=== PATIENT | female | born 1950 | race African-American/Black ===

== ENCOUNTER 2023-02-10 04:02 | Observation (INO) | payer MEDICARE, SELFPAY ==
[2023-02-10] VITALS (20 sets, daily range): BP systolic 146–204; BP diastolic 60–110; PULSE 74–107; RESP 16–24; TEMP 37.7–38.9; O2SAT 94–100; BMI 38.6; BMI 37.1
--- NOTE | 2023-02-10 04:17 | XR_ITS ---
The [address] [address] Patient Name: JELANI ACKERMAN MRN: [id number] date: 1950 Sex: F Assigned Patient Location: ER Current Patient Location: ED.MAIN Accession/Order Number: [id number] Exam Date: 02/10/2023 04:16 Report Date: 02/10/2023 05:15 At the request of: KAYLA HAWKINS Procedure: XR chest 1V EXAMINATION: XR chest 1V HISTORY: shortness of breath COMPARISON: 07/26/2018 TECHNIQUE: AP portable erect FINDINGS: LUNGS: Mild bibasilar infiltrates. The upper lung zones are clear VASCULATURE: No increased pulmonary vasculature. PLEURA: No pneumothorax, effusion, or pleural thickening. CARDIAC: No cardiomegaly or cardiac silhouette abnormality. MEDIASTINUM: No visible mass or adenopathy. Aortic atherosclerosis BONES: Mild degenerative disc disease and spondylosis without visible acute abnormalities. OTHER: Negative. XR/XR chest 1V IMPRESSION: Mild bibasilar infiltrates Electronically authenticated by: DONIS GAFFNEY Date: 02/10/2023 05:15
[2023-02-10 04:27] LABS: Adenovirus NOT DETECTED (NOT DETECTE); Bordetella parapertussis NOT DETECTED (NOT DETECTE); Coronavirus 229E NOT DETECTED (NOT DETECTE); Coronavirus HKU1 NOT DETECTED (NOT DETECTE); Coronavirus NL63 NOT DETECTED (NOT DETECTE); Coronavirus OC43 NOT DETECTED (NOT DETECTE); Human Metapneumovirus NOT DETECTED (NOT DETECTE); Human Rhinovirus/Enterovirus NOT DETECTED (NOT DETECTE); Influenza A NOT DETECTED (NOT DETECTE); Influenza B NOT DETECTED (NOT DETECTE); Mycoplasma pneumoniae NOT DETECTED (NOT DETECTE); Parainfluenza Virus 1 NOT DETECTED (NOT DETECTE); Parainfluenza Virus 2 NOT DETECTED (NOT DETECTE); Parainfluenza Virus 3 NOT DETECTED (NOT DETECTE); Parainfluenza Virus 4 NOT DETECTED (NOT DETECTE); Respiratory Syncytial Virus NOT DETECTED (NOT DETECTE)
--- NOTE | 2023-02-10 04:28 | ED_ITS ---
HPI - SOB/Dyspnea General Chief Complaint: Shortness of Breath/Dyspnea Stated Complaint: TROUBLE BREATHING COUGH Time Seen by Provider: 02/10/23 04:25 Mode of arrival: Wheelchair Limitations: no limitations History of Present Illness HPI Narrative: patient presents complaining of shortness of breath. Has not taken lasix for one week. Did not take lasix because she had to run several errands and she is not able to hold her urine once she takes Lasix. States she has hard time breathing when she lays down. No fever or cough. No nausea. Positive fever. Complains of a cold that started yesterday MD elicited complaint: shortness of breath Related Data Home Medications Medication Instructions Recorded Confirmed alendronate 70 mg tablet 70 mg PO .weekly 02/10/23 02/10/23 atorvastatin 40 mg tablet 40 mg PO DAILY 02/10/23 02/10/23 calcium carbonate 500 mg-vitamin 1 tab PO DAILY 02/10/23 02/10/23 D3 10 mcg (400 unit) tablet (Calcium 500 With D) carbamazepine 200 mg tablet 200 mg PO BID 02/10/23 02/10/23 carvedilol 25 mg tablet 25 mg PO Q12H 02/10/23 02/10/23 furosemide 40 mg tablet 40 mg PO DAILY 02/10/23 02/10/23 gabapentin 300 mg capsule 300 mg PO Q12H 02/10/23 02/10/23 glipizide 5 mg tablet 5 mg PO DAILY 02/10/23 02/10/23 losartan 50 mg tablet 50 mg PO BID 02/10/23 02/10/23 metformin 500 mg tablet 500 mg PO BID 02/10/23 02/10/23 timolol maleate 0.5 % eye drops 1 drp ophthalmic (eye) DAILY 02/10/23 02/10/23 tramadol 50 mg tablet 50 mg PO .dailly PRN pain 02/10/23 02/10/23 Allergies Allergy/AdvReac Type Severity Reaction Status Date / Time No Known Drug Allergies Allergy Verified 02/10/23 04:17 Review of Systems ROS Status of ROS 10 or more systems reviewed and unremarkable except as noted in history and below PFSH PFSH Social History Smoking status: Former smoker Exam Constitutional Vital Signs, click to edit/add: Last Vital Signs Temp 100 F 02/10/23 06:04 Pulse 104 H 02/10/23 06:04 Resp 20 02/10/23 06:04 BP 158/60 H 02/10/23 06:04 Pulse Ox 98 02/10/23 06:04 O2 Del Method Room Air 02/10/23 06:04 Common normals: no apparent distress, oriented x3, healthy appearing and alert Eye Common normals: PERRL, EOMs intact bilaterally and conjunctivae normal Respiratory Common normals: normal respiratory effort, no retractions, no use of accessory muscles and clear to auscultation bilaterally Cardio Common normals: regular rate, regular rhythm, S1 normal heart sound and S2 normal heart sound GI Common normals: Normal to inspection, nondistended, normoactive bowel sounds present, soft to palpation and non-tender Extremity Common normals: normal to inspection and full ROM Neuro Common normals: oriented x3, CN's II-XII intact bilaterally, moves all extremities, no focal motor deficits and no sensory deficits noted Psych Appearance: grossly normal Course Vital Signs Vital signs: Vital Signs Temperature 102 F H 02/10/23 04:08 Pulse Rate 102 H 02/10/23 04:08 Respiratory Rate 24 02/10/23 04:08 Blood Pressure 178/80 H 02/10/23 04:08 Pulse Oximetry 100 02/10/23 04:08 Oxygen Delivery Method Room Air 02/10/23 04:08 Temperature 100 F 02/10/23 06:04 Pulse Rate 104 H 02/10/23 06:04 Respiratory Rate 20 02/10/23 06:04 Blood Pressure 158/60 H 02/10/23 06:04 Pulse Oximetry 98 02/10/23 06:04 Oxygen Delivery Method Room Air 02/10/23 06:04 MDM - SOB/Dyspnea MDM Narrative Medical decision making narrative: patient presents with orthopnea, fever and hypertensive urgency. ADmits to non compliance with lasix for the past week. Workup demonstrated CHF, COVID19 and hypertensive urgency. Treated in the department with hydralazine and her BP improved from 204/110 to 158/60. Lasix 40IVP given and she has used bedside commode to urinate. Xray with bibasilar infiltrates. She is improved but remains tachycardic and orthopneic .Discussed with Hospitalist Dr Ba and patient accepted for Obs admission Lab Data Labs: Lab Results 08/26/23 08/26/23 Range/Units 04:13 04:16 WBC 8.3 (4.0-11.0) 10^3/uL RBC 3.92 L (4.20-5.40) 10^6/uL Hgb 10.8 L (12.0-16.0) g/dL Hct 32.2 L (36.0-48.0) % MCV 82.1 (81.0-99.0) fL MCH 27.6 (26.7-34.0) pg MCHC 33.5 (29.9-35.2) g/dL RDW 16.4 H (11.0-15.0) % Plt Count 223 (150-450) 10^3/uL MPV 9.3 L (9.5-13.5) fL Neut % (Auto) 75.2 H (43.0-75.0) % Lymph % (Auto) 10.4 L (20.5-60.0) % [place] % (Auto) 12.3 H (1.7-12.0) % Eos % (Auto) 1.0 (0.9-7.0) % Baso % (Auto) 0.7 (0.2-2.0) % Neut # (Auto) 6.2 (1.4-6.5) 10^3/uL Lymph # (Auto) 0.9 L (1.2-3.8) 10^3/uL [place] # (Auto) 1.0 H (0.3-0.8) 10^3/uL Eos # (Auto) 0.1 (0.0-0.7) 10^3/uL Baso # (Auto) 0.1 (0.0-0.1) 10^3/uL Abs Immat Gran (auto) 0.03 (0.00-0.03) 10^3/uL Imm/Tot Granulo (auto) 0.4 (0.0-0.5) % Sodium 135 L (136-145) mmol/L Potassium 3.8 (3.5-5.1) mmol/L Chloride 102 (98-107) mmol/L Carbon Dioxide 25.5 (21.0-32.0) mmol/L Anion Gap 11.3 BUN 15.0 (7.0-18.0) mg/dL Creatinine 0.96 (0.55-1.02) mg/dL Est GFR ( Amer) >60 (>=60) Est GFR (Non-Af Amer) 57 L (>=60) BUN/Creatinine Ratio 15.6 Glucose 145 H (74-106) mg/dL Calcium 9.2 (8.5-10.1) mg/dL Troponin I High Sens 7.6 (4.0-51.3) pg/mL NT-Pro-B Natriuret Pep 1033.0 H (<=900.0) pg/mL Adenovirus (PCR) Not detected (NOT DETECTE) C. pneumoniae DNA (PCR) Not detected (NOT DETECTE) Coronavirus Type OC43 Not detected (NOT DETECTE) Coronavirus Type HKU1 Not detected (NOT DETECTE) Coronavirus Type 229E Not detected (NOT DETECTE) Coronavirus Type NL63 Not detected (NOT DETECTE) Human Metapneumovir PCR Not detected (NOT DETECTE) M. pneumoniae (PCR) Not detected (NOT DETECTE) Parainfluenza PCR Not detected (NOT DETECTE) Parainfluenza 2 (PCR) Not detected (NOT DETECTE) Parainfluenza 3 (PCR) Not detected (NOT DETECTE) Parainfluenza 4 (PCR) Not detected (NOT DETECTE) RSV (RT-PCR) Not detected (NOT DETECTE) Entero/Rhino (PCR) Not detected (NOT DETECTE) SARS-CoV-2 (PCR) Detected A (NOT DETECTE) Bordetella pertussis (PCR) Not detected (NOT DETECTE) B parapertussis DNA PCR Not detected (NOT DETECTE) Influenza Type A (PCR) Not detected (NOT DETECTE) Influenza Type B (PCR) Not detected (NOT DETECTE) Discharge Plan Discharge Chief Complaint: Shortness of Breath/Dyspnea Clinical Impression: Hypertensive urgency, COVID-19, Congestive heart failure Patient Disposition: Admitted as Observation
--- NOTE | 2023-02-10 04:31 | ECG_ITS ---
The [facility] Test Date: 2023-02-10 Pat Name: JELANI ACKERMAN Department: Room: - Gender: Female Cook Box Filler: : 1950 Requested By: SHAIKH GUY Order Number: [id number] Reading MD: TAYE MORRIS Measurements Intervals [place] Rate: 104 P: 67 IL: 166 QRS: 36 QRSD: 76 T: 43 QT: 324 QTc: 384 Interpretive Statements 1120 Sinus tachycardia 9140 abnormal rhythm ECG No previous ECG available for comparison Electronically Signed On 02-11-2023 18:07:18 EDT by TAYE MORRIS
[2023-02-10 04:37] LABS: Basophils Absolute Auto 0.1 10^3/uL (0.0-0.1); Basophils Percent Auto 0.7 % (0.2-2.0); Eosinophils Absolute Auto 0.1 10^3/uL (0.0-0.7); Hematocrit 32.2 % (36.0-48.0); Hemoglobin 10.8 g/dL (12.0-16.0); Immature Granulocytes Abs Auto 0.03 10^3/uL (0.00-0.03); Immature Granulocytes Pct Auto 0.4 % (0.0-0.5); Lymphocytes Absolute Auto 0.9 10^3/uL (1.2-3.8); Lymphocytes Percent Auto 10.4 % (20.5-60.0); Mean Corpuscular HGB Conc 33.5 g/dL (29.9-35.2); Mean Corpuscular Hemoglobin 27.6 pg (26.7-34.0); Mean Corpuscular Volume 82.1 fL (81.0-99.0); Mean Platelet Volume 9.3 fL (9.5-13.5); Monocytes Percent Auto 12.3 % (1.7-12.0); Neutrophils Absolute Auto 6.2 10^3/uL (1.4-6.5); Neutrophils Percent Auto 75.2 % (43.0-75.0); Platelet Count 223 10^3/uL (150-450); Red Blood Count 3.92 10^6/uL (4.20-5.40); Red Cell Distribution Width 16.4 % (11.0-15.0); White Blood Count 8.3 10^3/uL (4.0-11.0)
[2023-02-10 04:56] LABS: Anion Gap 11.3; BUN Creatinine Ratio 15.6; Calcium 9.2 mg/dL (8.5-10.1); Carbon Dioxide 25.5 mmol/L (21.0-32.0); Chloride 102 mmol/L (98-107); Estimated GFR (African America >60 (>=60); Estimated GFR (Non-African Ame 57 (>=60); Glucose 145 mg/dL (74-106); Potassium 3.8 mmol/L (3.5-5.1); Sodium 135 mmol/L (136-145); Troponin I High Sensitivity 7.6 pg/mL (4.0-51.3)
[2023-02-10] MEDS: ACETAMINOPHEN 500 MG TABLET 1000 MG PO (05:11)
[2023-02-10] MEDS: FUROSEMIDE 40 MG/4 ML VIAL IVP (05:12)
[2023-02-10] MEDS: HYDRALAZINE HCL 20 MG/ML VIAL 5 MG IVP (05:12)
[2023-02-10 05:15] LABS: SARS-CoV-2 DETECTED (NOT DETECTE)
--- NOTE | 2023-02-10 07:48 | P.HP_ITS ---
H&P: HPI History of Present Illness Chief complaint: TROUBLE BREATHING/COUGH/CHF/HYPERTENSION/ + COVID Narrative: patient is a 73-year-old -Armenian female with past medical history of diastolic heart failure, hypertension, type 2 diabetes, chronic kidney disease. She presented to the Emergency Room this morning with shortness of breath at rest. She said yesterday she developed her symptoms and was extremely fatigued with a runny nose. She has Lasix 40 mg by mouth that she takes as needed with any acute symptoms of overload. She has not noticed any increased swelling except for some mild pain of her left lower extremity. She denies any cough but has also been experiencing some fevers and chills. Her daughter brought her to the Emergency Room when she was having issues breathing and was found to be COVID positive. Elevated proBNP, daughter and niece present at bedside during admission exam. Review of Systems ROS Narrative ROS: a complete review of systems were reviewed with patient and are positive as below or listed in History of Chief Complaint. General: fever and chills, no night sweats Head: no headache, trauma, visual changes, nausea or vomiting Skin: no reported rashes, itching or sores Eyes: no blurriness of vision Ears: no reported hearing loss, vertigo, earache, or tinnitus Throat: no sore throat, hoarseness, swelling of neck, or tongue pain Heart: no chest pain Lungs: shortness of breath and cough GI: no diarrhea or vomiting/nausea Urinary: no urinary urgency, frequency or pain Neuro: no numbness or tingling HEM: no bleeding issues or bruising ENDO: no thyroid problems Psych: no anxiety or depression PFSH [facility] Medical History (Updated 02/10/23 @ 10:43 by Kenya Ba DO) Social History Smoking status: Former smoker Meds Home Medications and Allergies Home Medications Medication Instructions Recorded Confirmed Type alendronate 70 mg tablet 70 mg PO .weekly 02/10/23 02/10/23 History atorvastatin 40 mg tablet 40 mg PO DAILY 02/10/23 02/10/23 History calcium carbonate 500 mg-vitamin 1 tab PO DAILY 02/10/23 02/10/23 History D3 10 mcg (400 unit) tablet (Calcium 500 With D) carbamazepine 200 mg tablet 200 mg PO BID 02/10/23 02/10/23 History carvedilol 25 mg tablet 25 mg PO Q12H 02/10/23 02/10/23 History furosemide 40 mg tablet 40 mg PO DAILY 02/10/23 02/10/23 History gabapentin 300 mg capsule 300 mg PO Q12H 02/10/23 02/10/23 History glipizide 5 mg tablet 5 mg PO DAILY 02/10/23 02/10/23 History losartan 50 mg tablet 50 mg PO BID 02/10/23 02/10/23 History metformin 500 mg tablet 500 mg PO BID 02/10/23 02/10/23 History timolol maleate 0.5 % eye drops 1 drp ophthalmic (eye) DAILY 02/10/23 02/10/23 History tramadol 50 mg tablet 50 mg PO .dailly PRN pain 02/10/23 02/10/23 History Allergies Allergy/AdvReac Type Severity Reaction Status Date / Time No Known Drug Allergies Allergy Verified 02/10/23 04:17 Exam Narrative Exam Narrative: General: Patient is alert, and oriented to person, place and time with normal affect, proper hygiene Skin: no visible rashes, or ulcers Head: atraumatic, acephalic Eyes: PERRLA, no nystagmus present, conjunctiva clear, no scleral icterus Ears: normal gross auditory acuity Mouth/Throat: patient wearing a mask Neck: no masses palpated, normal thyroid, no JVD or audible carotid bruits Heart: Normal rate and rhythm, no murmurs/rubs/gallops Lungs: no audible wheezes, crackles and normal breath sounds all lung mantilla Abdomen: Normal audible bowel sounds, no distension, No palpable masses, no organomegaly, no rebound/guarding/ or rigidity Musculoskeletal: muscle atrophy noted, ROM is limited due to being in hospital bed, mild swelling bilateral lower extremities Vascular: Normal carotid, radial, femoral, posterior tibial, and dorsalis pedis pulses Lymph: no supraclavicular, axillary, or anterior/posterior cervical adenopathy Neuro: CN II-X grossly intact, normal sensation upper and lower extremities Constitutional Vital Signs, click to edit/add: Last Vital Signs Temp 100 F 02/10/23 06:04 Pulse 102 H 02/10/23 06:35 Resp 20 02/10/23 06:35 BP 150/68 H 02/10/23 06:35 Pulse Ox 98 02/10/23 06:35 O2 Del Method Room Air 02/10/23 06:35 Results Labs Labs: Short CBC 02/10/23 Range/Units 04:13 WBC 8.3 (4.0-11.0) 10^3/uL Hgb 10.8 L (12.0-16.0) g/dL Hct 32.2 L (36.0-48.0) % Plt Count 223 (150-450) 10^3/uL BMP 02/10/23 04:13 Sodium 135 L Potassium 3.8 Chloride 102 Carbon Dioxide 25.5 BUN 15.0 Creatinine 0.96 Glucose 145 H Calcium 9.2 Assessment and Plan Assessment and Plan (1) Acute diastolic (congestive) heart failure: Assessment and Plan: elevated proBNP in the one thousands, given a dose of Lasix 40 mg IV will continue this tomorrow morning. Monitor daily weights and and strict I's and O's and fluid restriction. (2) Hypertensive urgency: Assessment and Plan: improved with hydralazine, will continue home dosage of Coreg, and losartan (3) COVID-19: Assessment and Plan: monitor for any worsening signs, bilateral infiltrates noted on chest x-ray. Patient was started on Paxlovid (4) Type 2 diabetes mellitus: Assessment and Plan: monitor fingersticks before every meal and daily at bedtime finding scale insulin if needed (5) Hypertension: Assessment and Plan: continue home medication (6) Diastolic heart failure: Plan patient is a full code Continue Lovenox for deep vein thrombosis prophylaxis Patient is observation status and is not expected to stay more than two midnights
[2023-02-10] MEDS: TIMOLOL MALEATE 0.5% OP SOL 100 DROPS/5 ML BOTTLE 1 DROP OP (09:05)
[2023-02-10] MEDS: CARVEDILOL 25 MG TABLET PO ×2 (09:06→20:32)
[2023-02-10] MEDS: CARBAMAZEPINE 200 MG TABLET PO ×2 (09:06→20:32)
[2023-02-10] MEDS: ACETAMINOPHEN 325 MG TABLET 650 MG PO ×2 (09:06→17:09)
[2023-02-10] MEDS: METFORMIN HCL 500 MG TABLET PO (09:06)
[2023-02-10] MEDS: ENOXAPARIN SODIUM 40 MG/0.4 ML SYRINGE SUBQ (09:06)
[2023-02-10] MEDS: LOSARTAN POTASSIUM 50 MG TABLET PO ×2 (09:07→20:32)
[2023-02-10] MEDS: GABAPENTIN 300 MG CAPSULE PO ×2 (09:07→20:32)
[2023-02-10 12:09] LABS: Glucometer 161 mg/dL (74-106)
[2023-02-10] MEDS: ALBUTEROL SULFATE 200 PUFF/6.7 GM INHALER IH ×2 (17:00→22:20)
[2023-02-10] MEDS: GLIPIZIDE 5 MG TABLET PO (17:14)
[2023-02-10 20:24] LABS: Glucometer 162 mg/dL (74-106)
[2023-02-10] MEDS: IBUPROFEN 600 MG TABLET PO (20:35)
[2023-02-10 20:46] LABS: Bilirubin Urine NEGATIVE (NEGATIVE); Blood Urine SMALL (NEGATIVE); Clarity Urine CLEAR (CLEAR); Color Urine YELLOW (YELLOW); Glucose Urine UA NEGATIVE (NEGATIVE); Ketones Urine TRACE mg/dL (NEGATIVE); Leukocyte Esterase Urine NEGATIVE (NEGATIVE); Nitrite Urine POSITIVE (NEGATIVE); Protein Urine 30 mg/dL (NEG/TRACE); pH Urine 5.5 (5.0-9.0)
[2023-02-10 20:47] LABS: Urine Microscopic Indicated YES
[2023-02-10 21:01] LABS: Bacteria Urine LARGE #/HPF (NONE SEEN); Cast Seen? NONE SEEN #/LPF (NONE SEEN); Crystals Seen? None Seen #/HPF (None Seen); Mucus Urine NONE SEEN (NONE SEEN); RBC Urine 0-2 #/HPF (0-2); Squamous Epithelial Cell Urine FEW #/LPF (NONE/RARE); Urine Culture Indicated YES
[2023-02-10] MEDS: ATORVASTATIN CALCIUM 40 MG TABLET PO (21:11)
[2023-02-10] MEDS: CEFTRIAXONE 1,000 MG in 0.9 % SODIUM CHLORIDE 50 ML 100 MG IV (21:42)
[2023-02-11] VITALS (19 sets, daily range): BP systolic 155–163; BP diastolic 86; PULSE 66–88; RESP 16–20; TEMP 36.1–37; O2SAT 96–100
[2023-02-11 05:09] LABS: Basophils Percent Auto 0.6 % (0.2-2.0); Eosinophils Percent Auto 0.2 % (0.9-7.0); Hematocrit 30.4 % (36.0-48.0); Immature Granulocytes Abs Auto 0.02 10^3/uL (0.00-0.03); Immature Granulocytes Pct Auto 0.4 % (0.0-0.5); Lymphocytes Absolute Auto 1.4 10^3/uL (1.2-3.8); Lymphocytes Percent Auto 26.6 % (20.5-60.0); Mean Corpuscular HGB Conc 32.9 g/dL (29.9-35.2); Mean Corpuscular Hemoglobin 27.1 pg (26.7-34.0); Mean Corpuscular Volume 82.4 fL (81.0-99.0); Mean Platelet Volume 9.4 fL (9.5-13.5); Monocytes Absolute Auto 1.1 10^3/uL (0.3-0.8); Monocytes Percent Auto 21.2 % (1.7-12.0); Neutrophils Absolute Auto 2.7 10^3/uL (1.4-6.5); Platelet Count 179 10^3/uL (150-450); Red Blood Count 3.69 10^6/uL (4.20-5.40); Red Cell Distribution Width 16.5 % (11.0-15.0); White Blood Count 5.2 10^3/uL (4.0-11.0)
[2023-02-11] MEDS: ALBUTEROL SULFATE 200 PUFF/6.7 GM INHALER IH ×4 (05:30→23:35)
[2023-02-11 05:34] LABS: Alanine Aminotransferase 24 U/L (14-59); Albumin Globulin Ratio 0.8; Albumin Level 3.1 g/dL (3.4-5.0); Alkaline Phosphatase 65 U/L (46-116); Anion Gap 9.2; Aspartate Amino Transferase 28 U/L (15-37); BUN Creatinine Ratio 17.6; Bilirubin Total 0.3 mg/dL (0.2-1.0); Calcium 8.3 mg/dL (8.5-10.1); Carbon Dioxide 26.7 mmol/L (21.0-32.0); Chloride 99 mmol/L (98-107); Estimated GFR (African America >60 (>=60); Estimated GFR (Non-African Ame >60 (>=60); Globulin 3.9 g/dL; Glucose 71 mg/dL (74-106); Sodium 132 mmol/L (136-145)
[2023-02-11 06:04] LABS: Potassium 2.9 mmol/L (3.5-5.1)
[2023-02-11] MEDS: GABAPENTIN 300 MG CAPSULE PO ×2 (08:30→21:43)
[2023-02-11] MEDS: ENOXAPARIN SODIUM 40 MG/0.4 ML SYRINGE SUBQ (08:30)
[2023-02-11] MEDS: LOSARTAN POTASSIUM 50 MG TABLET PO ×2 (08:30→21:43)
[2023-02-11] MEDS: METFORMIN HCL 500 MG TABLET PO ×2 (08:30→16:24)
[2023-02-11] MEDS: GLIPIZIDE 5 MG TABLET PO (08:30)
[2023-02-11] MEDS: POTASSIUM CHLORIDE 10 MEQ ER TABLET 20 MEQ PO ×2 (08:31→21:42)
[2023-02-11] MEDS: TIMOLOL MALEATE 0.5% OP SOL 100 DROPS/5 ML BOTTLE 1 DROP OP (08:31)
[2023-02-11] MEDS: CARBAMAZEPINE 200 MG TABLET PO ×2 (08:32→21:43)
[2023-02-11] MEDS: CARVEDILOL 25 MG TABLET PO ×2 (08:33→21:42)
--- NOTE | 2023-02-11 13:56 | P.PN_ITS ---
Progress Note: Subjective Subjective Interval history: patient is a 73-year-old -Japanese female with past medical history of diastolic heart failure, hypertension, type 2 diabetes, chronic kidney disease. She presented to the Emergency Room this morning with shortness of breath at rest. She said yesterday she developed her symptoms and was extremely fatigued with a runny nose. She has Lasix 40 mg by mouth that she takes as needed with any acute symptoms of overload. She has not noticed any increased swelling except for some mild pain of her left lower extremity. She denies any cough but has also been experiencing some fevers and chills. Her daughter brought her to the Emergency Room when she was having issues breathing and was found to be COVID positive. This morning patient is having some nausea and says she didn't sleep well last night. Normal vitals, and both legs hurt. Exam Narrative Exam Narrative: General: Patient is alert, and oriented to person, place and time with normal affect, proper hygiene Skin: no visible rashes, or ulcers Head: atraumatic, acephalic Eyes: PERRLA, no nystagmus present, conjunctiva clear, no scleral icterus Ears: normal gross auditory acuity Mouth/Throat: patient wearing a mask Neck: no masses palpated, normal thyroid, no JVD or audible carotid bruits Heart: Normal rate and rhythm, no murmurs/rubs/gallops Lungs: no audible wheezes, crackles and normal breath sounds all lung mantilla Abdomen: Normal audible bowel sounds, no distension, No palpable masses, no organomegaly, no rebound/guarding/ or rigidity Musculoskeletal: muscle atrophy noted, ROM is limited due to being in hospital bed, mild swelling bilateral lower extremities Vascular: Normal carotid, radial, femoral, posterior tibial, and dorsalis pedis pulses Lymph: no supraclavicular, axillary, or anterior/posterior cervical adenopathy Neuro: CN II-X grossly intact, normal sensation upper and lower extremities Constitutional Vital Signs, click to edit/add: Last Vital Signs Temp 98.4 F 02/11/23 04:10 Pulse 68 02/11/23 12:12 Resp 20 02/11/23 11:14 BP 160/86 H 02/11/23 04:10 Pulse Ox 96 02/11/23 11:20 O2 Del Method Room Air 02/11/23 11:20 Progress Note: Objective Labs Labs: Short CBC 02/11/23 Range/Units 04:26 WBC 5.2 (4.0-11.0) 10^3/uL Hgb 10.0 L (12.0-16.0) g/dL Hct 30.4 L (36.0-48.0) % Plt Count 179 (150-450) 10^3/uL BMP 02/11/23 04:26 Sodium 132 L Potassium 2.9 L* Chloride 99 Carbon Dioxide 26.7 BUN 16.0 Creatinine 0.91 Glucose 71 L Calcium 8.3 L Liver Function 02/11/23 Range/Units 04:26 Total Bilirubin 0.3 (0.2-1.0) mg/dL AST 28 (15-37) U/L ALT 24 (14-59) U/L Alkaline Phosphatase 65 (46-116) U/L Albumin 3.1 L (3.4-5.0) g/dL Urine 02/10/23 Range/Units 20:20 Urine Color Yellow (YELLOW) Urine Clarity Clear (CLEAR) Urine pH 5.5 (5.0-9.0) Ur Specific [place] 1.020 (1.005-1.025) Urine Protein 30 A (NEG/TRACE) mg/dL Urine Glucose (UA) Negative (NEGATIVE) mg/dL Progress Note: A&P Assessment and Plan (1) Acute diastolic (congestive) heart failure: (2) Hypertensive urgency: (3) COVID-19: (4) Type 2 diabetes mellitus: (5) Hypertension: (6) Diastolic heart failure: (7) UTI (urinary tract infection): Plan (1) Acute diastolic (congestive) heart failure: Assessment and Plan: elevated proBNP in the one thousands, given a dose of Lasix 40 mg IV will continue this tomorrow morning. Monitor daily weights and and strict I's and O's and fluid restriction. (2) Hypertensive urgency: Assessment and Plan: improved with hydralazine, will continue home dosage of Coreg, and losartan (3) COVID-19: Assessment and Plan: monitor for any worsening signs, bilateral infiltrates noted on chest x-ray. Patient was started on Paxlovid (4) Type 2 diabetes mellitus: Assessment and Plan: monitor fingersticks before every meal and daily at bedtime finding scale insulin if needed (5) Hypertension: Assessment and Plan: continue home medication (6) hypokalemia replace with klorcon 20meq BID (7) UTI-continue rocephin Plan patient is a full code Continue Lovenox for deep vein thrombosis prophylaxis Patient is observation status and is not expected to stay more than two midnights hopeful discharge tomorrow
[2023-02-11 20:19] LABS: Glucometer 168 mg/dL (74-106)
[2023-02-11] MEDS: ATORVASTATIN CALCIUM 40 MG TABLET PO (21:42)
[2023-02-11] MEDS: CEFTRIAXONE 1,000 MG in 0.9 % SODIUM CHLORIDE 50 ML 100 MG IV (21:43)
[2023-02-12] VITALS (7 sets, daily range): BP systolic 134; BP diastolic 65; PULSE 67–77; RESP 18–20; TEMP 36.9; O2SAT 94–100
[2023-02-12 05:06] LABS: Basophils Percent Auto 0.4 % (0.2-2.0); Eosinophils Percent Auto 0.4 % (0.9-7.0); Hematocrit 31.3 % (36.0-48.0); Hemoglobin 10.2 g/dL (12.0-16.0); Immature Granulocytes Abs Auto 0.02 10^3/uL (0.00-0.03); Immature Granulocytes Pct Auto 0.4 % (0.0-0.5); Lymphocytes Absolute Auto 2.6 10^3/uL (1.2-3.8); Lymphocytes Percent Auto 44.9 % (20.5-60.0); Mean Corpuscular HGB Conc 32.6 g/dL (29.9-35.2); Mean Corpuscular Hemoglobin 26.9 pg (26.7-34.0); Mean Corpuscular Volume 82.6 fL (81.0-99.0); Mean Platelet Volume 9.7 fL (9.5-13.5); Monocytes Absolute Auto 0.7 10^3/uL (0.3-0.8); Monocytes Percent Auto 12.6 % (1.7-12.0); Neutrophils Absolute Auto 2.4 10^3/uL (1.4-6.5); Neutrophils Percent Auto 41.3 % (43.0-75.0); Platelet Count 185 10^3/uL (150-450); Red Blood Count 3.79 10^6/uL (4.20-5.40); Red Cell Distribution Width 16.6 % (11.0-15.0); White Blood Count 5.7 10^3/uL (4.0-11.0)
[2023-02-12 05:48] LABS: Alanine Aminotransferase 28 U/L (14-59); Albumin Globulin Ratio 0.8; Albumin Level 2.9 g/dL (3.4-5.0); Alkaline Phosphatase 59 U/L (46-116); Anion Gap 9.7; Aspartate Amino Transferase 30 U/L (15-37); BUN Creatinine Ratio 10.6; Bilirubin Total 0.2 mg/dL (0.2-1.0); Carbon Dioxide 25.7 mmol/L (21.0-32.0); Chloride 106 mmol/L (98-107); Estimated GFR (African America >60 (>=60); Estimated GFR (Non-African Ame >60 (>=60); Globulin 3.7 g/dL; Glucose 104 mg/dL (74-106); Potassium 3.4 mmol/L (3.5-5.1); Sodium 138 mmol/L (136-145); Total Protein 6.6 g/dL (6.4-8.2)
[2023-02-12] MEDS: ALBUTEROL SULFATE 200 PUFF/6.7 GM INHALER IH ×2 (05:55→11:01)
--- NOTE | 2023-02-12 08:38 | PM.DS1 ---
DS: Providers Provider Date of admission: 02/10/23 06:20 Primary care physician: Shaikh Andrea MD Admitting clinician: Anjum Hannah Consults: 02/10/23 07:43 Occupational Therapy Eval and Treat Routine Reason for consultation: deconditioning Has provider been notified: No Physical Therapy Eval and Treat Routine Reason for consultation: deconditioning Has provider been notified: No Discharging clinician: Kenya Ba DS: Diagnosis Discharge Diagnosis (1) Acute diastolic (congestive) heart failure: (2) Hypertensive urgency: (3) COVID-19: (4) Type 2 diabetes mellitus: (5) Hypertension: (6) Diastolic heart failure: (7) UTI (urinary tract infection): DS: Summary Hospital Course Hospital Course: symptoms of acute congestive heart failure seemed to improve with one dose of IV Lasix 40 mg. Patient did experience some hypokalemia which was normalized on by mouth Klor-Con 20 mEq twice a day. Patient remained afebrile overnight and is feeling much better today after two days on the Paxlovid. Patient was also started on Rocephin which will be transitioned to ciprofloxacin for urinary tract infection. ELVER Murphy today. Addition of Paxlovid to finish pack and ciprofloxacin no other changes to her medications will resume all of these when she is discharged home today. Patient has not required any oxygen secondary to having Covid 19, afebrile. She feels overall improved from beginning of this day. She will be sent home with home health services. follow up with PCP 5-7 days Status at Discharge Functional status at discharge: independent ambulation Time Spent with Patient Time attestation: Total time spent providing and/or coordinating discharge services: Exam Narrative Exam Narrative: General: Patient is alert, and oriented to person, place and time with normal affect, proper hygiene Skin: no visible rashes, or ulcers Head: atraumatic, acephalic Eyes: PERRLA, no nystagmus present, conjunctiva clear, no scleral icterus Neck: no masses palpated, normal thyroid, no JVD or audible carotid bruits Heart: Normal rate and rhythm, no murmurs/rubs/gallops Lungs: no audible wheezes, crackles and normal breath sounds all lung mantilla Abdomen: Normal audible bowel sounds, no distension, No palpable masses, no organomegaly, no rebound/guarding/ or rigidity Musculoskeletal: muscle atrophy noted, ROM is limited due to being in hospital bed, no swelling bilateral lower extremities Vascular: Normal carotid, radial, femoral, posterior tibial, and dorsalis pedis pulses Lymph: no supraclavicular, axillary, or anterior/posterior cervical adenopathy Neuro: CN II-X grossly intact, normal sensation upper and lower extremities Constitutional Vital Signs, click to edit/add: Last Vital Signs Temp 98.5 F 02/12/23 06:00 Pulse 72 02/12/23 07:46 Resp 20 02/12/23 06:00 BP 134/65 02/12/23 06:00 Pulse Ox 94 L 02/12/23 06:00 O2 Del Method Room Air 02/12/23 06:00 DS: Data Data Completed and Pending Labs on day of discharge: Labs from last 24 hours 02/12/23 02/11/23 04:23 20:14 WBC 5.7 RBC 3.79 L Hgb 10.2 L Hct 31.3 L MCV 82.6 MCH 26.9 MCHC 32.6 RDW 16.6 H Plt Count 185 MPV 9.7 Neut % (Auto) 41.3 L Lymph % (Auto) 44.9 [place] % (Auto) 12.6 H Eos % (Auto) 0.4 L Baso % (Auto) 0.4 Neut # (Auto) 2.4 Lymph # (Auto) 2.6 [place] # (Auto) 0.7 Eos # (Auto) 0.0 Baso # (Auto) 0.0 Abs Immat Gran (auto) 0.02 Imm/Tot Granulo (auto) 0.4 Sodium 138 Potassium 3.4 L Chloride 106 Carbon Dioxide 25.7 Anion Gap 9.7 BUN 9.0 Creatinine 0.85 Est GFR ( Amer) >60 Est GFR (Non-Af Amer) >60 BUN/Creatinine Ratio 10.6 Glucose 104 Calcium 8.0 L Total Bilirubin 0.2 AST 30 ALT 28 Alkaline Phosphatase 59 NT-Pro-B Natriuret Pep 251.0 Total Protein 6.6 Albumin 2.9 L Globulin 3.7 Albumin/Globulin Ratio 0.8 POC Glucose 168 H Discharge Plan Discharge Disposition: Home Health Service Discharge Medications: New Paxlovid 300 mg (150 mg x 2)-100 mg Tablets,Dose Pack 1 ea PO BID Qty: 30 0RF Rx Instructions: patient will be sent home with remainder of pack inpatient ciprofloxacin HCl 500 mg tablet 500 mg PO Q12H 7 Days Qty: 14 0RF Continued alendronate 70 mg tablet 70 mg PO .weekly atorvastatin 40 mg tablet 40 mg PO DAILY calcium carbonate-vitamin D3 [Calcium 500 With D] 500 mg-10 mcg (400 unit) tablet 1 tab PO DAILY carbamazepine 200 mg tablet 200 mg PO BID carvedilol 25 mg tablet 25 mg PO Q12H furosemide 40 mg tablet 40 mg PO DAILY gabapentin 300 mg capsule 300 mg PO Q12H glipizide 5 mg tablet 5 mg PO DAILY losartan 50 mg tablet 50 mg PO BID metformin 500 mg tablet 500 mg PO BID timolol maleate 0.5 % drops 1 drp OPHTHALMIC (EYE) DAILY Rx Instructions: 1 drop both eyes every morning tramadol 50 mg tablet 50 mg PO .dailly PRN (Reason: pain) Activity: increase activity as tolerated Diet: advance to your usual diet Patient Instructions: Ciprofloxacin (By mouth), Nirmatrelvir/Ritonavir (By mouth) (Paxlovid), Heart Healthy Diet (DC), Droplet Precautions (ED), COVID-19 (Coronavirus Disease 2019) (ELVER) Box Annealer/Control Panel Operator Instructions: Discharge with [facility], phone number is [phone], they will contact within 48 hours of discharge. Forms: Portal Instructions Follow Up Appointments: Follow up appt. with Dr. Mendez on @ 2:45pm Office #: [phone] This is the soonest available appt. - Dr. Mendez on vacation
[2023-02-12] MEDS: CARBAMAZEPINE 200 MG TABLET PO (08:46)
[2023-02-12] MEDS: POTASSIUM CHLORIDE 10 MEQ ER TABLET 20 MEQ PO (08:46)
[2023-02-12] MEDS: METFORMIN HCL 500 MG TABLET PO (08:46)
[2023-02-12] MEDS: GABAPENTIN 300 MG CAPSULE PO (08:47)
[2023-02-12] MEDS: LOSARTAN POTASSIUM 50 MG TABLET PO (08:47)
[2023-02-12] MEDS: CARVEDILOL 25 MG TABLET PO (08:47)
[2023-02-12] MEDS: GLIPIZIDE 5 MG TABLET PO (08:47)
[2023-02-12] MEDS: ENOXAPARIN SODIUM 40 MG/0.4 ML SYRINGE SUBQ (08:47)
[2023-02-12] MEDS: TIMOLOL MALEATE 0.5% OP SOL 100 DROPS/5 ML BOTTLE 1 DROP OP (08:48)
[2023-02-12 11:15] LABS: Glucometer 148 mg/dL (74-106)
--- NOTE | 2023-02-12 11:20 | SWNOTE1 ---
SW received message from case management and pt is agreeable to home health and it is recommended. Pt did not have a preference, SW sent referral to [facility]. SW recevied call from [facility] and they do not have the staffing. SW sent referral to [facility].
--- NOTE | 2023-02-12 11:34 | CM.NOTE ---
Rounds made with catarino Wilson for discharge to home today. PT recommends HH at discharge. Pt does not have a preference but agrees to HH.
--- NOTE | 2023-02-12 11:48 | PT.DAILY ---
Physical Therapy Daily Note PT Daily Note/Assess Start: 02/12/23 11:45 Freq: Status: Active Protocol: Document 02/12/23 11:45 NICOLE (Rec: 02/12/23 11:48 RODWASHINGTON [id number]) Physical Therapy Daily Note/Assessment Time In/Time Out Time In 11:30 Time Out 11:45 Pain In Pain N/A Pain Out Pain N/A Subjective Subjective Supine upon arrival. Agrees to PT. SpO2 97% on room air prior to session. Therapeutic Exercise Time Therapeutic Exercise Minutes (minutes) 5 Therapeutic Exercise Units 1 Therapeutic Exercise Treatment Therapeutic Exercise Treatment Seated LE strengthening ex complete while sitting EOB unsupported - 10x ea. Therapeutic Activity Time Therapeutic Activity Minutes (minutes) 8 Therapeutic Activity Units 1 Therapeutic Activity Treatment Bed Mobility Ability Modified Independent Chair Transfer Ability Modified Independent Therapeutic Activity Comments Pt performs supine>sit transfer with Chastity due to needing increased time to complete this transfer. Sits EOB unsupported for 5 min to complete seated ex without LOB - good dynamic sitting balance. Sit>stand Chastity as she needs bed elevated. Amb laps in room for 100' total with RW , SBA for safety. No LOB - slow mahendra. Returned supine IND. Remains supine with call light in reach and needs met. Total Physical Therapy Time Total Therapy Minutes 13 Total Physical Therapy Units 2 Summary Daily Note Summary Improved transfer ability and gait endurance .SPO2 94% with activity on room air.
--- NOTE | 2023-02-12 11:56 | SWNOTE1 ---
[facility] is not able to accept, referral sent to [facility] and they are able to accept. SW let nursing know and pt.
--- NOTE | 2023-02-12 12:21 | CM.NOTE ---
Medicare Outpatient Observation Notice discussed with pt, pt verbalizes understanding and signs paper. Original given to pt and copy placed on pt's chart.
--- NOTE | 2023-02-15 15:55 | CM.DCFOLLOWU ---
3 discharge follow up calls were attempted, no answer, went to voicemail all 3 attempts.
== END 2023-02-12 15:08 | disposition home health service (06) ==
LOC: ER 06:23 → MS 07:44
PROVIDERS: Internal Medicine; Admitting Provider Family Medicine; Emergency Provider Internal Medicine; PCP Internal Medicine; Visit Provider Family Medicine
DX: I11.0 Hypertensive heart disease with heart failure (principal); I50.33 Acute on chronic diastolic (congestive) heart failure; U07.1 COVID-19; I16.0 Hypertensive urgency; E11.9 Type 2 diabetes mellitus without complications; N39.0 Urinary tract infection, site not specified; E87.6 Hypokalemia; Z79.899 Other long term (current) drug therapy; Z79.84 Long term (current) use of oral hypoglycemic drugs; E11.22 Type 2 diabetes mellitus with diabetic chronic kidney disease; N18.9 Chronic kidney disease, unspecified; T50.1X6A Underdosing of loop [high-ceiling] diuretics, initial encounter; Z91.128 Patient's intentional underdosing of medication regimen for other reason; R91.8 Other nonspecific abnormal finding of lung field; Z87.891 Personal history of nicotine dependence; B96.1 Klebsiella pneumoniae [K. pneumoniae] as the cause of diseases classified elsewhere
CPT/HCPCS: 0202U; 36415; 51702; 51798; 71045; 80048; 80053; 81001; 82948; 83880; 84484; 85025; 87040; 87086; 87150; 87186; 93005; 94640; 94761; 96365; 96372; 96375; 97110; 97162; 97530; 99285; G0378

== ENCOUNTER 2023-03-05 16:14 | Outpatient (OUT) | payer MEDICARE, SELFPAY ==
[2023-03-05 16:50] LABS: Anion Gap 11.5; BUN Creatinine Ratio 16.8; Calcium 9.2 mg/dL (8.5-10.1); Carbon Dioxide 30.5 mmol/L (21.0-32.0); Chloride 103 mmol/L (98-107); Estimated GFR (African America >60 (>=60); Estimated GFR (Non-African Ame 58 (>=60); Glucose 110 mg/dL (74-106); Sodium 141 mmol/L (136-145)
== END 2023-03-05 16:15 | disposition home or self-care (01) ==
PROVIDERS: PCP Internal Medicine; Visit Provider Internal Medicine
DX: I10 Essential (primary) hypertension (principal)
CPT/HCPCS: 36415; 80048

== ENCOUNTER 2023-04-16 10:43 | Outpatient (OUT) | payer MEDICARE, SELFPAY ==
--- NOTE | 2023-04-16 10:56 | XR_ITS ---
The [address] [address] Patient Name: JELANI ACKERMAN MRN: [id number] date: 1950 Sex: F Assigned Patient Location: [facility] Current Patient Location: [facility] Accession/Order Number: [id number] Exam Date: 04/16/2023 11:17 Report Date: 04/16/2023 11:28 At the request of: SHAIKH GUY Procedure: XR chest 2V EXAM: XR chest 2V HISTORY: Post COVID Chronic Cough R05.3 COMPARISON: None. TECHNIQUE: PA and lateral views of the chest. FINDINGS: The cardiomediastinal silhouette is normal. No focal consolidation is identified. There is no pneumothorax. No pleural effusion is noted. The osseous structures are intact. XR/XR chest 2V IMPRESSION: No acute cardiopulmonary process. Electronically authenticated by: SABINO BRAXTON Date: 04/16/2023 11:28
== END 2023-04-16 10:44 | disposition home or self-care (01) ==
LOC: RAD 10:45
PROVIDERS: PCP Internal Medicine; Visit Provider Internal Medicine
DX: R05.3 Chronic cough (principal); E66.9 Obesity, unspecified; Z68.30 Body mass index [BMI] 30.0-30.9, adult
CPT/HCPCS: 71046

== ENCOUNTER 2023-12-03 12:11 | Outpatient (OUT) | payer MEDICARE, SELFPAY ==
[2023-12-03 12:41] LABS: Basophils Absolute Auto 0.1 10^3/uL (0.0-0.1); Basophils Percent Auto 0.8 % (0.2-2.0); Eosinophils Absolute Auto 0.1 10^3/uL (0.0-0.7); Eosinophils Percent Auto 1.1 % (0.9-7.0); Hematocrit 33.8 % (36.0-48.0); Hemoglobin 10.9 g/dL (12.0-16.0); Immature Granulocytes Abs Auto 0.03 10^3/uL (0.00-0.03); Immature Granulocytes Pct Auto 0.3 % (0.0-0.5); Lymphocytes Absolute Auto 2.8 10^3/uL (1.2-3.8); Mean Corpuscular HGB Conc 32.2 g/dL (29.9-35.2); Mean Corpuscular Hemoglobin 27.1 pg (26.7-34.0); Mean Corpuscular Volume 84.1 fL (81.0-99.0); Mean Platelet Volume 9.3 fL (9.5-13.5); Monocytes Absolute Auto 0.7 10^3/uL (0.3-0.8); Neutrophils Percent Auto 57.8 % (43.0-75.0); Platelet Count 236 10^3/uL (150-450); Red Blood Count 4.02 10^6/uL (4.20-5.40); Red Cell Distribution Width 15.6 % (11.0-15.0); White Blood Count 8.7 10^3/uL (4.0-11.0)
[2023-12-03 13:40] LABS: Creatinine Urine Random 88.86 mg/dL (20.00-300.00); Microalbum Creatinine Ratio Ur 14.6 mg/g (0.0-29.9); Microalbumin Urine Random <1.3 mg/dL (<=30.0)
[2023-12-03 14:08] LABS: Alanine Aminotransferase 21 U/L (14-59); Albumin Globulin Ratio 0.8; Albumin Level 3.4 g/dL (3.4-5.0); Alkaline Phosphatase 97 U/L (46-116); Anion Gap 6.4; Aspartate Amino Transferase 16 U/L (15-37); BUN Creatinine Ratio 17.9; Bilirubin Total 0.3 mg/dL (0.2-1.0); Calcium 9.9 mg/dL (8.5-10.1); Chloride 103 mmol/L (98-107); Cholesterol 178 mg/dL (<=200); Estimated GFR (African America >60 (>=60); Estimated GFR (Non-African Ame 58 (>=60); Globulin 4.3 g/dL; Glucose 162 mg/dL (74-106); HDL Cholesterol 88 mg/dL (40-60); Potassium 4.4 mmol/L (3.5-5.1); Sodium 136 mmol/L (136-145); Total Protein 7.7 g/dL (6.4-8.2); Triglycerides 42 mg/dL (<=150); VLDL CHOLESTEROL 8.4 mg/dL
[2023-12-03 14:11] LABS: Estimated Average Glucose 157 mg/dL; Glycohemoglobin A1C 7.1 % (4.5-6.2)
== END 2023-12-03 12:12 | disposition home or self-care (01) ==
LOC: LAB 12:13
PROVIDERS: PCP Internal Medicine; Visit Provider Internal Medicine
DX: E78.2 Mixed hyperlipidemia (principal); E11.42 Type 2 diabetes mellitus with diabetic polyneuropathy; I10 Essential (primary) hypertension; I50.32 Chronic diastolic (congestive) heart failure
CPT/HCPCS: 36415; 80053; 80061; 82043; 82570; 83036; 85025

== ENCOUNTER 2024-03-18 09:23 | Outpatient (OUT) | payer MEDICARE, SELFPAY ==
[2024-03-18 09:48] LABS: Basophils Absolute Auto 0.1 10^3/uL (0.0-0.1); Basophils Percent Auto 0.7 % (0.2-2.0); Eosinophils Absolute Auto 0.1 10^3/uL (0.0-0.7); Eosinophils Percent Auto 1.2 % (0.9-7.0); Hematocrit 33.4 % (36.0-48.0); Immature Granulocytes Abs Auto 0.02 10^3/uL (0.00-0.03); Immature Granulocytes Pct Auto 0.2 % (0.0-0.5); Lymphocytes Absolute Auto 2.7 10^3/uL (1.2-3.8); Lymphocytes Percent Auto 32.7 % (20.5-60.0); Mean Corpuscular HGB Conc 32.9 g/dL (29.9-35.2); Mean Corpuscular Hemoglobin 28.1 pg (26.7-34.0); Mean Corpuscular Volume 85.4 fL (81.0-99.0); Mean Platelet Volume 9.3 fL (9.5-13.5); Monocytes Absolute Auto 0.7 10^3/uL (0.3-0.8); Monocytes Percent Auto 7.9 % (1.7-12.0); Neutrophils Absolute Auto 4.7 10^3/uL (1.4-6.5); Neutrophils Percent Auto 57.3 % (43.0-75.0); Platelet Count 234 10^3/uL (150-450); Red Blood Count 3.91 10^6/uL (4.20-5.40); Red Cell Distribution Width 16.2 % (11.0-15.0); White Blood Count 8.2 10^3/uL (4.0-11.0)
[2024-03-18 10:05] LABS: Alanine Aminotransferase 19 U/L (14-59); Albumin Globulin Ratio 0.8; Albumin Level 3.2 g/dL (3.4-5.0); Alkaline Phosphatase 74 U/L (46-116); Aspartate Amino Transferase 16 U/L (15-37); BUN Creatinine Ratio 20.6; Bilirubin Total 0.2 mg/dL (0.2-1.0); Calcium 9.1 mg/dL (8.5-10.1); Carbon Dioxide 27.8 mmol/L (21.0-32.0); Chloride 104 mmol/L (98-107); Estimated GFR (African America >60 (>=60); Estimated GFR (Non-African Ame 56 (>=60); Globulin 4.1 g/dL; Glucose 143 mg/dL (74-106); Potassium 3.8 mmol/L (3.5-5.1); Sodium 137 mmol/L (136-145); Total Protein 7.3 g/dL (6.4-8.2)
[2024-03-18 10:19] LABS: Estimated Average Glucose 166 mg/dL; Glycohemoglobin A1C 7.4 % (4.5-6.2)
== END 2024-03-18 09:24 | disposition home or self-care (01) ==
LOC: LAB 09:26
DX: E11.42 Type 2 diabetes mellitus with diabetic polyneuropathy (principal); I10 Essential (primary) hypertension
CPT/HCPCS: 36415; 80053; 83036; 85025

== ENCOUNTER 2024-04-18 16:41 | Outpatient (OUT) | payer MEDICARE, SELFPAY ==
[2024-04-18 17:02] LABS: Basophils Absolute Auto 0.1 10^3/uL (0.0-0.1); Basophils Percent Auto 0.8 % (0.2-2.0); Eosinophils Absolute Auto 0.1 10^3/uL (0.0-0.7); Hematocrit 33.5 % (36.0-48.0); Hemoglobin 10.8 g/dL (12.0-16.0); Immature Granulocytes Abs Auto 0.01 10^3/uL (0.00-0.03); Immature Granulocytes Pct Auto 0.1 % (0.0-0.5); Lymphocytes Absolute Auto 2.3 10^3/uL (1.2-3.8); Lymphocytes Percent Auto 31.1 % (20.5-60.0); Mean Corpuscular HGB Conc 32.2 g/dL (29.9-35.2); Mean Corpuscular Hemoglobin 27.4 pg (26.7-34.0); Mean Platelet Volume 9.1 fL (9.5-13.5); Monocytes Absolute Auto 0.5 10^3/uL (0.3-0.8); Monocytes Percent Auto 7.4 % (1.7-12.0); Neutrophils Absolute Auto 4.4 10^3/uL (1.4-6.5); Neutrophils Percent Auto 59.6 % (43.0-75.0); Platelet Count 247 10^3/uL (150-450); Red Blood Count 3.94 10^6/uL (4.20-5.40); White Blood Count 7.3 10^3/uL (4.0-11.0)
[2024-04-18 17:21] LABS: Percent Iron Saturation 35.3 %
[2024-04-20 10:08] LABS: Vitamin B12 876 pg/mL (232-1245)
[2024-04-20 11:07] LABS: Transferrin 194 mg/dL (192-364)
== END 2024-04-18 16:42 | disposition home or self-care (01) ==
LOC: LAB 16:42
DX: D64.9 Anemia, unspecified (principal)
CPT/HCPCS: 36415; 82607; 82728; 83540; 83550; 84466; 85025

== ENCOUNTER 2024-11-25 09:42 | Outpatient (OUT) | payer MEDICARE, SELFPAY ==
--- OUTSIDE RECORDS SUMMARY | 2024-11-19 23:59 | XMS_ITS | Continuity of Care Document ---
Author Organization [facility] Address [address] [place] [address] [place] [address] Care Team Providers Care Stretching Machine Tender Frame Name Role Phone COLT FLORES Primary Care Physician [phone] Encounter FT_AMBFIN [id number] Date(s): 11/19/24 - 11/19/24 [facility] [address] [place], [place] [address] Encounter Diagnosis OAB (overactive bladder)(Discharge Diagnosis) - 11/19/24 Mixed incontinence(Discharge Diagnosis) - 11/19/24 Discharge Disposition: Home (Routine DC) Attending Physician: Coty Hopper PA-C Referring Physician: COLT FLORES CNP Encounter Type: Clinic Allergies, Adverse Reactions, Alerts Substance Criticality Severity Reaction Reaction Severity Status aspirin Nausea Active Assessment and Plan Future Appointments Appointment Date:02/25/2025 02:30:00 PM Scheduled Provider:Coty Hopper PA-C Location:[facility] Appointment Type:URO Office Visit Medications alendronate 70 mg Tab 70 mg = 1 tab(s), Oral, q7day, # 4 tab(s), Refills(s) 0 Start Date: 11/19/24 Status: Ordered Quantity: 4.0 Unit: tab(s) Repeat number: 1 aspirin 81 mg oral capsule mg cap(s), Oral, q24hr, Refills(s) 0 Start Date: 11/19/24 Status: Ordered Repeat number: 1 CARBAMAZEPINE 200MG TABLETS CARBAMAZEPINE 200MG TABLETS, TAKE 1 TABLET BY MOUTH EVERY MORNING AND 1 BEFORE BEDTIME, As Directed Start Date: 11/19/24 Status: Ordered Repeat number: 1 carvedilol 25 mg Tab 25 mg = 1 tab(s), Oral, BID, # 180 tab(s), Refills(s) 0 Start Date: 11/19/24 Status: Ordered Quantity: 180.0 Unit: tab(s) Repeat number: 1 cholecalciferol 50 mcg (2000 intl units) oral tablet, disintegrating mcg tab(s), Oral, Daily, Refills(s) 0 Start Date: 11/19/24 Status: Ordered Repeat number: 1 Co-Q10 30 mg oral capsule mg cap(s), Oral, TID, Refills(s) 0 Start Date: 11/19/24 Status: Ordered Repeat number: 1 fluticasone 93 mcg/inh nasal spray mcg, spray(s), BID, Refill(s) 0 Start Date: 11/19/24 Status: Ordered Repeat number: 1 furosemide 40 mg Tab 40 mg = 1 tab(s), Oral, Daily, # 90 tab(s), Refills(s) 0 Start Date: 11/19/24 Status: Ordered Quantity: 90.0 Unit: tab(s) Repeat number: 1 gabapentin 300 mg Cap 300 mg = 1 cap(s), Oral, BID, # 60 cap(s), Refills(s) 0 Start Date: 11/19/24 Status: Ordered Quantity: 60.0 Unit: cap(s) Repeat number: 1 glipiZIDE 5 mg Tab 5 mg = 1 tab(s), Oral, Daily, # 90 tab(s), Refills(s) 0 Start Date: 11/19/24 Status: Ordered Quantity: 90.0 Unit: tab(s) Repeat number: 1 guaifenesin 1200 mg ER Tab mg, Oral, q12hr, Refills(s) 0 Start Date: 11/19/24 Status: Ordered Repeat number: 1 Jardiance 10 mg oral tablet mg tab(s), Oral, qAM, Refills(s) 0 Start Date: 11/19/24 Status: Ordered Repeat number: 1 latanoprost Opth 0.005% Hien 1 drop(s), OPTH, Once a day (at bedtime), 2.5 mL, Refill(s) 0 Start Date: 11/19/24 Status: Ordered Quantity: 2.5 Unit: mL Repeat number: 1 losartan 50 mg Tab 50 mg = 1 tab(s), Oral, Daily, # 90 tab(s), Refills(s) 0 Start Date: 11/19/24 Status: Ordered Quantity: 90.0 Unit: tab(s) Repeat number: 1 metformin 500 mg ER Tab 500 mg = 1 tab(s), Oral, Daily, # 90 tab(s), Refills(s) 0 Start Date: 11/19/24 Status: Ordered Quantity: 90.0 Unit: tab(s) Repeat number: 1 Multi Vitamins oral tablet 1 tab(s), Oral, Daily, 90 tab(s), Refill(s) 0 Start Date: 11/19/24 Status: Ordered Quantity: 90.0 Unit: tab(s) Repeat number: 1 Myrbetriq 25 mg oral tablet, extended release 25 mg = 1 tab(s), Oral, Daily, # 30 tab(s), Refills(s) 3, Pharmacy: [id number], 162, cm, 11/19/24 13:40:00 EDT, Height/Length Dosing Start Date: 11/19/24 Status: Ordered Quantity: 30.0 Unit: tab(s) Repeat number: 4 Indications: Overactive bladder; Mixed incontinence; ONE TOUCH VERIO TEST ST(NEW)100S ONE TOUCH VERIO TEST ST(NEW)100S, TEST ONCE DAILY, As Directed Start Date: 11/19/24 Status: Ordered Repeat number: 1 Oysco 500 with D 500 mg-200 intl units oral tablet 1 tab(s), TAKE 1 TABLET BY MOUTH EVERY MORNING AND 1 BEFORE BEDTIME Start Date: 11/19/24 Status: Ordered Repeat number: 1 timolol Opth 0.5% Hien 15 mL Refill(s) 0 Start Date: 11/19/24 Status: Ordered Repeat number: 1 traMADOL 50 mg Tab 1-2 tabs, Oral, q6hr, PRN Pain, Refills(s) 0 Start Date: 11/19/24 Status: Ordered Repeat number: 1 Problem List Condition Confirmation Course Effective Dates Status H ealth Status Informant Benign essential HTN Confirmed Active Acute glaucoma Confirmed Active Mixed incontinence Confirmed Active OAB (overactive bladder) Confirmed Active 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 Procedures Procedure Date Related Diagnosis Body Site Status Appendectomy Completed Breast Completed Cataract Completed Colonoscopy Completed Hernia Completed Hysterectomy Completed Social History Social History Type Response Smoking Status Former smoker, quit more than 30 days ago;Never; Type: Cigarettes; Smoking Cessation Yes entered on: 11/19/24 Sex Female Sex Representation Female (finding) Hospital Discharge Instructions Patient Education 11/19/2024 14:30:51 Urinary Incontinence Urinary Incontinence Urinary incontinence refers to a condition in which a person is unable to control where and when topass urine. A person with this condition will urinate involuntarily. This means that the person urinates when he or she does not mean to. What are the causes? This condition may be caused by: ??? Medicines. ??? Infections. ??? Constipation. ??? Overactive bladder muscles. ??? Weak bladder muscles. ??? Weak pelvic floor muscles. These muscles provide support for the bladder, intestine, and, in women, the uterus. ??? Enlarged prostate in men. The prostate is a gland near the bladder. When it gets too big, it can pinch the urethra. With the urethra blocked, the bladder can weaken and lose the ability to empty properly. ??? Surgery. ??? Emotional factors, such as anxiety, stress, or post-traumatic stress disorder (PTSD). ??? Spinal cord injury, nerve injury, or other neurological conditions. ??? Pelvic organ prolapse. This happens in women when organs move out of place and into the vagina.This movement can prevent the bladder and urethra from working properly. What increases the risk? The following factors may make you more likely to develop this condition: ??? Age. The older you are, the higher the risk. ??? Obesity. ??? Being physically inactive. ??? and childbirth. ??? Menopause. ??? Diseases that affect the nerves or spinal cord. ??? Long-term, or chronic, coughing. This can increase pressure on the bladder and pelvic floor muscles. What are the signs or symptoms? Symptoms may vary depending on the type of urinary incontinence you have. They include: ??? A sudden urge to urinate, and passing urine involuntarily before you can get to a bathroom (urge incontinence). ??? Suddenly passing urine when doing activities that force urine to pass, such as coughing, laughing, exercising, or sneezing (stress incontinence). ??? Needing to urinate often but urinating only a small amount, or constantly dribbling urine (overflow incontinence). ??? Urinating because you cannot get to the bathroom in time due to a physical disability, such as arthritis or injury, or due to a communication or thinking problem, such as Alzheimer's disease (functional incontinence). How is this diagnosed? This condition may be diagnosed based on: ??? Your medical history. ??? A physical exam. ??? Tests, such as: ??? Urine tests. ??? X-rays of your kidney and bladder. ??? Ultrasound. ??? CT scan. ??? Cystoscopy. In this procedure, a health care provider inserts a tube with a light and camera (cystoscope) through the urethra and into the bladder to check for problems. ??? Urodynamic testing. These tests assess how well the bladder, urethra, and sphincter can store and release urine. There are different types of urodynamic tests, and they vary depending on what thetest is measuring. To help diagnose your condition, your health care provider may recommend that you keep a log of when you urinate and how much you urinate. How is this treated? Treatment for this condition depends on the type of incontinence that you have and its cause. Treatment may include: ??? Lifestyle changes, such as: ??? Quitting smoking. ??? Maintaining a healthy weight. ??? Staying active. Try to get 150 minutes of moderate-intensity exercise every week. Ask your health care provider which activities are safe for you. ??? Eating a healthy diet. ??? Avoid high-fat foods, like fried foods. ??? Avoid refined carbohydrates like white bread and white rice. ??? Limit how much alcohol and caffeine you drink. ??? Increase your fiber intake. Healthy sources of fiber include beans, whole grains, and fresh fruits and vegetables. ??? Behavioral changes, such as: ??? Pelvic floor muscle exercises. ??? Bladder training, such as lengthening the amount of time between bathroom breaks, or using the bathroom at regular intervals. ??? Using techniques to suppress bladder urges. This can include distraction techniques or controlled breathing exercises. ??? Medicines, such as: ??? Medicines to relax the bladder muscles and prevent bladder spasms. ??? Medicines to help slow or prevent the growth of a man's prostate. ??? Botox injections. These can help relax the bladder muscles. ??? Treatments, such as: ??? Using pulses of electricity to help change bladder reflexes (electrical nerve stimulation). ??? For women, using a chief medical physicist to prevent urine leaks. This is a small, tampon-like, disposable device that is inserted into the urethra. ??? Injecting collagen or carbon beads (bulking agents) into the urinary sphincter. These can help thicken tissue and close the bladder opening. ??? Surgery. Follow these instructions at home: Lifestyle ??? Limit alcohol and caffeine. These can fill your bladder quickly and irritate it. ??? Keep yourself clean to help prevent odors and skin damage. Ask your health care provider about special skin creams and cleansers that can protect the skin from urine. ??? Consider wearing pads or adult diapers. Make sure to change them regularly, and always change them right after experiencing incontinence. General instructions ??? Take ygws-pjp-[id number] and prescription medicines only as told by your health care provider. ??? Use the bathroom about every 3???4 hours, even if you do not feel the need to urinate. Try to empty your bladder completely every time. After urinating, wait a minute. Then try to urinate again. ??? Make sure you are in a relaxed position while urinating. ??? If your incontinence is caused by nerve problems, keep a log of the medicines you take and the times you go to the bathroom. ??? Keep all follow-up visits. This is important. Where to find more information ??? National [place] of Diabetes and Digestive and Kidney Diseases: www.niddk.nih.gov ??? [place] [facility] [employer]: www.urologyhealth.org Contact a health care provider if: ??? You have pain that gets worse. ??? Your incontinence gets worse. Get help right away if: ??? You have a fever or chills. ??? You are unable to urinate. ??? You have redness in your groin area or down your legs. Summary ??? Urinary incontinence refers to a condition in which a person is unable to control where and when to pass urine. ??? This condition may be caused by medicines, infection, weak bladder muscles, weak pelvic floor muscles, enlargement of the prostate (in men), or surgery. ??? Factors such as older age, obesity, and childbirth, menopause, neurological diseases,and chronic coughing may increase your risk for developing this condition. ??? Types of urinary incontinence include urge incontinence, stress incontinence, overflow incontinence, and functional incontinence. ??? This condition is usually treated first with lifestyle and behavioral changes, such as quittingsmoking, eating a healthier diet, and doing regular pelvic floor exercises. Other treatment optionsinclude medicines, bulking agents, medical devices, electrical nerve stimulation, or surgery. This information is not intended to replace advice given to you by your health care provider. Make sure you discuss any questions you have with your health care provider. Document Revised: 01/07/2021 Document Reviewed: 01/07/2021 [employer] Patient Education ?? 2023 [email or web address]. 11/19/2024 14:30:50 Overactive Bladder, Adult Overactive Bladder, Adult Overactive bladder is a condition in which a person has a sudden and frequent need to urinate. A person might also leak urine if he or she cannot get to the bathroom fast enough (urinary incontinence). Sometimes, symptoms can interfere with work or social activities. What are the causes? Overactive bladder is associated with poor nerve signals between your bladder and your brain. Your bladder may get the signal to empty before it is full. You may also have very sensitive muscles thatmake your bladder squeeze too soon. This condition may also be caused by other factors, such as: ??? Medical conditions: ??? Urinary tract infection. ??? Infection of nearby tissues. ??? Prostate enlargement. ??? Bladder stones, inflammation, or tumors. ??? Diabetes. ??? Muscle or nerve weakness, especially from these conditions: ??? A spinal cord injury. ??? Stroke. ??? Multiple sclerosis. ??? Parkinson's disease. ??? Other causes: ??? Surgery on the uterus or urethra. ??? Drinking too much caffeine or alcohol. ??? Certain medicines, especially those that eliminate extra fluid in the body (diuretics). ??? Constipation. What increases the risk? You may be at greater risk for overactive bladder if you: ??? Are an older adult. ??? Smoke. ??? Are going through menopause. ??? Have prostate problems. ??? Have a neurological disease, such as stroke, dementia, Parkinson's disease, or multiple sclerosis (MS). ??? Eat or drink alcohol, spicy food, caffeine, and other things that irritate the bladder. ??? Are overweight or obese. What are the signs or symptoms? Symptoms of this condition include a sudden, strong urge to urinate. Other symptoms include: ??? Leaking urine. ??? Urinating 8 or more times a day. ??? Waking up to urinate 2 or more times overnight. How is this diagnosed? This condition may be diagnosed based on: ??? Your symptoms and medical history. ??? A physical exam. ??? Blood or urine tests to check for possible causes, such as infection. You may also need to see a health care provider who specializes in urinary tract problems. This is called a urologist. How is this treated? Treatment for overactive bladder depends on the cause of your condition and whether it is mild or severe. Treatment may include: ??? Bladder training, such as: ??? Learning to control the urge to urinate by following a schedule to urinate at regular intervals. ??? Doing Kegel exercises to strengthen the pelvic floor muscles that support your bladder. ??? Special devices, such as: ??? Biofeedback. This uses sensors to help you become aware of your body's signals. ??? Electrical stimulation. This uses electrodes placed inside the body (implanted) or outside the body. These electrodes send gentle pulses of electricity to strengthen the nerves or muscles that control the bladder. ??? Women may use a plastic device, called a pessary, that fits into the vagina and supports the bladder. ??? Medicines, such as: ??? Antibiotics to treat bladder infection. ??? Antispasmodics to stop the bladder from releasing urine at the wrong time. ??? Tricyclic antidepressants to relax bladder muscles. ??? Injections of botulinum toxin type A directly into the bladder tissue to relax bladder muscles. ??? Surgery, such as: ??? A device may be implanted to help manage the nerve signals that control urination. ??? An electrode may be implanted to stimulate electrical signals in the bladder. ??? A procedure may be done to change the shape of the bladder. This is done only in very severe cases. Follow these instructions at home: Eating and drinking ??? Make diet or lifestyle changes recommended by your health care provider. These may include: ??? Drinking fluids throughout the day and not only with meals. ??? Cutting down on caffeine or alcohol. ??? Eating a healthy and balanced diet to prevent constipation. This may include: ??? Choosing foods that are high in fiber, such as beans, whole grains, and fresh fruits and vegetables. ??? Limiting foods that are high in fat and processed sugars, such as fried and sweet foods. Lifestyle ??? Lose weight if needed. ??? Do not use any products that contain nicotine or tobacco. These include cigarettes, chewing tobacco, and vaping devices, such as e-cigarettes. If you need help quitting, ask your health care provider. General instructions ??? Take rpcb-fyw-ptllmtc and prescription medicines only as told by your health care provider. ??? If you were prescribed an antibiotic medicine, take it as told by your health care provider. Donot stop taking the antibiotic even if you start to feel better. ??? Use any implants or pessary as told by your health care provider. ??? If needed, wear pads to absorb urine leakage. ??? Keep a log to track how much and when you drink, and when you need to urinate. This will help your health care provider monitor your condition. ??? Keep all follow-up visits. This is important. Contact a health care provider if: ??? You have a fever or chills. ??? Your symptoms do not get better with treatment. ??? Your pain and discomfort get worse. ??? You have more frequent urges to urinate. Get help right away if: ??? You are not able to control your bladder. Summary ??? Overactive bladder refers to a condition in which a person has a sudden and frequent need to urinate. ??? Several conditions may lead to an overactive bladder. ??? Treatment for overactive bladder depends on the cause and severity of your condition. ??? Making lifestyle changes, doing Kegel exercises, keeping a log, and taking medicines can help with this condition. This information is not intended to replace advice given to you by your health care provider. Make sure you discuss any questions you have with your health care provider. Document Revised: 02/21/2021 Document Reviewed: 02/21/2021 [employer] Patient Education ?? 2023 [employer] Follow Up Care 11/07/2024 13:37:20 With:Coty Hopper PA-C, GERA Address: When:Within 3 Month(s) Comments:w/ PVR Patient Care team information Care Team Personnel Name: COLT FLORES CNP Position: FT Physician Member Role: Primary Care Physician Address: [address] [place] [address] Telecom: Care Team Related Persons Name: DIONNE MEDRANO Name: Sonja Ackerman Insurance Providers Guarantor name: Health Plan Information #: 1 Payer: NA Payer Identifier: [id number] Member Number: [id number] Group Number: [id number] Subscriber Identifier: [id number] Relationship to Subscriber: Self Coverage Type: MEDICARE Coverage Verification Date: 24 Telecom: NA Address:
--- OUTSIDE RECORDS SUMMARY | 2024-11-25 09:48 | XMS_ITS | Encounter Summary ---
Author Organization [facility] Address [address] [place] [address] Care Team Providers Care Trade Clerk Name Role Phone Shaikh DI Mendez Primary Care Provider [phone] Shaikh DI Mendez Unavailable [phone] Shaikh DI Mendez Primary Care Provider [phone] Ciaran Hardin MD Primary Care Provider [phone] Donita Valle NP Unavailable [phone] Reason for Visit * Reason Comments Med Refill Encounter Details Date Type Department Care Team (Late st Contact Info) Description 05/16/2023 [facility] [address] [place] [address] Shaikh Mendez MD [address] [place] [address] Chronic heart failure with preserved ejection fraction (CMS/HCC) (Primary Dx) Social History Tobacco Use Types Packs/Day Years Used Date Smoking Tobacco: Former Cigarettes Smokeless Tobacco: Never Comments:Quit smoking 20 yea rs ago Alcohol Use Standard Drinks/Week Comments Never 0 (1 standard drink = 0.6 oz pur e alcohol) Caffeine intake: none Comments Unknown Sex and Gender Information Value Date Recorded Sex Assigned at Not on file Legal Sex Female 9:28 PM EDT Gender Identity Not on file Sexual Orientation Not on file documented as of this encounter Miscellaneous Notes * Telephone Encounter - Shaikh Andrea MD - 05/17/2023 10:07 AM EST Approving, but needs appt for additional refills. documented in this encounter Plan of Treatment Upcoming Encounters Date Type Department Care Team (Late st Contact Info) Description 11/27/2024 1:20 PM EDT Office Visit [facility] [address] [place] [address] Jeannine Aldana NP [address] [place] [address] documented as of this encounter Visit Diagnoses Diagnosis Chronic heart failure with preserved ejection fraction (CMS/HCC)- Primary documented in this encounter Care Teams Trade Clerk Relationship Specialty Start Date End Date Shaikh Mendez MD PCP - General Internal Medicine 01/22/23 12/02/23 Shaikh Mendez MD [address] [place] [address] PCP - [employer] 07/19/23 10/15/24 Shaikh Mendez MD [address] [place] [address] PCP - General Internal Medicine 12/03/23 01/23/24 Ciaran Hardin MD [address] [place] [address] PCP - General Family Medicine 01/24/24 Donita Valle NP [address] [place] [address] Nurse Practitioner Family Medicine 01/24/24 documented as of this encounter
--- OUTSIDE RECORDS SUMMARY | 2024-11-25 09:48 | XMS_ITS | Encounter Summary ---
Author Organization [facility] Address [address] [place] [address] Care Team Providers Care Snaker Name Role Phone Ciaran Hardin MD Primary Care Provider [phone] Donita Valle PAID SEARCH MARKETING ANALYST Unavailable [phone] Reason for Visit * Reason Onset Date Comments Med Refill 11/19/2024 Encounter Details Date Type Department Care Team (Late st Contact Info) Description 11/19/2024 [facility] [address] [place] [address] Ciaran Hardin MD [address] [place] [address] Essential hypertension (CMS/HCC) Social History Tobacco Use Types Packs/Day Years Used Date Smoking Tobacco: Former Cigarettes Q uit: 1997 Passive Smoke Exposure: Past Smokeless Tobacco: Never Comments:Quit smoking 20 yea rs ago Alcohol Use Standard Drinks/Week Comments Never 0 (1 standard drink = 0.6 oz pur e alcohol) Caffeine intake: none Humiliation, Afraid, Rape, and Kick questionnair e Answer Date Recorded Within the last year, have y ou been afraid of your partner or ex-partner? No 05/22/2023 Within the last year, have y ou been humiliated or emotionally abused in other ways by your partner or ex-partner? No Within the last year, have y ou been kicked, hit, slapped, or otherwise physically hurt by your partner or ex-partner? No 05/22/2023 Within the last year, have y ou been raped or forced to have any kind of sexual activity by your partner or ex-partner? No 05/22/2023 Social Connection and Isolat ion Panel [NHANES] Answer Date Recorded In a typical week, how many times do you talk on the phone with family, friends, or neighbors? More than three times a week 05/22/2023 How often do you get togethe r with friends or relatives? More than three times a week 05/22/2023 How often do you attend chur or holiness services? More than 4 times per year 05/22/2023 Do you belong to any clubs o r organizations such as taoism groups, unions, fraternal or athletic groups, or school groups? Yes 05/22/2023 How often do you attend meet ings of the clubs or organizations you belong to? More than 4 times per year 05/22/2023 Are you , , di vorced, , never , or living with a partner? 05/22/2023 AUDIT-C Answer Date Recorded Frequency of Alcohol Consumption Not on file 05/22/2023 Q2: How many drinks containi ng alcohol do you have on a typical day when you are drinking? Patient does not drink Q3: How often do you have si x or more drinks on one occasion? Never 05/22/2023 Overall Financial Resource Strain (CARDIA) Answe r Date Recorded How hard is it for you to pa y for the very basics like food, housing, medical care, and heating? Somewhat hard 05/22/2023 PHQ-2 Answer Date Recorded Patient Health Questionnaire-2 Score 0 03/03/2024 [facility] Occupat ionga Health - Occupational Stress Questionnaire Answer Date Recorded Do you feel stress - tense, restless, nervous, or anxious, or unable to sleep at night because your mind is troubled all the time - these days? Not at all 05/22/2023 Exercise Vital Sign Answer Date Recorde d On average, how many days pe r week do you engage in moderate to strenuous exercise (like a brisk walk)? 0 days 05/22/2023 On average, how many minutes do you engage in exercise at this level? 0 min 05/22/2023 Hunger Vital Sign Answer Date Recorded Within the past 12 months, y ou worried that your food would run out before you got the money to buy more. Never true 05/22/20 23 Within the past 12 months, t he food you bought just didn't last and you didn't have money to get more. Never true 05/22/2023 PRAPARE - Transportation Answer Date Re corded In the past 12 months, has l ack of transportation kept you from medical appointments or from getting medications? No 10/2022 In the past 12 months, has l ack of transportation kept you from meetings, work, or from getting things needed for daily living? No 05/22/2023 Comments No Sex and Gender Information Value Date Recorded Sex Assigned at Not on file Legal Sex Female 9:28 PM EDT Gender Identity Not on file Sexual Orientation Not on file documented as of this encounter Plan of Treatment Upcoming Encounters Date Type Department Care Team (Late st Contact Info) Description 11/27/2024 1:20 PM EDT Office Visit [facility] [address] [place] [address] Jeannine Aldana NP [address] [place] [address] documented as of this encounter Visit Diagnoses Diagnosis Essential hypertension (CMS/HCC) Unspecified essential hypertension documented in this encounter Additional Health Concerns Assessment Noted Time PHQ-9 Depression Total Score: 1 05/22/20 23 2:41 PM EST documented as of this encounter Care Teams Snaker Relationship Specialty Start Date End Date Ciaran Hardin MD [address] [place] [address] PCP - General Family Medicine 01/24/24 Donita Valle NP [address] [address] Nurse Practitioner Family Medicine 01/24/24 documented as of this encounter
--- OUTSIDE RECORDS SUMMARY | 2024-11-25 09:48 | XMS_ITS | Encounter Summary ---
Author Organization [facility] Address [address] [place] [address] Care Team Providers Care Cold Header Name Role Phone Shaikh DI Mendez Primary Care Provider [phone] Shaikh DI Mendez Unavailable [phone] Shaikh DI Mendez Primary Care Provider [phone] Ciaran Hardin MD Primary Care Provider [phone] Donita Valle NP Unavailable [phone] Reason for Visit * Reason Comments Med Refill Encounter Details Date Type Department Care Team (Late st Contact Info) Description 05/29/2023 [facility] [address] [place] [address] Shaikh Mendez MD [address] [place] [address] Chronic pain syndrome (Primary Dx) Social History Tobacco Use Types Packs/Day Years Used Date Smoking Tobacco: Former Cigarettes Q uit: 1997 Smokeless Tobacco: Never Comments:Quit smoking 20 yea [...] How often do you attend chur or hinduism services? More than 4 times per year 05/22/2023 Do you belong to any clubs o r organizations such as amish groups, unions, fraternal or athletic groups, or [...] Date Recorded Patient Health Questionnaire-2 Score 0 05/22/2023 [facility] [place] of Occupat ional Health - Occupational Stress Questionnaire Answer Date [...] money to buy more. Never true 05/22/20 Within the past 12 months, t he [...] needed for daily living? No 05/22/2023 Comments Unknown Sex and Gender Information Value Date Recorded Sex Assigned at Not on file Legal Sex Female 9:28 PM EDT Gender Identity Not on file Sexual Orientation Not on file documented as of this encounter Miscellaneous Notes * Telephone Encounter - Shaikh Andrea MD - 05/29/2023 1:12 PM EST Approving, but needs appt for additional refills. documented in this encounter Plan of Treatment Upcoming Encounters Date Type Department Care Team (Late st Contact Info) Description 11/27/2024 1:20 PM EDT [facility] [address] [place] [address] Jeannine Aldana NP [address] [place] [address] documented as of this encounter Visit Diagnoses Diagnosis Chronic pain syndrome- Primary documented in this encounter Additional Health Concerns Assessment Noted Time PHQ-9 Depression Total Score: 1 05/22/20 2:41 PM EST documented as of this encounter Care Teams Cold Header Relationship Specialty Start Date End Date Shaikh Mendez MD PCP - General Internal Medicine 01/22/23 12/02/23 Shaikh Mendez MD [address] [place] [address] PCP - [employer] 07/19/23 10/15/24 Shaikh Mendez MD [address] [place] [address] PCP - General Internal Medicine 12/03/23 01/23/24 Ciaran Hardin MD [address] [place] [address] PCP - General Family Medicine 01/24/24 Donita Valle NP [address] [place] [address] Nurse Practitioner Family Medicine 01/24/24 documented as of this encounter
--- OUTSIDE RECORDS SUMMARY | 2024-11-25 09:48 | XMS_ITS | Encounter Summary ---
Author Organization [facility] Address [address] [place] [address] Care Team Providers Care Safety And Occupational Health Manager Name Role Phone Shaikh DI Mendez Primary Care Provider [phone] Shaikh DI Mendez Unavailable [phone] Shaikh DI Mendez Primary Care Provider [phone] Ciraan Hardin MD Primary Care Provider [phone] Donita Valle NP Unavailable [phone] Reason for Visit * Reason Comments Med Refill Encounter Details Date Type Department Care Team (Late st Contact Info) Description 09/07/2023 [facility] [address] [place] [address] Shaikh Mendez MD [address] [place] [address] Age-related osteoporosis without current pathological fracture (CMS/HCC) (Primary Dx); Seizure disorder (CMS/HCC) Social History Tobacco Use Types Packs/Day [...] How often do you attend chur or anglican services? More than 4 times per year 05/22/2023 Do you belong to any clubs o r organizations such as mandaen groups, unions, fraternal or athletic groups, or [...] Recorded Patient Health Questionnaire-2 Score 0 05/22/2023 [facility] [place] of Occupat ional Health - Occupational Stress [...] Telephone Encounter - Shaikh Andrea MD - 09/10/2023 9:13 AM EDT Approving, but needs appt for additional refills. documented in this encounter Plan of Treatment Upcoming Encounters Date Type Department Care Team (Late st Contact Info) Description 11/27/2024 1:20 PM EDT [facility] Visit [facility] [address] [place] [address] Jeannine Aldana NP [address] [place] [address] documented as of this encounter Visit Diagnoses Diagnosis Age-related osteoporosis without current pathological fracture (CMS/HCC)- Primary Seizure disorder (CMS/HCC) Unspecified epilepsy without mention of intractable epilepsy documented in this encounter Additional Health Concerns Assessment Noted Time PHQ-9 Depression Total Score: 1 05/22/20 23 2:41 PM EST documented as of this encounter Care Teams Safety And Occupational Health Manager Relationship Specialty Start Date End Date Shaikh Mendez MD PCP - General Internal Medicine 01/22/23 12/02/23 Shaikh Mendez MD [address] [place] [address] PCP - [employer] 07/19/23 10/15/24 Shaikh Mendez MD [address] [place] [address] PCP - General Internal Medicine 12/03/23 01/23/24 Ciaran Hardin MD [address] [place] [address] PCP - General Family Medicine 01/24/24 Donita Valle NP [address] [place] [address] Nurse Practitioner Family Medicine 01/24/24 documented as of this encounter
--- OUTSIDE RECORDS SUMMARY | 2024-11-25 09:48 | XMS_ITS | Encounter Summary ---
Author Organization [facility] Address [address] [place] [address] Care Team Providers Care Personal Trainer Name Role Phone Ciaran Hardin MD Primary Care Provider [phone] Donita Valle NP Unavailable [phone] Reason for Visit * Reason Onset Date Comments Med Refill 11/20/2024 Encounter Details Date Type Department Care Team (Late st Contact Info) Description 11/20/2024 Refill [facility] [address] [place] [address] Jeannine Aldana NP [address] [place] [address] Type 2 diabetes mellitus with diabetic polyneuropathy, without long-term current use of insulin (CMS/HCC); Seizure disorder ([facility]) Social History Tobacco Use Types Packs/Day Years [...] any clubs o r organizations such as pentecostal groups, unions, fraternal or athletic groups, or [...] Recorded Patient Health Questionnaire-2 Score 0 03/03/2024 [facility] of Occupat ional Health - Occupational Stress [...] 1:20 PM EDT Office Visit [facility] [address] [place] [address] Jeannine Aldana NP [address] [place] [address] documented as of this encounter Visit Diagnoses Diagnosis Type 2 diabetes mellitus with diabetic polyneuropathy, without long-term current use of insulin ([facility]) Seizure disorder ([facility]) Unspecified epilepsy without mention of intractable epilepsy documented in this encounter Additional Health Concerns Assessment Noted Time PHQ-9 Depression Total Score: 1 05/22/20 2:41 PM EST documented as of this encounter Care Teams Personal Trainer Relationship Specialty Start Date End Date Ciaran Hardin MD [address] [place] [address] PCP - General Family Medicine 01/24/24 Donita Valle NP [address] [place] [address] Nurse Practitioner Family Medicine 01/24/24 documented as of this encounter
--- OUTSIDE RECORDS SUMMARY | 2024-11-25 09:48 | XMS_ITS | Encounter Summary ---
Author Organization [facility] Address [address] [place] [address] Care Team Providers Care Vp Design Name Role Phone Shaikh DI Mendez Primary Care Provider [phone] Shaikh DI Mendez Unavailable [phone] Shaikh DI Mendez Primary Care Provider [phone] Ciaran Hardin MD Primary Care Provider [phone] Donita Valle NP Unavailable Reason for Visit * Reason Comments Med Refill Encounter Details Date Type Department Care Team (Late st Contact Info) Description 09/03/2023 [facility] [address] [place] [address] Shaikh Mendez MD [address] [place] [address] Seizure disorder (CMS/HCC) (Primary Dx); Chronic pain syndrome Social History Tobacco Use Types Packs/Day Years [...] How often do you attend chur or episcopalian services? More than 4 times per year 05/22/2023 Do you belong to any clubs o r organizations such as hindu groups, unions, fraternal or athletic groups, or [...] Recorded Patient Health Questionnaire-2 Score 0 05/22/2023 [facility] of Occupat ional Health - Occupational Stress [...] Telephone Encounter - Shaikh Andrea MD - 09/04/2023 12:30 PM EDT Approving, but needs appt for additional refills. documented in this encounter Plan of Treatment Upcoming Encounters Date Type Department Care Team (Late st Contact Info) Description 11/27/2024 1:20 PM EDT Office Visit [facility] [address] [place] [address] Jeannine Aldana NP [address] [place] [address] documented as of this encounter Visit Diagnoses Diagnosis Seizure disorder (CMS/HCC)- Primary Unspecified epilepsy without mention of intractable epilepsy Chronic pain syndrome documented in this encounter Additional Health Concerns Assessment Noted Time PHQ-9 Depression Total Score: 1 05/22/20 2:41 PM EST documented as of this encounter Care Teams Vp Design Relationship Specialty Start Date End Date Shaikh Mendez MD PCP - General Internal Medicine 01/22/23 12/02/23 Shaikh Mendez MD [address] [place] [address] PCP - [employer] 07/19/23 10/15/24 Shaikh Mendez MD [address] [place] [address] PCP - General Internal Medicine 12/03/23 01/23/24 Ciaran Hardin MD [address] [place] [address] PCP - General Family Medicine 01/24/24 Donita Valle NP [address] [place] [address] Nurse Practitioner Family Medicine 01/24/24 documented as of this encounter
--- OUTSIDE RECORDS SUMMARY | 2024-11-25 09:48 | XMS_ITS | Referral Summary ---
Author Organization [facility] Address [address] [place] [address] Care Team Providers Care Wheat Washer Name Role Phone Unavailable Primary Care Provider Unavailabl e Social History Tobacco Use Types Packs/Day Years Used Date Smoking Tobacco: Never Assessed Sex and Gender Information Value Date Recorded Sex Assigned at Not on file Gender Identity Not on file Sexual Orientation Not on file Last Filed Vital Signs Vital Sign Reading Time Taken Comments Blood Pressure 122/76 08/26/2018 1:03 PM EDT Pulse 74 08/26/2018 1:02 PM EDT Temperature - - Respiratory Rate - - Oxygen Saturation 97% 08/26/2018 1:02 PM EDT Inhaled Oxygen Concentration - - Weight 96.2 kg (212 lb) 08/26/2018 1:02 PM EDT Height 165.1 cm (5' 5 ) 08/26/2018 1:02 PM EDT Body Mass Index 35.28 08/26/2018 1:02 PM EDT Plan of Treatment Not on file
--- OUTSIDE RECORDS SUMMARY | 2024-11-25 09:48 | XMS_ITS | Encounter Summary ---
Author Organization [facility] Address [address] [place] [address] Care Team Providers Care Blind Slat Stapling Machine Operator Name Role Phone Shaikh DI Mendez Primary Care Provider [phone] Shaikh DI Mendez Unavailable [phone] Shaikh DI Mendez Primary Care Provider [phone] Ciaran Hardin MD Primary Care Provider [phone] Donita Valle NP Unavailable [phone] Reason for Visit * Reason Comments Med Refill Encounter Details Date Type Department Care Team (Late st Contact Info) Description 05/31/2023 [facility] [address] [place] [address] Shaikh Mendez MD [address] [place] [address] Type 2 diabetes mellitus with diabetic polyneuropathy, without long-term current use of insulin ([facility]) (Primary Dx) Social History Tobacco Use Types [...] week 05/22/2023 How often do you attend [facility] or faith services? More than 4 times per year 05/22/2023 Do you belong to any clubs o r organizations such as episcopal groups, unions, fraternal or athletic groups, or [...] Recorded Patient Health Questionnaire-2 Score 0 05/22/2023 [facility] [place] of Occupat ional Health - Occupational Stress [...] Telephone Encounter - Shaikh Andrea MD - 05/31/2023 1:37 PM EST Approving, but needs appt for additional refills. documented in this encounter Plan of Treatment Upcoming Encounters Date Type Department Care Team (Late st Contact Info) Description 11/27/2024 1:20 PM EDT Office Visit [facility] [address] [place] [address] Jeannine Aldana NP [address] [place] [address] documented as of this encounter Visit Diagnoses Diagnosis Type 2 diabetes mellitus with diabetic polyneuropathy, without long-term current use of insulin ([facility])- Primary documented in this encounter Additional Health Concerns Assessment Noted Time PHQ-9 Depression Total Score: 1 05/22/20 23 2:41 PM EST documented as of this encounter Care Teams Blind Slat Stapling Machine Operator Relationship Specialty Start Date End Date Shaikh Mendez MD PCP - General Internal Medicine 01/22/23 12/02/23 Shaikh Mendez MD [address] [place] [address] PCP - [employer] 07/19/23 10/15/24 Shaikh Mendez MD [address] [place] [address] PCP - General Internal Medicine 12/03/23 01/23/24 Ciaran Hardin MD [address] [place] [address] PCP - General Family Medicine 01/24/24 Donita Valle NP [address] [place] [address] Nurse Practitioner Family Medicine 01/24/24 documented as of this encounter
--- OUTSIDE RECORDS SUMMARY | 2024-11-25 09:49 | XMS_ITS | Clinical Summary ---
Author Organization [facility] Address [id number] [address] [place] [address] Care Team Providers Care Manager Pool Name Role Phone Shaikh DI Mendez Primary Care Provider [phone] Allergies Active Allergy Reactions Criticality Noted Date Comments Aspirin Nausea Medium 08/10/2022 Patient states baby aspirin does not bother her. Medications spironolactone (ALDACTONE) 25 mg tabletIndications: edema,unknown Take 25 mg by mouth daily Indications: Edema, unknown. Active carBAMazepine (TEGretol) 200 mg tabletIndications: unknown Take 1 tablet (200 mg total) by mouth in the morning and 1 tablet (200 mg total) before bedtime. Indications: unknown. Active amLODIPine (NORVASC) 10 mg tabletIndications: hypertension Take 1 tablet (10 mg total) by mouth in the morning. Indications: high blood pressure. Active losartan (COZAAR) 50 mg tabletIndications: hypertension Take 1 tablet (50 mg total) by mouth in the morning and 1 tablet (50 mg total) before bedtime. Indications: high blood pressure. Active metFORMIN (GLUCOPHAGE) 500 mg tabletIndications: type 2 diabetes mellitus Take 1 tablet (500 mg total) by mouth daily with breakfast Indications: type 2 diabetes mellitus. Active insulin NPH and regular human (NovoLIN 70-30) 100 unit/mL (70-30) injectionIndicatio ns:type 2 diabetes mellitus Inject 7 Units under the skin 2 (two) times a day before meals Indications: TYPE 2 DIABETES MELLITUS. Active atorvastatin (LIPITOR) 40 mg tabletIndications: hypercholesterolem ia Take 1 tablet (40 mg total) by mouth in the morning. Indications: high cholesterol. Active traMADol ER (ULTRAM-ER) 200 MG 24 hr tablet Take 50 mg by mouth nightly. Active carvedilol (COREG) 12.5 mg tabletIndications: hypertension Take 1 tablet (12.5 mg total) by mouth in the morning and 1 tablet (12.5 mg total) in the evening. Take with meals. Indications: high blood pressure. Active alendronate (FOSAMAX) 35 mg tabletIndications: unknown Take 1 tablet (35 mg total) by mouth every 7 days Indications: unknown. Take in the morning with a full glass of water, on an empty stomach, and do not take anything else by mouth or lie down for the next 30 min. Active timolol (BETIMOL) 0.5 % ophthalmic solutionIndication s:unknown Administer 1 drop to both eyes in the morning. Indications: unknown. Active IRON POLYSACCHARIDE COMPLEX (FERREX 150 ORAL)Indications:u nknown Take 1 tablet by mouth every other day Indications: unknown. Active cholecalciferol, vitamin D3, 25 mcg (1,000 unit) capsuleIndications :unknown Take 2 capsules (2,000 Units total) by mouth in the morning. Indications: unknown. Active FOLIC ACID/MULTIVIT-MIN/ LUTEIN (CENTRUM SILVER ORAL) Take 1 tablet by mouth daily. Active aspirin 81 mgIndications:myoc ardial reinfarction prevention Take 1 tablet (81 mg total) by mouth in the morning. Indications: myocardial reinfarction prevention. Active cinnamon bark (CINNAMON ORAL) Take 2 capsules by mouth in the morning. Active acetaminophen (TYLENOL EXTRA STRENGTH) 500 mg tablet Take 1 tablet (500 mg total) by mouth every 6 (six) hours as needed. Active furosemide (LASIX) 40 mg tablet Take 1 tablet (40 mg total) by mouth daily. 05/15/20 22 Active gabapentin (NEURONTIN) 300 mg capsule Take 1 capsule (300 mg total) by mouth every 12 (twelve) hours. 07/13/19 23 Active CALCIUM 500 WITH D 500 mg-10 mcg (400 unit) per tablet Take 1 tablet by mouth in the morning and 1 tablet before bedtime. 08/03/19 23 Active Active Problems Problem Noted Date Diagnosed Date Adenomatous polyp of transverse colon 07/01/2018 Diverticulosis large intesti ne w/o perforation or abscess w/o bleeding 07/01/2018 Severe obesity (BMI 35.0-39.9) with comorbidity 06/27/2018 Encounter for colonoscopy du e to history of adenomatous colonic polyps 06/06/2018 Steroid-induced hyperglycemia 04/26/2016 Vision blurred 04/21/2016 Essential hypertension 04/21/2016 Insulin dependent diabetes mellitus 04/21/2016 Vision loss of right eye 04/21/2016 Immunizations Immunization Administration Dates Next Due COVID-19, mRNA, LNP-S, PF, 100mcg/0.5mL Dose 07/2020,08/20/2020 Family History Medical History Relation Name Comments No Known Problems Brother 1 No Known Problems Brother 2 Cancer Brother 3 Cancer Father Stroke Mother Breast cancer Sister Relation Name Status Comments Brother 1 Alive Brother 2 Alive Brother 3 (Age 59) Father (Age 81) Mother (Age 82) Sister (Age 50) Social History Tobacco Use Types Packs/Day Years Used Date Smoking Tobacco: Former Cigarettes 0.5 6 Smokeless Tobacco: Never Tobacco Cessation:Counseling Given: Not Answered Alcohol Use Standard Drinks/Week Comments No 0 (1 standard drink = 0.6 oz pur e alcohol) AUDIT-C Answer Date Recorded Frequency of Alcohol Consumption Never 06/06/2018 Average Number of Drinks Not on file 018 Frequency of Binge Drinking Not on file 05/19 Childcare Answer Date Recorded Childcare Unknown 11/27/2018 Employment Answer Date Recorded Employment Unknown 11/27/2018 Hunger Screening Answer Date Recorded Within the past 12 months we worried whether our food would run out before we got money to buy more. Never True 08/10/2022 Within the past 12 months th e food we bought just didn't last and we didn't have money to get more. Never True 08/10/2022 Purpose - Life Answer Date Recorded Purpose and direction in life Unknown Comments No Sex and Gender Information Value Date Recorded Sex Assigned at Not on file Legal Sex Female 11:40 AM EDT Gender Identity Not on file Sexual Orientation Not on file Last Filed Vital Signs Vital Sign Reading Time Taken Comments Blood Pressure 145/80 10/16/2022 11:05 AM EDT Pulse 64 10/16/2022 11:05 AM EDT Temperature 36.8 C (98.2 F) 10/16/2022 8:39 AM EDT Respiratory Rate 16 10/16/2022 11:05 AM EDT Oxygen Saturation 98% 10/16/2022 11:05 AM EDT Inhaled Oxygen Concentration - - Weight 99.8 kg (220 lb) 10/16/2022 8:39 AM EDT Height 165.1 cm (5' 5 ) 10/16/2022 8:39 AM EDT Body Mass Index 36.61 10/16/2022 8:39 AM EDT Plan of Treatment Health Maintenance Due Date Last Done Comments Depression Screening 1962 Tobacco Screening 1962 DTaP,Tdap and Td Vaccines (1 - Tdap) 1969 Zoster (Shingles) Vaccine (1 of 2) 02/07/2000 Fall Risk Screening 2015 Adult BMI Screening 10/17/2023 10/16/2022 COVID-19 Vaccine (2023- 5 season) 2024 11/08/2021, 05/17/2021, 09/17/2020, Additional history exists Influenza Vaccine 02/16/2025 Colonoscopy 10/17/2027 10/16/2022, 0506/2022, 12/08/2016 Medical Devices Not on file Procedures Procedure Name Priority Date/Time Associated Diagnosis Comments COLONOSCOPY 10/16/2022 10:13 AM EDT from Last 3 Months or Most Recently Relevant to Health Maintenance Results * Colonoscopy (10/16/2022 10:13 AM EDT) 10/16/2022 10:1 3 AM EDT Narrative PM CARDIOVASCULAR - 10/16/2022 10:51 AM EDT [facility] Patient Name: Sonja Avendaño Procedure Date No Time: 10/16/2022 CSN : [id number] Date of : 1950 Admit Type: Outpatient Age: 72 Room: [place] [address] Gender: Female Note Status: Finalized Attending MD: Philippe Oscar DO, Procedure: Colonoscopy Indications: Screening for colorectal malignant neoplasm, High risk colon cancer surveillance: Personal history of colonic polyps, Family history of colon cancer Providers: Philippe Oscar DO Referring MD: Philippe Oscar DO Medicines: Propofol per Anesthesia Complications: No immediate complications. Procedure: After I obtained informed consent, the scope was passed under direct vision. Throughout the procedure, the patient's blood pressure, pulse, and oxygen saturations were monitored continuously. The [facility] [id number]-[id number] # [id number] PEDIATRIC COLONOSCOPE was introduced through the anus and advanced to the cecum, identified by appendiceal orifice and ileocecal valve. The colonoscopy was performed with moderate difficulty due to restricted mobility of the colon. Successful completion of the procedure was aided by applying abdominal pressure. The patient tolerated the procedure well. The quality of the bowel preparation was adequate to identify polyps greater than 5 mm in size. Findings: The perianal and digital rectal examinations were normal. A few small-mouthed diverticula were found in the sigmoid colon. Three sessile polyps were found in the distal rectum, mid sigmoid colon and distal ascending colon. The polyps were 4 to 5 mm in size. These polyps were removed with a hot snare. Resection and retrieval were complete. The exam was otherwise without abnormality on direct and retroflexion views. Estimated Blood Loss: Estimated blood loss: none. Impression: - Diverticulosis in the sigmoid colon. - Three 4 to 5 mm polyps in the distal rectum, in the mid sigmoid colon and in the distal ascending colon, removed with a hot snare. Resected and retrieved. - The examination was otherwise normal on direct and retroflexion views. Recommendation: - Discharge patient to home. - Patient has a contact number available for emergencies. The signs and symptoms of potential delayed complications were discussed with the patient. Return to normal activities tomorrow. Written discharge instructions were provided to the patient. - High fiber diet for the rest of the patient's life. - Repeat colonoscopy in 5 years for surveillance based on pathology results. - Return to my office PRN. Procedure Code(s): --- Professional --- 43093, Colonoscopy, flexible; with removal of tumor(s), polyp(s), or other lesion(s) by snare technique Diagnosis Code(s): --- Professional --- Z12.11, Encounter for screening for malignant neoplasm of colon Z86.010, Personal history of colonic polyps D12.8, Benign neoplasm of rectum D12.5, Benign neoplasm of sigmoid colon D12.2, Benign neoplasm of ascending colon Z80.0, Family history of malignant neoplasm of digestive organs K57.30, Diverticulosis of large intestine without perforation or abscess without bleeding CPT copyright 2021 [employer]. All rights reserved. The codes documented in this report are preliminary and upon director of teaching and learning review may be revised to meet current compliance requirements. DO Philippe Mendes DO 10/16/2022 10:50:41 AM Number of Addenda: 0 Note Initiated On: 10/16/2022 10:13 AM Procedure Note Philippe Oscar DO - 10/16/2022 [facility] Patient Name: Sonja Avendaño Procedure Date No Time: 10/16/2022 CSN : [id number] Date of : 1950 Admit Type: Outpatient Age: 72 Room: [place] [address] Gender: Female Note Status: Finalized Attending MD: Philippe Oscar DO, Procedure: Colonoscopy Indications: Screening for colorectal malignant neoplasm, Highrisk colon cancer surveillance: Personal history ofcolonic polyps, Family history of colon cancer Providers: Philippe Oscar DO Referring MD: Philippe Oscar DO Medicines: Propofol per Anesthesia Complications: No immediate complications. Procedure: After I obtained informed consent, the scope was passed under direct vision. Throughout theprocedure, the patient's blood pressure, pulse, and oxygen saturations were monitored continuously. [id number] # [id number] PEDIATRIC COLONOSCOPE was introduced through the anus and advanced to thececum, identified by appendiceal orifice and ileocecalvalve. The colonoscopy was performed with moderatedifficulty due to restricted mobility of the colon. Successful completion of the procedure was aided by applying abdominal pressure. The patient tolerated the procedure well. The quality of the bowelpreparation was adequate to identify polyps greater than 5 mmin size. Findings: The perianal and digital rectal examinations were normal. A few small-mouthed diverticula were found in the sigmoid colon. Three sessile polyps were found in the distal rectum, mid sigmoidcolon and distal ascending colon. The polyps were 4 to 5 mm in size. These polyps were removed with a hot snare. Resection and retrieval were complete. The exam was otherwise without abnormality on direct and retroflexion views. Estimated Blood Loss: Estimated blood loss: none. Impression: - Diverticulosis in the sigmoid colon. - Three 4 to 5 mm polyps in the distal rectum, inthe mid sigmoid colon and in the distal ascendingcolon, removed with a hot snare. Resected and retrieved. - The examination was otherwise normal on directand retroflexion views. Recommendation: - Discharge patient to home. - Patient has a contact number available for emergencies. The signs and symptoms of potential delayed complications were discussed with thepatient. Return to normal activities tomorrow. Written discharge instructions were provided to thepatient. - High fiber diet for the rest of the patient'slife. - Repeat colonoscopy in 5 years for surveillancebased on pathology results. - Return to my office PRN. Procedure Code(s): --- Professional --- 06479, Colonoscopy, flexible; with removal of tumor(s), polyp(s), or other lesion(s) by snare technique Diagnosis Code(s): --- Professional --- Z12.11, Encounter for screening for malignant neoplasm of colon Z86.010, Personal history of colonic polyps D12.8, Benign neoplasm of rectum D12.5, Benign neoplasm of sigmoid colon D12.2, Benign neoplasm of ascending colon Z80.0, Family history of malignant neoplasm of digestive organs K57.30, Diverticulosis of large intestine without perforation orabscess without bleeding CPT copyright 2021 [employer]. All rights reserved. The codes documented in this report are preliminary and upon director of teaching and learning reviewmay be revised to meet current compliance requirements. DO Philippe Mendes DO 10/16/2022 10:50:41 AM Number of Addenda: 0 Note Initiated On: 10/16/2022 10:13 AM us Philippe Oscar DO GI PROCEDURE ORDERABLES Fin al Result PM CARDIOVASCULAR from Last 3 Months or Most Recently Relevant to Health Maintenance Insurance [employer] MED[employer]ARE Care Teams Manager Pool Relationship Specialty Start Date End Date Shaikh Mendez MD PCP - General Internal Medicine 08/10/22
--- OUTSIDE RECORDS SUMMARY | 2024-11-25 09:49 | XMS_ITS | Clinical Summary ---
Author Organization [facility] Address [address] [place] [address] Care Team Providers Care Log Loader Name Role Phone Ciaran Hardin MD Primary Care Provider [phone] Donita Valle NP Unavailable [phone] Allergies Active Allergy Reactions Criticality Noted Date Comments Aspirin Nausea Only Medium 08/10/2022 Patient states baby aspirin does not bother her. Medications aspirin 81 MG EC tablet 1 (one) time each day at the same time. Active co-enzyme Q-10 30 MG capsule 1 (one) time each day at the same time. Active Multiple Vitamins-Minerals (Centrum Silver) chewable tablet as directed Orally Active Blood Glucose Monitoring Suppl (Blood Glucose Monitor System) w/Device kit 1 (one) time each day Active timolol (Betimol) 0.5 % ophthalmic solution 1 (one) time each day at the same time Active cholecalciferol (Vitamin D-3) 25 MCG (1000 UT) capsule Take 2,000 Units by mouth in the morning. Active glucose blood (OneTouch Verio) test stripIndications:T ype 2 diabetes mellitus with diabetic polyneuropathy, without long-term current use of insulin ([facility]) TEST ONCE DAILY 100 strip 11 12/31/19 24 Active latanoprost (Xalatan) 0.005 % ophthalmic solution INSTILL 1 DROP INTO EACH EYE EVERY NIGHT AT BEDTIME 12/13/19 24 Active Calcium Carb-Cholecalcifer ol (OYSCO 500 + D) 500-5 MG-MCG tabletIndications: Age-related osteoporosis without current pathological fracture ([facility]) Take 1 tablet by mouth in the morning and 1 tablet before bedtime. 180 tablet 1 06/02/20 24 Active metFORMIN (Glucophage) 500 MG tabletIndications: Type 2 diabetes mellitus with diabetic polyneuropathy, without long-term current use of insulin (CMS/HCC) Take 1 tablet (500 mg) by mouth in the morning and 1 tablet (500 mg) before bedtime. 180 tablet 07/14/19 25 Active furosemide (Lasix) 40 MG tabletIndications: Chronic heart failure with preserved ejection fraction (CMS/HCC) Take 1 tablet (40 mg) by mouth Daily 90 tablet 1 09/02/19 25 025 Active gabapentin (Neurontin) 300 MG capsuleIndications :Chronic pain syndrome Take 1 capsule (300 mg) by mouth at bedtime 90 capsule 1 09/02/19 25 025 Active carvedilol (Coreg) 25 MG tabletIndications: Essential hypertension (CMS/HCC) Take 1 tablet (25 mg) by mouth in the morning and 1 tablet (25 mg) in the evening. Take with meals. 180 tablet 1 09/02/19 25 025 Active rosuvastatin (Crestor) 20 MG tabletIndications: Mixed hyperlipidemia (CMS/HCC) Take 1 tablet (20 mg) by mouth at bedtime 90 tablet 1 09/02/19 25 025 Active alendronate (Fosamax) 70 MG tabletIndications: Age-related osteoporosis without current pathological fracture (CMS/HCC) Take 1 tablet (70 mg) by mouth every 7 (seven) days Take in the morning with a full glass of water, on an empty stomach, and do not take anything else by mouth or lie down for the next 30 min.TAKE 1 TABLET BY MOUTH 1 TIME A WEEK 12 tablet 09/17/19 25 025 Active losartan (Cozaar) 50 MG tabletIndications: Essential hypertension (CMS/HCC) Take 1 tablet (50 mg) by mouth in the morning and 1 tablet (50 mg) before bedtime. 180 tablet 11/20/19 25 025 Active glipiZIDE (Glucotrol) 5 MG tabletIndications: Type 2 diabetes mellitus with diabetic polyneuropathy, without long-term current use of insulin (CMS/HCC) Take 1 tablet (5 mg) by mouth Daily 90 tablet 11/21/19 25 025 Active carBAMazepine (TEGretol) 200 MG tabletIndications: Seizure disorder (CMS/HCC) Take 1 tablet (200 mg) by mouth in the morning and 1 tablet (200 mg) before bedtime. 180 tablet 11/21/19 25 025 Active glipiZIDE (Glucotrol) 5 MG tabletIndications: Type 2 diabetes mellitus with diabetic polyneuropathy, without long-term current use of insulin (CMS/HCC) Take 1 tablet (5 mg) by mouth Daily 90 tablet 1 05/14/20 24 025 Discontinu ed(Reorder ) losartan (Cozaar) 50 MG tabletIndications: Essential hypertension (CMS/HCC) Take 1 tablet (50 mg) by mouth in the morning and 1 tablet (50 mg) before bedtime. 180 tablet 1 05/26/20 24 025 Discontinu ed(Reorder ) carBAMazepine (TEGretol) 200 MG tabletIndications: Seizure disorder (CMS/HCC) Take 1 tablet (200 mg) by mouth in the morning and 1 tablet (200 mg) before bedtime. 180 tablet 1 06/02/20 24 025 Discontinu ed(Reorder ) traMADol (Ultram) 50 MG tabletIndications: Chronic pain syndrome Take 1 tablet (50 mg) by mouth Daily 30 tablet 2 10/04/19 025 Active Problems Problem Noted Date Diagnosed Date Body mass index (BMI) 37.0-37.9, adult Morbid (severe) obesity due to excess calories 0 09/01/2024 Assessment & Plan (09/01/2024 7:12 AM EDT): Discussed with patient their BMI (actual, verses recommended). We have also discussed lifestyle modifications: attempts to perform physical activity as chronic conditions allow, also to monitor dietary intake: increasing protein/fruits/veggies and lowering carb intake (unless contraindicated). Limit sodas, juices, and sugary drinks. Other specified anemias 09/01/2024 Incontinence of urine in female 09/01/2024 Rhinitis 03/03/2024 Chronic heart failure with preserved ejection fr action 12/03/2023 Assessment & Plan (09/01/2024 2:14 PM EDT): Current meds: b cora, losartan Assessment & Plan (12/03/2023 1:59 PM EDT): LE edema, worse than usual. No SOB, orthopnea/PND. Asked patient to use extra lasix as needed for LE edema Otherwise c/w lasix 40 mg daily. Seizure disorder 12/03/2023 Assessment & Plan (09/01/2024 2:14 PM EDT): Currently taking tegretol as well gabapentin Less than 10 years Has had MRI and EEG Does not follow with neurology Assessment & Plan (12/03/2023 1:57 PM EDT): Seizure free for over 5 years minimum. On carbamazepine. Encounter for screening mamm ogram for malignant neoplasm of breast 05/22/2023 Assessment & Plan (05/22/2023 3:02 PM EST): Last mammogram was in 2020. Reordered Age-related osteoporosis wit holupe current pathological fracture 05/22/2023 Assessment & Plan (09/01/2024 7:16 AM EDT): Calcium/vit D Check DEXA Assessment & Plan (05/22/2023 3:01 PM EST): On Alendronate. Tolerating it. C/w same Chronic pain syndrome 05/22/2023 Assessment & Plan (09/01/2024 2:12 PM EDT): Current meds: tramadol once a day OARRS reviewed This is for neuropathy Assessment & Plan (12/03/2023 1:57 PM EDT): Due to b/l knee arthritis and painful diabetic neuropathy Takes tramadol as needed. C/w same. No concern for abuse, overdose. Assessment & Plan (05/22/2023 3:00 PM EST): Due to b/l knee arthritis and painful diabetic neuropathy Takes tramadol as needed. C/w same. No concern for abuse, overdose. Encounter for Medicare annual wellness exam 10/2022 Assessment & Plan (05/22/2023 3:03 PM EST): Patient here for medicare wellness. Recent COVID infection. Recovered and doing well now. Colonoscopy 2021- repeat in 5 years as polyps on exam Ordered mammogram - last one in 21 Refused Flu vaccine Recommended to take Pneumonia vaccine. Type 2 diabetes mellitus without complications 0 10/31/2022 Assessment & Plan (09/01/2024 2:25 PM EDT): Check blood sugars daily, notify if <70 or >200. Take medications (pills or insulin) as directed. Monitor for s/s of hypoglycemia (sweaty, dizziness, nausea, vomiting, or shakiness). Watch for increase in thirst, urination, or appetite. Inspect feet frequently monitoring for open wounds , and also recommend yearly eye exam. Pt should attempt to remain as physically active as chronic conditions allow, as well as trying to follow a diet low in carbohydrates, and simple sugars. Current meds: asa, arb, ASTUDILLO, metfromin A1c 7.3 09/01/24 Assessment & Plan (06/02/2024 9:03 AM EST): Glipizide 45mg Jardiance 10mg Most recent labs: hemoglobin A1C 7.4 % Recheck A1C in June Checks infrequently, 3 times per week; Average FSBS range from BGs range between 111 and 160 No episode of hypoglycemia No medication adverse effects reported by the patient. Patient educated on lifestyle modifications, dietary restrictions, signs and symptoms of hypoglycemia/hyperglycemia and importance of eating regular consistent meals. Stressed upon importance of checking blood glucose at home and bring blood glucose log to appointments. All questions, concerns answered and addressed. Encouraged to call office if persistent hypoglycemia/hyperglycemia on home glucose monitoring noted. Type 2 diabetes mellitus with diabetic polyneuro michele 10/31/2022 Overview (03/03/2024): Jardiance 10mg samples given Lot# [id number] Exp: 07/13 x 3 Lot# [id number] Exp: 07/13 x 1 Will consider initiating Jardiance- advised pt not to initiate until after A1C results; Will call with results and direction. Assessment & Plan (09/01/2024 4:27 PM EDT): Control DM Freq inspection of feet, recommend proper fitting shoes Gabapentin, tramadol OARRS reviewed Assessment & Plan (06/02/2024 9:04 AM EST): Glipizide 45mg Jardiance 10mg Most recent labs: hemoglobin A1C 7.4 % Recheck A1C in June Checks infrequently, 3 times per week; Average FSBS range from BGs range between 120's No episode of hypoglycemia No medication adverse effects reported by the patient. Patient educated on lifestyle modifications, dietary restrictions, signs and symptoms of hypoglycemia/hyperglycemia and importance of eating regular consistent meals. Stressed upon importance of checking blood glucose at home and bring blood glucose log to appointments. All questions, concerns answered and addressed. Encouraged to call office if persistent hypoglycemia/hyperglycemia on home glucose monitoring noted. Assessment & Plan (03/03/2024 11:13 AM EDT): Glipizide 45mg Metformin 500mg Once daily- is prescribed Bid; Pt is concerned about renal effects of Metformin. Most recent labs: hemoglobin A1C 7.1% Checks infrequently, 3 times per week; Average FSBS range from BGs range between 111 and 160 No episode of hypoglycemia No medication adverse effects reported by the patient. Patient educated on lifestyle modifications, dietary restrictions, signs and symptoms of hypoglycemia/hyperglycemia and importance of eating regular consistent meals. Stressed upon importance of checking blood glucose at home and bring blood glucose log to appointments. All questions, concerns answered and addressed. Encouraged to call office if persistent hypoglycemia/hyperglycemia on home glucose monitoring noted. Assessment & Plan (12/03/2023 1:57 PM EDT): Ordered A1C. Average FSBS range from BGs consistently in an acceptable range No episode of hypoglycemia No medication adverse effects reported by the patient. Check labs Assessment & Plan (05/22/2023 2:59 PM EST): Most recent labs: hemoglobin A1C 7.0 02/07 DM Foot Exam: DM Eye Exam: Average FSBS range from BGs consistently in an acceptable range No episode of hypoglycemia No medication adverse effects reported by the patient. Patient educated on lifestyle modifications, dietary restrictions, signs and symptoms of hypoglycemia/hyperglycemia and importance of eating regular consistent meals. Stressed upon importance of checking blood glucose at home and bring blood glucose log to appointments. All questions, concerns answered and addressed. Encouraged to call office if persistent hypoglycemia/hyperglycemia on home glucose monitoring noted. Check labs Essential hypertension 12/22/2013 Assessment & Plan (09/01/2024 7:11 AM EDT): Please check blood pressure daily and record DASH diet Limit caffeine Take medication as directed Contact office if chest pain, pressure, dizziness, shortness of breath, swelling legs Recommend slow position changes Current meds: asa, b cora, arb, Assessment & Plan (06/02/2024 9:03 AM EST): Currently taking Carvedilol 25mg Losartan 50mg Checks BP at home very infrequently; Denies orthostatic changes, dizziness, cough, shortness of breath, swelling in extremities. Continue current regimen. Given BP log, advised pt to record BP and bring log back with them to next visit. Assessment & Plan (03/03/2024 10:09 AM EDT): Currently taking Carvedilol 25mg Losartan 50mg Checks BP at home very infrequently; Denies orthostatic changes, dizziness, cough, shortness of breath, swelling in extremities. Continue current regimen. Given BP log, advised pt to record BP and bring log back with them to next visit. Assessment & Plan (12/03/2023 1:58 PM EDT): Above goal in office. Tolerating Anti hypertensive w/o adverse effects. Patient encouraged to continue with home BP monitoring and call office if he experiences orthostatic symptoms or persistently elevated BP. Cw Coreg/Losartan/Lasix. Assessment & Plan (05/22/2023 3:01 PM EST): BP well controlled. On average less than 130/90. Tolerating Anti hypertensive w/o adverse effects. Denies lightheadedness, dizziness, syncope, presyncope. Patient encouraged to continue with home BP monitoring and call office if he experiences orthostatic symptoms or persistently elevated BP. Hyperlipidemia 12/22/2013 Assessment & Plan (09/01/2024 4:44 PM EDT): No currently taking statin therapy, when questioned why, she stated that she read that this medication was not a good medication for people to take so she stopped taking this I found no data to support this, I did reach out to her and let her know We will restart her rosuvastatin 20mg daily Assessment & Plan (06/02/2024 9:02 AM EST): Stopped taking Rosuvastatin 20mg. State she believes it is not good for her Discussed with pt the cardiovascular risks associated with unmanaged cholesterol, LDL, and triglycerides. Pt reports understanding and states she does not want to take statin. Assessment & Plan (03/03/2024 10:10 AM EDT): Currently taking Rosuvastatin 20mg Denies any myalgias. Continue current regimen. Assessment & Plan (12/03/2023 2:00 PM EDT): Has refused to take cholesterol lowering drugs in the past. Assessment & Plan (05/22/2023 3:01 PM EST): Has refused to take cholesterol lowering drugs in the past. Resolved Problems Problem Noted Date Diagnosed Date Resolved Date Chronic congestive heart failure 05/22/2023 09/01/2024 Assessment & Plan (12/03/2023 2:00 PM EDT): Doing well. LE worse than usual. Use lasix 40 q12 as needed for LE edema. Otherwise use lasix 40 mg daily. Assessment & Plan (05/22/2023 3:00 PM EST): Doing well. More or less Euvolemic. C/w Lasix for volume control. Encounters Date Type Department Care Team Description 11/20/2024 Refill [facility] [address] [place] [address] Jeannine Aldana NP Type 2 diabetes mellitus with diabetic polyneuropathy, without long-term current use of insulin ([facility]); Seizure disorder ([facility]) 11/19/2024 Refill [facility] [address] [place] [address] Ciaran Hradin MD Essential hypertension ([facility]) 11/06/2024 Telephone [facility] [address] [place] [address] Jeannine Aldana, LUIS ARMANDO 10/03/2024 Telephone [facility] [address] [place] [address] Jeannine Aldana, LUIS ARMANDO 10/01/2024 Refill [facility] [address] [place] [address] Ciaran Hardin MD Chronic pain syndrome 09/16/2024 Refill [facility] [address] [place] [address] Jeannine Aldana NP Age-related osteoporosis without current pathological fracture ([facility]) 09/01/2024 1:40 PM EDT Office Visit [facility] [address] [place] [address] Jeannine Aldana, LUISA RMANDO Type 2 diabetes mellitus without complication, without long-term current use of insulin ([facility]) (Primary Dx); Morbid (severe) obesity due to excess calories ([facility]); Mixed hyperlipidemia ([facility]) ; Body mass index (BMI) 37.0-37.9, adult; Seizure disorder ([facility]); Chronic pain syndrome; Type 2 diabetes mellitus with diabetic polyneuropathy, without long-term current use of insulin ([facility]); Chronic heart failure with preserved ejection fraction ([facility]); Essential hypertension ([facility]); Anemia due to other cause, not classified; Encounter for screening mammogram for malignant neoplasm of breast; Age-related osteoporosis without current pathological fracture ([facility]); Incontinence of urine in female 08/28/2024 Refill [facility] [address] [place] [address] Ciaran Hardin MD Chronic pain syndrome from Last 3 Months Family History Medical History Relation Name Comments Bone cancer Father Cancer Father No Known Problems Maternal Grandmother Heart disease Mother Hypertension Mother Stroke Mother Diabetes Sibling Relation Name Status Comments Father Maternal Grandmother Mother Sibling Alive Social History Tobacco Use Types Packs/Day Years Used Date Smoking Tobacco: Former Cigarettes Q uit: 1998 Passive Smoke Exposure: Past Smokeless Tobacco: Never Tobacco Cessation:Counseling Given: Not Answered Comments:Quit smoking 20 years ago Alcohol Use Standard Drinks/Week Comments Never [...] 05/22/2023 How often do you attend chur ch or jewish services? More than 4 times per year 05/22/2023 Do you belong to any clubs o r organizations such as mandaeism groups, unions, fraternal or athletic groups, or [...] Recorded Patient Health Questionnaire-2 Score 0 03/03/2024 [facility] - Occupational Stress [...] Sign Reading Time Taken Comments Blood Pressure 156/104 09/01/2024 1:48 PM EDT Pulse 77 09/01/2024 1:48 PM EDT Temperature 36.9 C (98.5 F) 09/01/2024 1:48 PM EDT Respiratory Rate 18 09/01/2024 1:48 PM EDT Oxygen Saturation 98% 09/01/2024 1:48 PM EDT Inhaled Oxygen Concentration - - Weight 102 kg (225 lb 6.4 oz) 09/01/2024 1:48 PM EDT Height 165.1 cm (5' 5 ) 09/01/2024 1:48 PM EDT Body Mass Index 37.51 09/01/2024 1:48 PM EDT Plan of Treatment Upcoming Encounters Date Type Department Care Team (Late st Contact Info) Description 11/27/2024 1:20 PM EDT Office Visit [facility] [address] [place] [phone] Jeannine Aldana, LUIS ARMANDO [address] [place] [phone] Health Maintenance Due Date Last Done Comments CT Colonography 1950 FIT-DNA 1950 FIT 1950 FOBT 1950 Sigmoidoscopy 1950 Mammogram 1990 Medicare Annual Wellness (AWV) 05/22/2024 05/22/2023, 05/22/2023 Diabetes: Retinopathy Screening 08/16/2024 08/16/2022 Diabetes: Hemoglobin A1C 12/02/2024 025, 12/03/2023, 01/16/2023 Diabetes: Urine Protein Screening 12/02/2024 12/03/2023 Pneumococcal Vaccine: 65+ Years (1 of 2 - PCV) 06/02/2025 Postponed from 1969 (Patient Refused) Colonoscopy 10/16/2032 10/16/2022, 10/16/2022 Colorectal Cancer Screening 10/16/2032 Influenza Vaccine Discontinued Procedures Procedure Name Priority Date/Time Associated Diagnosis Comments POCT GLYCOSYLATED HEMOGLOBIN (HGB A1C) Routine 09/01/2024 2:04 PM EDT Type 2 diabetes mellitus without complication, without long-term current use of insulin from Last 3 Months Results * (ABNORMAL) POCT glycosylated hemoglobin (Hb A1C) docked device (09/01/2024 2:04 PM EDT) Hemoglobin A1C 7.3 Blood Venous blood specimen / Unknown 09/01/2024 2:04 PM EDT Jeannine Aldana BEHAVIORAL HEALTH CARE MANAGER POINT OF CARE TEST ENTER/EDIT O RDERABLES Edited Result - Final from Last 3 Months Insurance [employer] MED[employer]AGE Care Teams Log Loader Relationship Specialty Start Date End Date Ciaran Hardin MD [address] [place] [phone] PCP - General Family Medicine 01/24/24 Donita Valle NP [address] [place] [phone] Nurse Practitioner Family Medicine 01/24/24
--- OUTSIDE RECORDS SUMMARY | 2024-11-25 09:49 | XMS_ITS | Clinical Summary ---
Author Organization [facility] Address [address] [place] [address] Care Team Providers Care Speech Therapist Early Intervention Name Role Phone Unavailable Primary Care Provider [...]
--- OUTSIDE RECORDS SUMMARY | 2024-11-25 09:49 | XMS_ITS | Encounter Summary ---
Author Organization [facility] Address [address] [facility] [place] [address] Care Team Providers Care Home Coordinator Name Role Phone Alejandro Clark MD Primary Care Provider [phone] Shaikh DI Mendez Primary Care Provider Shaikh DI Mendez Unavailable [phone] Shaikh DI Mendez Primary Care Provider [phone] Ciaran Hardin MD Primary Care Provider [phone] Donita Valle NP Unavailable [phone] Encounter Details Date Type Department Care Team (Late st Contact Info) Description 11/12/2022 Abstract [facility] [address] [place] [phone] Joseph Mercer [facility] [address] [place], [place] [id number] Social History Tobacco Use Types Packs/Day Years [...] Visit [facility] [address] [place] [address] Jeannine Aldana, LUIS ARMANDO [address] [place] [phone] documented as of this encounter Visit Diagnoses Not on filedocumented in this encounter Care Teams Home Coordinator Relationship Specialty Start Date End Date Alejandro Clark MD [address] [place] [id number] PCP - General Internal Medicine 11/09/22 01/21/23 Shaikh Mendez MD [address] [place] [id number] PCP - General Internal Medicine 01/22/23 12/02/23 Shaikh Mendez MD [address] [place] [phone] PCP - [employer] 07/19/23 10/15/24 Shaikh Mendez MD [address] [place] [phone] PCP - General Internal Medicine 12/03/23 01/23/24 Ciaran Hardin MD [address] [place] [phone] PCP - General Family Medicine 01/24/24 Donita Valle NP [address] [place] [phone] Nurse Practitioner Family Medicine 01/24/24 documented as of this encounter
--- OUTSIDE RECORDS SUMMARY | 2024-11-25 10:00 | XMS_ITS | CCD ---
Author Organization [facility] Care Team Providers Care Fish Flipper Name Role Phone PHYSICIAN, DEFAULT Admitting Unavailable PHYSICIAN, DEFAULT Attending Unavailable DOROTHY MCCORMACK Primary Care Unavailable FAWWAD, VALADEZ H Consulting Unavailable FAWWAD, VALADEZ H Attending Unavailable FAWWAD, VALADEZ H Admitting Unavailable FAWWAD, VALADEZ H Primary Care Unavailable FAWWAD, VALADEZ H Consulting Unavailable FAWWAD, VALADEZ H Attending Unavailable FAWWAD, VALADEZ H Admitting Unavailable FAWWAD, VALADEZ H Primary Care Unavailable Shaikh Mendez MD Primary Care Provider Shaikh Mendez MD Unavailable Ciaran Hardin MD Primary Care Provider Donita Valle NP Unavailable Tori DURÁN, Donita Unavailable [phone] JEANNINE ALDANA Attending Unavailable SHAIKH MENDEZ Attending Unavailable DONITA VALLE Attending UnavailDONITA Downey Attending UnavailCoty Deal Attending Unavailable JEANNINE ALDANA Referring Unavailable Coty Hopper Attending Unavailable JEANNINE ALDANA Primary Care Physician Allergies Allergy Classification Reported Allergen(s) Allergy Type Date of Onset Reaction(s) Facility (20 sources) Aluminum aspirin; Translations: [aspirin] Drug Allergy 3 Nausea Only [facility] (1 source) Aspirin; Translations: [aspirin] Drug Allergy Nausea (finding) [facility] Medications Current Medications Medication Drug Class(es) Dates Sig (Normalized) Sig (Original) alendronic acid 70 mg oral tablet (20 sources) Bisphosphonate Start: 09-16-2024 End: 12-09-2024 take 1 tablet by mouth in the morning, then take 1 tablet by mouth every week alendronate (Fosamax) 70 MG tablet Indications: Age-related osteoporosis without current pathological fracture (CMS/HCC) Take 1 tablet (70 mg) by mouth every 7 (seven) days Take in the morning with a full glass of water, on an empty stomach, and do not take anything else by mouth or lie down for the next 30 min.TAKE 1 TABLET BY MOUTH 1 TIME A WEEK 12 tablet 09/16/2024 12/09/2024 Active Start: 09-10-2023 End: 09-16-2024 take 1 tablet by mouth every week alendronate (Fosamax) 70 MG tablet Indications: Age-related osteoporosis without current pathological fracture (CMS/HCC) TAKE 1 TABLET BY MOUTH 1 TIME A WEEK 12 tablet 06/24/2024 09/16/2024 Discontinued (Reorder) Start: 05-16-2023 alendronate (F osamax) 70 MG tablet Take 70 mg by mouth every 7 (seven) days 0 05/16/2023 Active aspirin 81 mg oral capsule (20 sources) Platelet Aggregation Inhibitor, Nonsteroidal Anti-inflammatory Drug Start: 11-19-2024 take 1 mg by mouth every twenty-four hours aspirin 81 mg oral capsule mg cap(s), Oral, q24hr, Refills(s) 0 Start Date: 11/19/24 Status: Ordered Repeat number: 1 aspirin 81 MG EC tablet 1 (one) time each day at the same time. Active atorvastatin 40 mg oral tablet (1 source) HMG-CoA Reductase Inhibitor take 1 tablet by mouth in the morning atorvastatin (Lipitor) 40 MG tablet Take 40 mg by mouth in the morning. 0 Active Blood Glucose Monitoring Suppl (Blood Glucose Monitor System) w/Device kit (20 sources) Blood Glucose Monitoring Suppl (Blood Glucose Monitor System) w/Device kit 1 (one) time each day Active Blood Glucose Mo nitoring Suppl (Blood Glucose Monitor System) w/Device kit 1 (one) time each day 0 Active calcium carbonate 500 mg oral tablet (17 sources) End: 06-02-2024 calcium carbonate (Os-Edson) 1250 (500 Ca) MG tablet every 12 (twelve) hours. 06/02/2024 Discontinued (Duplicate order) calcium carbonate 1250 mg / cholecalciferol 200 unt oral tablet (20 sources) Vitamin D Start: 11-19-2024 take 1 tablet by mouth once daily, then take 1 tablet by mouth once daily in the morning, then take 1 tablet by mouth at bedtime Oysco 500 with D 500 mg-200 intl units oral tablet 1 tab(s), TAKE 1 TABLET BY MOUTH EVERY MORNING AND 1 BEFORE BEDTIME Start Date: 11/19/24 Status: Ordered Repeat number: 1 Start: 06-02-2024 take 1 tablet by marlen th in the morning Calcium Carb-Cholecalciferol (OYSCO 500 + D) 500-5 MG-MCG tablet Indications: Age-related osteoporosis without current pathological fracture (CMS/HCC) Take 1 tablet by mouth in the morning and 1 tablet before bedtime. 180 tablet 1 06/02/2024 Active Start: 11-13-2023 End: 06-02-2024 take 1 tablet by mouth twice daily Calcium Carb-Cholecalciferol (OYSCO 500 + D) 500-5 MG-MCG tablet Indications: Age-related osteoporosis without current pathological fracture (CMS/HCC) TAKE 1 TABLET BY MOUTH TWICE DAILY 180 tablet 1 11/13/2023 06/02/2024 Discontinued (Reorder) carvedilol 25 mg oral tablet (20 sources) alpha-Adrenergic Rayo, beta-Adrenergic Rayo Start: 12-03-2023 End: 02-28-2025 take 1 tablet by mouth in the morning carvedilol (Coreg) 25 MG tablet Indications: Essential hypertension (CMS/HCC) Take 1 tablet (25 mg) by mouth in the morning and 1 tablet (25 mg) in the evening. Take with meals. 180 tablet 1 09/01/2024 02/28/2025 Active take 1 tablet by mouth in the mo rning carvedilol (Coreg) 25 MG tablet Take 25 mg by mouth in the morning and 25 mg in the evening. Take with meals. 0 Active cetirizine hydrochloride 10 mg oral tablet (13 sources) Histamine-1 Receptor Antagonist Start: 03-03-2024 End: 06-02-2024 take 1 tablet by mouth once daily cetirizine (ZyrTEC) 10 MG tablet Indications: Rhinitis, unspecified type Take 1 tablet (10 mg) by mouth Daily 30 tablet 2 03/03/2024 06/02/2024 Discontinued (Med list cleanup) cholecalciferol 0.025 mg oral capsule (20 sources) Vitamin D take 1 capsule by mouth in the morning cholecalciferol (Vitamin D-3) 25 MCG (1000 UT) capsule Take 2,000 Units by mouth in the morning. Active cholecalciferol 50 mcg (2000 intl units) oral tablet, disintegrating (1 source) Start: 11-19-2024 take 1 tablet by mouth once daily cholecalciferol 50 mcg (2000 intl units) oral tablet, disintegrating mcg tab(s), Oral, Daily, Refills(s) 0 Start Date: 11/19/24 Status: Ordered Repeat number: 1 Co-Q10 30 mg oral capsule (1 source) Start: 11-19-2024 take 1 capsule by mouth three times daily Co-Q10 30 mg oral capsule mg cap(s), Oral, TID, Refills(s) 0 Start Date: 11/19/24 Status: Ordered Repeat number: 1 empagliflozin 10 mg oral tablet (10 sources) Sodium-Glucose Cotransporter 2 Inhibitor Start: 11-19-2024 take 1 mg by mouth once daily in the morning Jardiance 10 mg oral tablet mg tab(s), Oral, qAM, Refills(s) 0 Start Date: 11/19/24 Status: Ordered Repeat number: 1 Start: 06-23-2024 take 1 tablet by marlen th once daily empagliflozin (Jardiance) 10 MG Indications: Type 2 diabetes mellitus with diabetic polyneuropathy, without long-term current use of insulin ([facility]) Take 1 tablet (10 mg) by mouth Daily 90 tablet 06/23/2024 Active End: 06-16-2024 take 10 mg by mouth once daily empagliflozin (Jardiance) 10 MG Take 10 mg by mouth Daily 06/16/2024 Discontinued (Reorder) fluticasone propionate 0.093 mg/actuat metered dose nasal spray (20 sources) Corticosteroid Start: 11-19-2024 fluticasone 93 mcg/inh nasal spray mcg, spray(s), BID, Refill(s) 0 Start Date: 11/19/24 Status: Ordered Repeat number: 1 Start: 03-03-2024 End: 07-02-2024 take 1 spray(s) nasal route once daily fluticasone (Flonase Allergy Relief) 50 MCG/ACT nasal spray Indications: Rhinitis, unspecified type Administer 1 spray into each nostril Daily Shake gently. Before first use, prime pump. After use, clean tip and replace cap. 16 g 2 06/02/2024 Active furosemide 40 mg oral tablet (20 sources) Loop Diuretic Start: 09-01-2024 End: 11-30-2024 take 1 tablet by mouth once daily furosemide (Lasix) 40 MG tablet Indications: Chronic heart failure with preserved ejection fraction (CMS/HCC) Take 1 tablet (40 mg) by mouth Daily 90 tablet 1 09/01/2024 11/30/2024 Active Start: 12-03-2023 End: 06-02-2024 take 1 tablet by mouth in the morning furosemide (Lasix) 40 MG tablet Indications: Chronic heart failure with preserved ejection fraction (CMS/HCC) Take 1 tablet (40 mg) by mouth in the morning and 1 tablet (40 mg) before bedtime. 180 tablet 06/02/2024 Active Start: 05-17-2023 take 1 tablet by marlen th once daily furosemide (Lasix) 40 MG tablet Indications: Chronic heart failure with preserved ejection fraction (CMS/HCC) TAKE 1 TABLET BY MOUTH DAILY 90 tablet 0 05/17/2023 Active gabapentin 300 mg oral capsule (20 sources) Anti-epileptic Agent Start: 09-01-2024 End: 11-30-2024 take 1 capsule by mouth at bedtime gabapentin (Neurontin) 300 MG capsule Indications: Chronic pain syndrome Take 1 capsule (300 mg) by mouth at bedtime 90 capsule 1 09/01/2024 11/30/2024 Active Start: 12-03-2023 End: 08-31-2024 take 1 capsule by mouth once gabapentin (Neurontin) 30 0 MG capsule Indications: Chronic pain syndrome Take 1 capsule (300 mg) by mouth every 12 (twelve) hours 180 capsule 06/02/2024 08/31/2024 Active Start: 07-13-2022 take 1 capsule by mo uth every twelve hours gabapentin (Neurontin) 300 MG capsule Take 300 mg by mouth every 12 (twelve) hours 0 07/13/2022 Active glipiZIDE 5 mg oral tablet (20 sources) Sulfonylurea Start: 07-25-2023 End: 02-18-2025 take 1 tablet by mouth once daily glipiZIDE (Glucotrol) 5 MG tablet Indications: Type 2 diabetes mellitus with diabetic polyneuropathy, without long-term current use of insulin (CMS/HCC) Take 1 tablet (5 mg) by mouth Daily 90 tablet 11/20/2024 02/18/2025 Active 12 hr guaiFENesin 1200 mg extended release oral tablet (9 sources) Start: 11-19-2024 take 1 mg by mouth every twelve hours guaifenesin 1200 mg ER Tab mg, Oral, q12hr, Refills(s) 0 Start Date: 11/19/24 Status: Ordered Repeat number: 1 Start: 06-02-2024 take 2 tablets by mo ut in the morning, then take 2 tablets by mouth every twelve hours at bedtime guaiFENesin (Mucinex) 600 MG 12 hr tablet Indications: Acute cough Take 2 tablets (1,200 mg) by mouth in the morning and 2 tablets (1,200 mg) before bedtime. Do not crush, chew, or split.. 60 tablet 06/02/2024 Active latanoprost 0.05 mg/ml ophthalmic solution (20 sources) Prostaglandin Analog Start: 11-19-[address] Opth 0.005% Hien 1 drop(s), OPTH, Once a day (at bedtime), 2.5 mL, Refill(s) 0 Start Date: 11/19/24 Status: Ordered Quantity: 2.5 Unit: mL Repeat number: 1 Start: 12-13-2023 take 1 drop(s) into the eye(s) once daily at bedtime latanoprost (Xalatan) 0.005 % ophthalmic solution INSTILL 1 DROP INTO EACH EYE EVERY NIGHT AT BEDTIME 12/13/2023 Active losartan potassium 50 mg oral tablet (20 sources) Angiotensin 2 Receptor Rayo Start: 12-03-2023 End: 02-17-2025 take 1 tablet by mouth in the morning losartan (Cozaar) 50 MG tablet Indications: Essential hypertension (CMS/HCC) Take 1 tablet (50 mg) by mouth in the morning and 1 tablet (50 mg) before bedtime. 180 tablet 11/19/2024 02/17/2025 Active take 1 tablet by mouth in the mo rning losartan (Cozaar) 50 MG tablet Take 50 mg by mouth in the morning and 50 mg before bedtime. 0 Active metFORMIN hydrochloride 500 mg oral tablet (14 sources) Biguanide Start: 07-14-2024 take 1 tablet by mouth once daily metformin 500 mg ER Tab 500 mg = 1 tab(s), Oral, Daily, # 90 tab(s), Refills(s) 0 Start Date: 11/19/24 Status: Ordered Quantity: 90.0 Unit: tab(s) Repeat number: 1 Start: 12-03-2023 End: 03-03-2024 take 1 tablet by mouth in the morning metFORMIN (Glucophage) 500 MG tablet Indications: Type 2 diabetes mellitus with diabetic polyneuropathy, without long-term current use of insulin (CMS/HCC) Take 1 tablet (500 mg) by mouth in the morning and 1 tablet (500 mg) before bedtime. 180 tablet 12/03/2023 03/03/2024 Discontinued (Therapy completed) Start: 05-31-2023 take 1 tablet by marlen th twice daily metFORMIN (Glucophage) 500 MG tablet Indications: Type 2 diabetes mellitus with diabetic polyneuropathy, without long-term current use of insulin (CMS/HCC) TAKE 1 TABLET BY MOUTH TWICE DAILY 180 tablet 0 05/31/2023 Active 24 hr mirabegron 25 mg extended release oral tablet (1 source) beta3-Adrenergic Agonist Start: 11-19-2024 take 1 tablet by mouth once daily Myrbetriq 25 mg oral tablet, extended release 25 mg = 1 tab(s), Oral, Daily, # 30 tab(s), Refills(s) 3, Pharmacy: [id number], 162, cm, 11/19/24 13:40:00 EDT, Height/Length Dosing Start Date: 11/19/24 Status: Ordered Quantity: 30.0 Unit: tab(s) Repeat number: 4 Indications: Overactive bladder; Mixed incontinence; Multi Vitamins oral tablet (1 source) Start: 11-19-2024 Multi Vitamins oral tablet 1 tab(s), Oral, Daily, 90 tab(s), Refill(s) 0 Start Date: 11/19/24 Status: Ordered Quantity: 90.0 Unit: tab(s) Repeat number: 1 Multiple Vitamins-Mineral s (Centrum Silver) chewable tablet (20 sources) Multiple Vitamins-Minerals (Centrum Silver) chewable tablet as directed Orally Active Multiple Vitamin s-Minerals (Centrum Silver) chewable tablet as directed Orally 0 Active ONE TOUCH VERIO TEST ST(NEW)100S (1 source) Start: 11-19-2024 ONE TOUCH VERI O TEST ST(NEW)100S ONE TOUCH VERIO TEST ST(NEW)100S, TEST ONCE DAILY, As Directed Start Date: 11/19/24 Status: Ordered Repeat number: 1 rosuvastatin calcium 20 mg oral tablet (20 sources) HMG-CoA Reductase Inhibitor Start: 09-01-2024 End: 11-30-2024 take 1 tablet by mouth at bedtime rosuvastatin (Crestor) 20 MG tablet Indications: Mixed hyperlipidemia (CMS/HCC) Take 1 tablet (20 mg) by mouth at bedtime 90 tablet 1 09/01/2024 11/30/2024 Active Start: 12-31-2023 End: 06-28-2024 take 1 tablet by mouth once daily rosuvastatin (Crestor) 20 MG tablet Indications: Mixed hyperlipidemia (CMS/HCC) Take 1 tablet (20 mg) by mouth Daily 90 tablet 1 12/31/2023 Active 12 hr timolol 5 mg/ml ophthalmic solution (20 sources) beta-Adrenergic Rayo Start: 12-13-2023 take 1 drop(s) into the eye(s) once daily timolol (Timoptic) 0.5 % ophthalmic solution INSTILL 1 DROP IN BOTH EYES EVERY DAY 12/13/2023 Active timolol (Betimol ) 0.5 % ophthalmic solution 1 (one) time each day at the same time Active timolol Opth 0.5% Hien 15 mL (1 source) Start: 11-19-2024 timolol Opth 0 .5% Hien 15 mL Refill(s) 0 Start Date: 11/19/24 Status: Ordered Repeat number: 1 tiZANidine 2 mg oral tablet (6 sources) Central alpha-2 Adrenergic Agonist End: 03-03-2024 tiZANidine (Zanaflex) 2 MG tablet TK 1 T PO TID PRF SPASM Oral for 30 03/03/2024 Discontinued (Therapy completed) traMADol hydrochloride 50 mg oral tablet (20 sources) Opioid Agonist Start: 11-19-2024 take 1-2 tablets by mouth every six hours as needed for pain traMADOL 50 mg Tab 1-2 tabs, Oral, q6hr, PRN Pain, Refills(s) 0 Start Date: 11/19/24 Status: Ordered Repeat number: 1 Start: 07-24-2024 End: 11-02-2024 take 1 tablet by mouth once daily traMADol (Ultram) 50 MG tablet Indications: Chronic pain syndrome Take 1 tablet (50 mg) by mouth Daily 30 tablet 2 10/03/2024 11/02/2024 Active Start: 04-15-2024 End: 07-14-2024 take 1 tablet by mouth once daily traMADol (Ultram) 50 MG tablet Indications: Chronic pain syndrome Take 1 tablet (50 mg) by mouth Daily 30 tablet 2 04/15/2024 07/14/2024 Active Start: 12-03-2023 End: 03-03-2024 take 1 tablet by mouth once daily traMADol (Ultram) 50 MG tablet Indications: Chronic pain syndrome Take 1 tablet (50 mg) by mouth Daily 90 tablet 12/03/2023 03/03/2024 Active Start: 05-29-2023 take 1 tablet by marlen th once daily traMADol (Ultram) 50 MG tablet Indications: Chronic pain syndrome TAKE 1 TABLET BY MOUTH DAILY 90 tablet 0 05/29/2023 Active ubidecarenone 30 mg oral cap joseph (20 sources) co-enzyme Q-10 3 0 MG capsule 1 (one) time each day at the same time. Active Completed/Discontinued Medications Medication Drug Class(es) Dates Sig (Normalized) Sig (Original) carBAMazepine 200 mg oral tablet (20 sources) Mood Stabilizer Start: 12-03-2023 End: 02-18-2025 take 1 tablet by mouth in the morning carBAMazepine (TEGretol) 200 MG tablet Indications: Seizure disorder (CMS/HCC) Take 1 tablet (200 mg) by mouth in the morning and 1 tablet (200 mg) before bedtime. 180 tablet 1 06/02/2024 11/20/2024 Discontinued (Reorder) take 1 tablet by mouth in the mo rning carBAMazepine (TEGretol) 200 MG tablet Take 200 mg by mouth in the morning and 200 mg before bedtime. 0 Active CARBAMAZEPINE 200MG TABLETS (1 source) Start: 11-19-2024 take 1 tablet by mouth at bedtime CARBAMAZEPINE 200MG TABLETS CARBAMAZEPINE 200MG TABLETS, TAKE 1 TABLET BY MOUTH EVERY MORNING AND 1 BEFORE BEDTIME, As Directed Start Date: 11/19/24 Status: Ordered Repeat number: 1 Problems Active Problems Problem Classification Problem Date Documented Da te Episodic/Chronic Congestive heart failure; nonhypertensive (20 sources) Chronic congestive heart failure; Translations: [Heart failure, unspecified] Onset: 05-22-2023 Resolved: 09-01-2024 05-22-2023 Chronic Deficiency and other anemia (6 sources) Anemia; Translations: [Anemia, unspecified] Onset: 09-01-2024 03-19-2024 Episodic Diabetes mellitus with complications (20 sources) Type 2 diabetes mellitus with diabetic neuropathy, unspecified; Translations: [Type 2 diabetes mellitus] Onset: 02-26-2022 07-25-2023 Chronic Diabetes mellitus without complication (20 sources) Type 2 diabetes mellitus without complication; Translations: [Type 2 diabetes mellitus without complications] Onset: 10-31-2022 10-31-2022 Chronic Disorders of lipid metabolism (20 sources) Hyperlipidemia, unspecified; Translations: [Hyperlipidemia] Onset: 12-22-2013 Chronic Epilepsy; convulsions (20 sources) Seizure disorder; Translations: [Epilepsy, unspecified, not intractable, without status epilepticus] Onset: 12-03-2023 12-03-2023 Chronic Essential hypertension (20 sources) Essential (primary) hypertension; Translations: [Essential hypertension] Onset: 12-22-2013 Chronic Genitourinary symptoms and ill-defined conditions (6 sources) Urinary incontinence; Translations: [Unspecified urinary incontinence] Onset: 09-01-2024 09-01-2024 Chronic Glaucoma (1 source) Glaucoma 11-19-2024 Chronic Osteoporosis (20 sources) Senile osteoporosis; Translations: [Age-related osteoporosis without current pathological fracture] Onset: 05-22-2023 05-22-2023 Chronic Other diseases of bladder and urethra (1 source) Detrusor overactivity; Translations: [Overactive bladder] Onset: 11-19-2024 Chronic Other diseases of bladder and urethra (1 source) Overactive bladder 11-19-2024 Chronic Other lower respiratory disease (2 sources) Cough; Translations: [Acute cough] 06-02-2024 Episodic Other nervous system disorders (20 sources) Chronic pain syndrome; Translations: [Chronic pain syndrome] Onset: 05-22-2023 05-22-2023 Chronic Other nutritional; endocrine; and metabolic disorders (4 sources) Body mass index 30+ - obesity; Translations: [Body mass index (BMI) 37.0-37.9, adult] Onset: 09-01-2024 09-01-2024 Chronic Other nutritional; endocrine; and metabolic disorders (4 sources) Obesity caused by energy imbalance; Translations: [Morbid (severe) obesity due to excess calories] Onset: 09-01-2024 09-01-2024 Chronic Other upper respiratory disease (20 sources) Rhinitis; Translations: [Chronic rhinitis] Onset: 03-03-2024 03-03-2024 Chronic Past or Other Problems Problem Classification Problem Date Documented Da te Episodic/Chronic Mood disorders (20 sources) Mood disorders Onset: 05-22-2023 05-22-2023 Other screening for suspected conditions (not mental disorders or infectious disease) (20 sources) Patient encounter status; Translations: [Encounter for screening mammogram for malignant neoplasm of breast] Onset: 05-22-2023 05-22-2023 Episodic Results Test Name Value Interpretation Reference Range Facility Ambulatory Visit Summaryon 0 11-19-2024 Ambulatory Visit Summary Ambulatory Visit Summary JELANI ACKERMAN :1950 Visit Date:11/19/2024 Ambulatory Visit Instructions Your Diagnosis Incontinent of urine Your Care Team Attending Physician - Coty Hopper PA-C Primary Care Physician - JEANNINE ALDANA CNP Referring Physician - JEANNINE ALDANA CNP This Is Your Medications List Misc Prescription (CARBAMAZEPINE 200MG TABLETS) Misc Prescription (ONE TOUCH VERIO TEST ST(NEW)100S) alendronate (alendronate 70 mg Tab) aspirin (aspirin 81 mg oral capsule) calcium-vitamin D (Oysco 500 with D 500 mg-200 intl units oral tablet) carvedilol (carvedilol 25 mg Tab) cholecalciferol (cholecalciferol 50 mcg (2000 intl units) oral tablet, disintegrating) empagliflozin (Jardiance 10 mg oral tablet) fluticasone nasal (fluticasone 93 mcg/inh nasal spray) furosemide (furosemide 40 mg Tab) gabapentin (gabapentin 300 mg Cap) glipiZIDE (glipiZIDE 5 mg Tab) guaifenesin (guaifenesin 1200 mg ER Tab) latanoprost ophthalmic (latanoprost Opth 0.005% Hien) losartan (losartan 50 mg Tab) metformin (metformin 500 mg ER Tab) multivitamin (Multi Vitamins oral tablet) timolol ophthalmic (timolol Opth 0.5% Hien 15 mL) tramadol (traMADOL 50 mg Tab) ubiquinone (Co-Q10 30 mg oral capsule) Procedures Performed Appendectomy, Breast, Cataract, Colonoscopy, Hernia, Hysterectomy. Discharge Vitals Temperature (Oral) 36.5 ???C Respiratory Rate 16 Blood Pressure 170/88 Height 162 cm Height 64 in Medications What How Much When Instructions Unchanged alendronate (alendronate 70 mg Tab) 1 Tablets By Mouth Every 7 days Unchanged aspirin (aspirin 81 mg oral capsule) By Mouth Every 24 hours Unchanged calcium-vitamin D (Oysco 500 with D 500 mg-200 intl units oral tablet) 1 Tablets TAKE 1 TABLET BY MOUTH EVERY MORNING AND 1 BEFORE BEDTIME Unchanged carvedilol (carvedilol 25 mg Tab) 1 Tablets By Mouth 2 times a day Unchanged cholecalciferol (cholecalciferol 50 mcg (2000 intl units) oral tablet, disintegrating) By Mouth Every day Unchanged empagliflozin (Jardiance 10 mg oral tablet) By Mouth Once a day (in the morning) Unchanged fluticasone nasal (fluticasone 93 mcg/ inh nasal spray) 2 times a day Unchanged furosemide (furosemide 40 mg Tab) 1 Tablets By Mouth Every day Unchanged gabapentin (gabapentin 300 mg Cap) 1 Capsules By Mouth 2 times a day Unchanged glipiZIDE (glipiZIDE 5 mg Tab) 1 Tablets By Mouth Every day Unchanged guaifenesin (guaifenesin 1200 mg ER Tab) By Mouth Every 12 hours Unchanged latanoprost ophthalmic (latanoprost Opth 0.005% Hien) 1 Drops Ophthalmic Once a day (at bedtime) Unchanged losartan (losartan 50 mg Tab) 1 Tablets By Mouth Every day Unchanged metformin (metformin 500 mg ER Tab) 1 Tablets By Mouth Every day Unchanged Misc Prescription (CARBAMAZEPINE 200MG TABLETS) As Directed TAKE 1 TABLET BY MOUTH EVERY MORNING AND 1 BEFORE BEDTIME Unchanged Misc Prescription (ONE TOUCH VERIO TEST ST(NEW)100S) As Directed TEST ONCE DAILY Unchanged multivitamin (Multi Vitamins oral tablet) 1 Tablets By Mouth Every day Unchanged timolol ophthalmic (timolol Opth 0.5% Hien 15 mL) Unchanged tramadol (traMADOL 50 mg Tab) 1-2 tabs By Mouth Every 6 hours as needed for Pain Unchanged ubiquinone (Co-Q10 30 mg oral capsule) By Mouth 3 times a day Allergies aspirin (Nausea) Problems Ongoing - Any problem that you are currently receiving treatment for. Acute glaucoma Acute type 2 diabetes mellitus with manifestations Benign essential HTN Patient Survey You may receive a survey via text or e-mail asking about your office visit. Please share your experience with us by completing your survey. We appreciate your feedback and thank you for choosing us for your care. Normal [facility] Urology Office/Clinic Noteon 11-19-2024 Urology Office/Clinic Note Urology Office/Clinic Note Chief Complaint incontinence HPI Staff 74 yr old female referred by Jeannine Aldana NP for incontinence of urine in female. History of Present Illness I have reviewed and verified the staff HPI to be accurate for this encounter. Review of Systems PHQ Score Initial Depression Screen Score: 0 SCORE no fever, chills, malaise, myalgia. no abdominal pain, nausea, vomiting. Physical Exam Vitals & Measurements T: 36.5 ???C(Oral) RR: 16 BP: 170/88 HT: 64 in HT: 162 cm General: Well developed, well nourished, in no acute distress. Assessment/Plan 74 y/o female [employer] referred by Jeannine Aldana NP for urinary incontinence 03/18/24 - GFR > 60 1. Mixed incontinence (N39.46: Mixed incontinence) BBSQ 27 PVR 13 ml today UA today w/ positive nitrites and trace protein only. Reviewed w/ pt. She denies sxs of infection today. UUI>LIAT. Shares she has been experiencing urinary urgency, frequency w/ leakage for years but symptoms have worsened in the past 6 months. UUI most bothersome. LITA w/ coughing, sneezing. Voids q1h. Nocturia x 3. Reports waking up in the morning w/ pad soaked at times. Wears pads daily, changes ~4x/day. Shares that pads/hygiene products are becoming too expensive for her. Denies use of bladder irritants or constipation. She does take Lasix 40 mg qd. Informed pt this could be contributing to her frequency/urgency. She is aware. She has a hx of DM2, reviewed her last A1c w/ her today. Discussed how uncontrolled DM can contribute to bothersome urinary sxs. Recommend strict control of DM. She verbalizes understanding. All questions answered. Today, we discussed pathophysiology of overactive bladder/UUI. Patient informed that first line treatment for her sxs is behavioral modifications, which includes timed voids, fluid balance, avoiding bladder stimulants such caffeine, pelvic floor muscle exercises. Pt was instructed on doing 3 Kegels when she gets the urge to void before going to the bathroom in an attempt to control urinary urges. Handouts provided. Discussed additional tx options for bothersome urinary sx including oral medications, Botox, SNM. Medication management includes anticholinergics and beta-3 agonists. Beta-3's (Myrbetriq/Gemtesa) are often preferable due to lower side effect profile, which include possible increase in blood pressure in a small minority of patients, however insurance does not always cover these meds. We also discussed anticholinergic medications which can have the side effects of dry eyes, dry mouth, constipation and rarely cognitive changes. Patient would like to trial Myrbetriq 25 mg qd. If Beta-3's not covered, will send anticholinergic. Pt understands if medications are not effective, we will consider next steps which could include cysto, urodynamics, Botox, SNM. Brief discussion today regarding Botox/SNM but did not go into elaborate detail. Handout provided for Botox. I instructed the patient to contact me immediately and discontinue medication if she has any bothersome side effects. ER if unable to void after 4-6 hours. Patient verbalizes understanding. All questions answered. -Start Myrbetriq 25mg PO daily -If cost prohibitive, will send Gemtesa 75mg PO daily -If both cost-prohibitive, will send Trospium 20mg PO daily -Increase water intake, avoid bladder irritants -Timed voids, double voids -Kegels/urge exercises -Avoid constipation -Strict DM control per PCP -F/U 3 months w/ PVR, call sooner if needed 2. OAB (overactive bladder) (N32.81: Overactive bladder) -See #1 Orders: [id number] Measure Post Void residual urine and/or bladder capacity by US- non-imaging Urnls Dip Stick Auto w/o Microscopy POC 79260 Follow-up With When Contact Information Coty Hopper PA-C, URL In 3 months Additional Instructions: w/ PVR Patient Education Urinary Incontinence Overactive Bladder, Adult Problem List/Past Medical History Ongoing Acute glaucoma Acute type 2 diabetes mellitus with manifestations Benign essential HTN Mixed incontinence OAB (overactive bladder) Historical No qualifying data Procedure/Surgical History Appendectomy, Breast, Cataract, Colonoscopy, Hernia, Hysterectomy. Medications alendronate 70 mg Tab, 70 mg= 1 tab(s), Oral, q7day aspirin 81 mg oral capsule, Oral, q24hr CARBAMAZEPINE 200MG TABLETS, As Directed carvedilol 25 mg Tab, 25 mg= 1 tab(s), Oral, BID cholecalciferol 50 mcg (2000 intl units) oral tablet, disintegrating, Oral, Daily Co-Q10 30 mg oral capsule, Oral, TID fluticasone 93 mcg/inh nasal spray, BID furosemide 40 mg Tab, 40 mg= 1 tab(s), Oral, Daily gabapentin 300 mg Cap, 300 mg= 1 cap(s), Oral, BID glipiZIDE 5 mg Tab, 5 mg= 1 tab(s), Oral, Daily guaifenesin 1200 mg ER Tab, Oral, q12hr Jardiance 10 mg oral tablet, Oral, qAM latanoprost Opth 0.005% Hien, 1 drop(s), OPTH, Once a day (at bedtime) losartan 50 mg Tab, 50 mg= 1 tab(s), Oral, Daily metformin 500 mg ER Tab, 500 mg= 1 tab(s), Oral, (more content not included)... [facility] Comment on above: Result Comment: Elec tronically Signed By: Coty Hopper PA-C\.br\Date and Time Signed: 11/19/24 14:36 EDT ALL CBC WITH AUTO DIFFon BASOPHILS ABSOLUTE AUTO 0.1 [facility] Basophils/100 WBC (Bld) 0.8 % 0.2 - 2.0 % [facility] Eosinophils/100 WBC (Bld) 1 % 0.9 - 7.0 % [facility] Erythrocyte distribution width (RBC) [Ratio] 16 % High 11.0 - 15.0 % [facility] Hematocrit (Bld) [Volume fraction] 33.5 % Low 36.0 - 48.0 % [facility] Hemoglobin (Bld) [Mass/Vol] 10.8 g/dL Low 12.0 - 16.0 g/dL [facility] IMMATURE GRANULOCYTES ABS AUTO 0.01 [facility] Immature granulocytes/100 WBC (Bld) 0.1 % 0.0 - 0.5 % [facility] Interpretation and review of laboratory results Abnormal [facility] LYMPHOCYTES ABSOLUTE AUTO 2.3 [facility] Lymphocytes/100 WBC (Bld) 31.1 % 20.5 - 60.0 % [facility] MCH (RBC) [Entitic mass] 27.4 pg 26.7 - 34.0 pg [facility] MCHC (RBC) [Mass/Vol] 32.2 g/dL 29.9 - 35.2 g/dL [facility] MCV (RBC) [Entitic vol] 85 fL 81.0 - 99.0 fL [facility] MONOCYTES ABSOLUTE AUTO 0.5 [facility] Monocytes/100 WBC (Bld) 7.4 % 1.7 - 12.0 % [facility] NEUTROPHILS ABSOLUTE AUTO 4.4 [facility] Neutrophils/100 WBC (Bld) 59.6 % 43.0 - 75.0 % [facility] Platelet mean volume (Bld) [Entitic vol] 9.1 fL Low 9.5 - 13.5 fL [facility] TBH EO # 0.1 [facility] PLT 247 [facility] RBC 3.94 Low [facility] WBC 7.3 [facility] ALL CBC WITH AUTO DIFFon BASOPHILS ABSOLUTE AUTO 0.1 [facility] Basophils/100 WBC (Bld) 0.7 % 0.2 - 2.0 % [facility] Eosinophils/100 WBC (Bld) 1.2 % 0.9 - 7.0 % [facility] Erythrocyte distribution width (RBC) [Ratio] 16.2 % High 11.0 - 15.0 % [facility] Hematocrit (Bld) [Volume fraction] 33.4 % Low 36.0 - 48.0 % [facility] Hemoglobin (Bld) [Mass/Vol] 11.0 g/dL Low 12.0 - 16.0 g/dL [facility] IMMATURE GRANULOCYTES ABS AUTO 0.02 [facility] Immature granulocytes/100 WBC (Bld) 0.2 % 0.0 - 0.5 % [facility] Interpretation and review of laboratory results Abnormal [facility] LYMPHOCYTES ABSOLUTE AUTO 2.7 [facility] Lymphocytes/100 WBC (Bld) 32.7 % 20.5 - 60.0 % [facility] MCH (RBC) [Entitic mass] 28.1 pg 26.7 - 34.0 pg [facility] MCHC (RBC) [Mass/Vol] 32.9 g/dL 29.9 - 35.2 g/dL [facility] MCV (RBC) [Entitic vol] 85.4 fL 81.0 - 99.0 fL [facility] MONOCYTES ABSOLUTE AUTO 0.7 [facility] Monocytes/100 WBC (Bld) 7.9 % 1.7 - 12.0 % [facility] NEUTROPHILS ABSOLUTE AUTO 4.7 [facility] Neutrophils/100 WBC (Bld) 57.3 % 43.0 - 75.0 % [facility] Platelet mean volume (Bld) [Entitic vol] 9.3 fL Low 9.5 - 13.5 fL [facility] TBH EO # 0.1 [facility] PLT 234 [facility] RBC 3.91 Low [facility] WBC 8.2 [facility] CBC AUTO DIFFon 02-21-2022 BASO # 0.1 103/ul Normal 0.0-0.1 [facility] Comment on above: Performed By: #### C BC #### [facility] [address] [place] [address] Dr. Colette Dominguez Basophils/100 WBC (Bld) 0.6 % Normal 0.2-2.0 [facility] Comment on above: Performed By: #### C BC #### [facility] [address] [address] [address] Colette Dominguez EO # 0.1 103/ul Normal 0.0-0.7 [facility] Comment on above: Performed By: #### C BC #### [facility] [address] [place] [address] Dr. Colette Dominguez Eosinophils/100 WBC (Bld) 0.8 % Critically low 0.9-7.0 [facility] Comment on above: Performed By: #### C BC #### [facility] [address] [place] [address] Dr. Colette Dominguez Erythrocyte distribution width (RBC) [Ratio] 15.9 % Critically high 11.0-15.0 [facility] Comment on above: Performed By: #### C BC #### [facility] [address] [place] [address] Dr. Colette Dominguez Hematocrit (Bld) [Volume fraction] 32.7 % Critically low 36.0-48.0 [facility] Comment on above: Performed By: #### C BC #### [facility] [address] [place] [address] Dr. Colette Dominguez Hemoglobin (Bld) [Mass/Vol] 10.5 g/dL Critically low 12.0-16.0 [facility] Comment on above: Performed By: #### C BC #### [facility] [address] [place] [address] Dr. Colette Dominguez IG # 0.03 10e3/ul Normal 0.00-0.03 [facility] Comment on above: Performed By: #### C BC #### [facility] [address] [place] [address] Dr. Colette Dominguez IG % 0.4 % Normal 0.0-0.5 [facility] Comment on above: Performed By: #### C BC #### [facility] [address] [place] [address] Dr. Colette Dominguez LYMPH # 2.6 103/ul Normal 1.2-3.8 [facility] Comment on above: Performed By: #### C BC #### [facility] [address] [place] [address] Dr. Colette Dominguez Lymphocytes/100 WBC (Bld) 32.8 % Normal 20.5-60.0 [facility] Comment on above: Performed By: #### C BC #### [facility] [address] [place] [address] Dr. Colette Dominguez MANUAL DIFF REQ NO Normal [facility] Comment on above: Performed By: #### C BC #### [facility] [address] [place] [address] Dr. Colette Dominguez MCH (RBC) [Entitic mass] 27.3 pg Normal 26.7-34.0 [facility] Comment on above: Performed By: #### C BC #### [facility] [address] [place] [address] Dr. Colette Dominguez MCHC (RBC) [Mass/Vol] 32.1 g/dL Normal 29.9-35.2 [facility] Comment on above: Performed By: #### C BC #### [facility] [address] [place] [address] Dr. Colette Dominguez MCV (RBC) [Entitic vol] 84.9 fL Normal 81.0-99.0 [facility] Comment on above: Performed By: #### C BC #### [facility] [address] [place] [address] Dr. Colette Dominguez MONO # 0.8 103/ul Normal 0.3-0.8 [facility] Comment on above: Performed By: #### C BC #### [facility] [address] [place] [address] Dr. Colette Dominguez Monocytes/100 WBC (Bld) 9.7 % Normal 1.7-12.0 [facility] Comment on above: Performed By: #### C BC #### [facility] [address] [place] [address] Dr. Colette Dominguez NEUT # 4.3 103/ul Normal 1.4-6.5 [facility] Comment on above: Performed By: #### C BC #### [facility] [address] [place] [address] Dr. Colette Dominguez Neutrophils/100 WBC (Bld) 55.7 % Normal 43.0-75.0 [facility] Comment on above: Performed By: #### C BC #### [facility] [address] [place] [address] Dr. Colette Dominguez Platelet mean volume (Bld) [Entitic vol] 9.1 fL Critically low 9.5-13.5 [facility] Comment on above: Performed By: #### C BC #### [facility] [address] [address] [address] Colette Dominguez PLT 256 103/ul Normal 150-450 [facility] Comment on above: Performed By: #### C BC #### [facility] [address] [address] [address] Colette Dominguez RBC 3.85 106/ul Critically low 4.20-5.40 [facility] Comment on above: Performed By: #### C BC #### [facility] [address] [address] [address] Colette Dominguez WBC 7.8 103/ul Normal 4.0-11.0 [facility] Comment on above: Performed By: #### C BC #### [facility] [address] [place] [address] Dr. Colette Dominguez GLYCOHEMOGLOBIN A1Con 2021 ADA RECOMMENDATION SEE BELOW Normal [facility] Comment on above: Result Comment: ADA RECOMMENDED LIMIT 4.0 - 6.0 ADA THERAPEUTIC TARGET < 7.0 ACTION SUGGESTED > 7.0 Performed By: #### A 1C #### [facility] [address] [place] [address] Dr. Colette Dominguez Glucose [Mass/Vol] 154 mg/dL Normal [facility] Comment on above: Performed By: #### A 1C #### [facility] [address] [place] [address] Dr. Colette Dominguez HbA1c (Bld) [Mass fraction] 7.0 % Critically high 4.5-6.2 [facility] Comment on above: Performed By: #### A 1C #### [facility] [address] [place] [address] Dr. Colette Dominguez LIPID PROFILEon 02-21-2022 CHOL-HDL RATIO NORM SEE BELOW Normal [facility] Comment on above: Result Comment: 3.3 - 4.4 LOW RISK 4.4 - 7.1 AVERAGE RISK 7.1 - 11.0 MODERATE RISK >11.0 HIGH RISK Performed By: #### C MP, LIPID #### [facility] [address] [place] [address] Dr. Colette Dominguez Cholesterol [Mass/Vol] 166 mg/dL Normal <=200 [facility] Comment on above: Performed By: #### C MP, LIPID #### [facility] [address] [address] [address] Colette Dominguez Cholesterol in HDL [Mass/Vol] 71 mg/dL Critically high 40-60 [facility] Comment on above: Performed By: #### C MP, LIPID #### [facility] [address] [address] [address] Colette Dominguez Cholesterol in LDL [Mass/Vol] 86.4 mg/dL Normal [facility] Comment on above: Performed By: #### C MP, LIPID #### [facility] [address] [address] [address] Colette Dominguez Cholesterol.total/Ch olesterol in HDL [Mass ratio] 2.3 {ratio} Normal [facility] Comment on above: Performed By: #### C MP, LIPID #### [facility] [address] [address] [address] Colette Dominguez HDL NORMAL > or = 60 mg/dl - LO W CARDIOVASCULAR RISK <40 mg/dl - HIGH CARDIOVASCULAR RISK Normal [facility] Comment on above: Performed By: #### C MP, LIPID #### [facility] [address] [address] [address] Colette Dominguez LDL CALC NORMAL SEE BELOW Normal [facility] Comment on above: Result Comment: <100 mg/dl OPTIMAL 100 - 129 mg/dl NEAR OR ABOVE OPTIMAL 130 - 159 mg/dl BORDERLINE HIGH 160 - 189 mg/dl HIGH >190 mg/dl VERY HIGH Performed By: #### C MP, LIPID #### [facility] [address] [address] [address] Colette Dominguez Triglyceride [Mass/Vol] 43 mg/dL Normal <=150 [facility] Comment on above: Performed By: #### C MP, LIPID #### [facility] [address] [address] [address] Colette Dominguez VLDL CALC 8.6 mg/dL Normal [facility] Comment on above: Performed By: #### C MP, LIPID #### [facility] [address] [address] [address] Colette Dominguez PROF 14(COMP METB)on 022 Albumin [Mass/Vol] 3.4 g/dL Normal 3.4-5.0 [facility] Comment on above: Performed By: #### C MP, LIPID #### [facility] [address] [place] [address] Dr. Colette Dominguez Albumin/Globulin [Mass ratio] 0.8 {ratio} Normal [facility] Comment on above: Performed By: #### C MP, LIPID #### [facility] [address] [place] [address] Dr. Colette Dominguez ALP [Catalytic activity/Vol] 88 U/L Normal 46-116 [facility] Comment on above: Performed By: #### C MP, LIPID #### [facility] [address] [place] [address] Dr. Colette Dominguez ALT [Catalytic activity/Vol] 24 U/L Normal 14-59 [facility] Comment on above: Performed By: #### C MP, LIPID #### [facility] [address] [place] [address] Dr. Colette Dominguez Anion gap [Moles/Vol] 8.7 mmol/L Normal [facility] Comment on above: Performed By: #### C MP, LIPID #### [facility] [address] [place] [address] Dr. Colette Dominguez AST [Catalytic activity/Vol] 15 U/L Normal 15-37 [facility] Comment on above: Performed By: #### C MP, LIPID #### [facility] [address] [place] [address] Dr. Colette Dominguez Bilirubin [Mass/Vol] 0.2 mg/dL Normal 0.2-1.0 [facility] Comment on above: Performed By: #### C MP, LIPID #### [facility] [address] [place] [address] Dr. Colette Dominguez Calcium [Mass/Vol] 9.0 mg/dL Normal 8.5-10.1 [facility] Comment on above: Performed By: #### C MP, LIPID #### [facility] [address] [place] [address] Dr. Colette Dominguez Chloride [Moles/Vol] 105 mmol/L Normal 98-107 [facility] Comment on above: Performed By: #### C MP, LIPID #### [facility] [address] [place] [address] Dr. Colette Dominguez CO2 [Moles/Vol] 27.3 mmol/L Normal 21.0-32.0 [facility] Comment on above: Performed By: #### C MP, LIPID #### [facility] [address] [place] [address] Dr. Colette Dominguez Creatinine [Mass/Vol] 0.77 mg/dL Normal 0.55-1.02 [facility] Comment on above: Performed By: #### C MP, LIPID #### [facility] [address] [place] [address] Dr. Colette Dominguez EGFR-AF BAHRAINI >60 Normal >=60 [facility] Comment on above: Result Comment: Prev iously reported as: (blank) On 02/21/2022 22:14 By [email or web address] Performed By: #### C MP, LIPID #### [facility] [address] [place] [address] Dr. Colette Dominguez EGFR-NON AF BAHRAINI >60 Normal >=60 [facility] Comment on above: Result Comment: Prev iously reported as: (blank) On 02/21/2022 22:14 By [email or web address] Performed By: #### C MP, LIPID #### [facility] [address] [place] [address] Dr. Colette Dominguez Globulin (S) [Mass/Vol] 4.1 g/dL Normal [facility] Comment on above: Performed By: #### C MP, LIPID #### [facility] [address] [place] [address] Dr. Colette Dominguez Glucose [Mass/Vol] 112 mg/dL Critically high 74-106 [facility] Comment on above: Performed By: #### C MP, LIPID #### [facility] [address] [place] [address] Dr. Colette Dominguez Potassium [Moles/Vol] 4.0 mmol/L Normal 3.5-5.1 [facility] Comment on above: Performed By: #### C MP, LIPID #### [facility] [address] [place] [address] Dr. Colette Dominguez Protein [Mass/Vol] 7.5 g/dL Normal 6.4-8.2 [facility] Comment on above: Performed By: #### C MP, LIPID #### [facility] [address] [place] [address] Dr. Colette Dominguez Sodium [Moles/Vol] 137 mmol/L Normal 136-145 [facility] Comment on above: Performed By: #### C MP, LIPID #### [facility] [address] [place] [address] Dr. Colette Dominguez Urea nitrogen [Mass/Vol] 17.0 mg/dL Normal 7.0-18.0 [facility] Comment on above: Performed By: #### C MP, LIPID #### [facility] [address] [place] [address] Dr. Colette Dominguez Urea nitrogen/Creatinine [Mass ratio] 22.1 mg/mg Normal [facility] Comment on above: Performed By: #### C MP, LIPID #### [facility] [address] [place] [address] Dr. Colette Dominguez CBC AUTO DIFFon 08-16-2021 BASO # 0.1 103/ul Normal 0.0-0.1 [facility] Comment on above: Performed By: #### C BC #### [facility] [address] [place] [address] Dr. Colette Dominguez Basophils/100 WBC (Bld) 0.6 % Normal 0.2-2.0 [facility] Comment on above: Performed By: #### C BC #### [facility] [address] [place] [address] Dr. Colette Dominguez EO # 0.1 103/ul Normal 0.0-0.7 [facility] Comment on above: Performed By: #### C BC #### [facility] [address] [place] [address] Dr. Colette Dominguez Eosinophils/100 WBC (Bld) 1.2 % Normal 0.9-7.0 [facility] Comment on above: Performed By: #### C BC #### [facility] [address] [place] [address] Dr. Colette Dominguez Erythrocyte distribution width (RBC) [Ratio] 15.6 % Critically high 11.0-15.0 [facility] Comment on above: Performed By: #### C BC #### [facility] [address] [place] [address] Dr. Colette Dominguez Hematocrit (Bld) [Volume fraction] 34.6 % Critically low 36.0-48.0 [facility] Comment on above: Performed By: #### C BC #### [facility] [address] [place] [address] Dr. Colette Dominguez Hemoglobin (Bld) [Mass/Vol] 11.0 g/dL Critically low 12.0-16.0 [facility] Comment on above: Performed By: #### C BC #### [facility] [address] [place] [address] Dr. Colette Dominguez IG # 0.03 10e3/ul Normal 0.00-0.03 [facility] Comment on above: Performed By: #### C BC #### [facility] [address] [place] [address] Dr. Colette Dominguez IG % 0.3 % Normal 0.0-0.5 [facility] Comment on above: Performed By: #### C BC #### [facility] [address] [place] [address] Dr. Colette Dominguez LYMPH # 2.6 103/ul Normal 1.2-3.8 [facility] Comment on above: Performed By: #### C BC #### [facility] [address] [place] [address] Dr. Colette Dominguez Lymphocytes/100 WBC (Bld) 25.8 % Normal 20.5-60.0 [facility] Comment on above: Performed By: #### C BC #### [facility] [address] [place] [address] Dr. Colette Dominguez MANUAL DIFF REQ NO Normal [facility] Comment on above: Performed By: #### C BC #### [facility] [address] [place] [address] Dr. Colette Dominguze MCH (RBC) [Entitic mass] 27.3 pg Normal 26.7-34.0 [facility] Comment on above: Performed By: #### C BC #### [facility] [address] [place] [address] Dr. Colette Dominguez MCHC (RBC) [Mass/Vol] 31.8 g/dL Normal 29.9-35.2 [facility] Comment on above: Performed By: #### C BC #### [facility] [address] [place] [address] Dr. Colette Dominguez MCV (RBC) [Entitic vol] 85.9 fL Normal 81.0-99.0 [facility] Comment on above: Performed By: #### C BC #### [facility] [address] [place] [address] Dr. Colette Dominguez MONO # 0.7 103/ul Normal 0.3-0.8 [facility] Comment on above: Performed By: #### C BC #### [facility] [address] [place] [address] Dr. Colette Dominguez Monocytes/100 WBC (Bld) 6.6 % Normal 1.7-12.0 [facility] Comment on above: Performed By: #### C BC #### [facility] [address] [place] [address] Dr. Colette Dominguez NEUT # 6.7 103/ul Critically high 1.4-6.5 [facility] Healthcare Comment on above: Performed By: #### C BC #### [facility] [address] [place] [address] Dr. Colette Dominguze Neutrophils/100 WBC (Bld) 65.5 % Normal 43.0-75.0 [facility] Comment on above: Performed By: #### C BC #### [facility] [address] [place] [address] Dr. Colette Dominguez Platelet mean volume (Bld) [Entitic vol] 10.1 fL Normal 9.5-13.5 [facility] Comment on above: Performed By: #### C BC #### [facility] [address] [place] [address] Dr. Colette Dominguez PLT 260 103/ul Normal 150-450 [facility] Comment on above: Performed By: #### C BC #### [facility] [address] [address] [address] Colette Dominguez RBC 4.03 106/ul Critically low 4.20-5.40 [facility] Comment on above: Performed By: #### C BC #### [facility] [address] [place] [address] Dr. Colette Dominguez WBC 10.2 103/ul Normal 4.0-11.0 [facility] Comment on above: Performed By: #### C BC #### [facility] [address] [address] [address] Colette Dominguez GLYCOHEMOGLOBIN A1Con 2021 ADA RECOMMENDATION ADA THERAPEUTIC TARGET 6.0 - 7.0 ACTION SUGGESTED > 7.0 Normal [facility] Comment on above: Performed By: #### A 1C #### [facility] [address] [place] [address] Dr. Colette Dominguez Glucose [Mass/Vol] 151 mg/dL Normal [facility] Comment on above: Performed By: #### A 1C #### [facility] [address] [place] [address] Dr. Colette Dominguez HbA1c (Bld) [Mass fraction] 6.9 % Critically high <=6.0 [facility] Comment on above: Performed By: #### A 1C #### [facility] [address] [place] [address] Dr. Colette Dominguez LIPID PROFILEon 08-16-2021 CHOL-HDL RATIO NORM SEE BELOW Normal [facility] Comment on above: Result Comment: 3.3 - 4.4 LOW RISK 4.4 - 7.1 AVERAGE RISK 7.1 - 11.0 MODERATE RISK >11.0 HIGH RISK Performed By: #### C MP, LIPID #### [facility] [address] [address] [address] Colette Dominguez Cholesterol [Mass/Vol] 161 mg/dL Normal <=200 [facility] Comment on above: Performed By: #### C MP, LIPID #### [facility] [address] [address] [address] Colette Dominguez Cholesterol in HDL [Mass/Vol] 67 mg/dL Normal [facility] Comment on above: Performed By: #### C MP, LIPID #### [facility] [address] [address] [address] Colette Dominguez Cholesterol in LDL [Mass/Vol] 84.6 mg/dL Normal [facility] Comment on above: Performed By: #### C MP, LIPID #### [facility] [address] [place] [address] Dr. Colette Dominguez Cholesterol.total/Ch olesterol in HDL [Mass ratio] 2.4 {ratio} Normal [facility] Comment on above: Performed By: #### C MP, LIPID #### [facility] [address] [address] [address] Colette Dominguez HDL NORMAL > or = 60 mg/dl - LO W CARDIOVASCULAR RISK <40 mg/dl - HIGH CARDIOVASCULAR RISK Normal [facility] Comment on above: Performed By: #### C MP, LIPID #### [facility] [address] [address] [address] Colette Dominguez LDL CALC NORMAL SEE BELOW Normal [facility] Comment on above: Result Comment: <100 mg/dl OPTIMAL 100 - 129 mg/dl NEAR OR ABOVE OPTIMAL 130 - 159 mg/dl BORDERLINE HIGH 160 - 189 mg/dl HIGH >190 mg/dl VERY HIGH Performed By: #### C MP, LIPID #### [facility] [address] [address] [address] Colette Dominguez Triglyceride [Mass/Vol] 47 mg/dL Normal <=150 [facility] Comment on above: Performed By: #### C MP, LIPID #### [facility] [address] [address] [address] Colette Dominguez VLDL CALC 9.4 mg/dL Normal [facility] Comment on above: Performed By: #### C MP, LIPID #### [facility] [address] [place] [address] Dr. Colette Dominguez MICROALBUMIN, RAND URon 03- mALB 1.5 mg/L Normal <=30.0 [facility] Comment on above: Performed By: #### M ALBR #### [facility] [address] [place] [address] Dr. Colette Dominguez PROF 14(COMP METB)on 022 Albumin [Mass/Vol] 3.6 g/dL Normal 3.5-5.0 [facility] Comment on above: Performed By: #### C MP, LIPID #### [facility] [address] [place] [address] Dr. Colette Dominguez Albumin/Globulin [Mass ratio] 0.8 {ratio} Normal [facility] Comment on above: Performed By: #### C MP, LIPID #### [facility] [address] [place] [address] Dr. Colette Dominguez ALP [Catalytic activity/Vol] 91 U/L Normal 38-126 [facility] Comment on above: Performed By: #### C MP, LIPID #### [facility] [address] [place] [address] Dr. Colette Dominguez ALT [Catalytic activity/Vol] 20 U/L Normal 9-52 [facility] Comment on above: Performed By: #### C MP, LIPID #### [facility] [address] [place] [address] Dr. Colette Dominguez Anion gap [Moles/Vol] 8.7 mmol/L Normal [facility] Comment on above: Performed By: #### C MP, LIPID #### [facility] [address] [place] [address] Dr. Colette Dominguez AST [Catalytic activity/Vol] 15 U/L Normal 14-36 [facility] Comment on above: Performed By: #### C MP, LIPID #### [facility] [address] [place] [address] Dr. Colette Dominguez Bilirubin [Mass/Vol] 0.2 mg/dL Normal 0.2-1.3 [facility] Comment on above: Performed By: #### C MP, LIPID #### [facility] [address] [place] [address] Dr. Colette Dominguez Calcium [Mass/Vol] 9.8 mg/dL Normal 8.4-10.2 [facility] Comment on above: Performed By: #### C MP, LIPID #### [facility] [address] [place] [address] Dr. Colette Dominguez Chloride [Moles/Vol] 104 mmol/L Normal 98-107 [facility] Comment on above: Performed By: #### C MP, LIPID #### [facility] [address] [place] [address] Dr. Colette Dominguez CO2 [Moles/Vol] 29.3 mmol/L Normal 22.0-30.0 [facility] Comment on above: Performed By: #### C MP, LIPID #### [facility] [address] [place] [address] Dr. Colette Dominguez Creatinine [Mass/Vol] 0.96 mg/dL Normal 0.52-1.04 [facility] Comment on above: Performed By: #### C MP, LIPID #### [facility] [address] [place] [address] Dr. Colette Dominguez EGFR-AF BAHRAINI >60 Normal >=60 [facility] Comment on above: Performed By: #### C MP, LIPID #### [facility] [address] [place] [address] Dr. Colette Dominguez EGFR-NON AF BAHRAINI 57 mL/min/1.73m2 Critically low >=60 [facility] Comment on above: Performed By: #### C MP, LIPID #### [facility] [address] [place] [address] Dr. Colette Dominguez Globulin (S) [Mass/Vol] 4.3 g/dL Normal [facility] Comment on above: Performed By: #### C MP, LIPID #### [facility] [address] [place] [address] Dr. Colette Dominguez Glucose [Mass/Vol] 120 mg/dL Critically high 74-106 [facility] Comment on above: Performed By: #### C MP, LIPID #### [facility] [address] [address] [address] Colette Dominguez Potassium [Moles/Vol] 4.0 mmol/L Normal 3.4-5.0 [facility] Comment on above: Performed By: #### C MP, LIPID #### [facility] [address] [place] [address] Dr. Colette Dominguez Protein [Mass/Vol] 7.9 g/dL Normal 6.1-8.2 [facility] Comment on above: Performed By: #### C MP, LIPID #### [facility] [address] [place] [address] Dr. Colette Dominguez Sodium [Moles/Vol] 138 mmol/L Normal 137-145 [facility] Comment on above: Performed By: #### C MP, LIPID #### [facility] [address] [place] [address] Dr. Colette Dominguez Urea nitrogen [Mass/Vol] 23.0 mg/dL Critically high 7.0-17.0 [facility] Comment on above: Performed By: #### C MP, LIPID #### [facility] [address] [place] [address] Dr. Colette Dominguez Urea nitrogen/Creatinine [Mass ratio] 24.0 mg/mg Normal [facility] Comment on above: Performed By: #### C MP, LIPID #### [facility] [address] [place] [address] Dr. Colette Dominguez Vital Signs Date Time Vital Sign Value Performing Clinician Ferdinand velazquez 06-02-2024 08:40-0500 Body height 165.1 cm Donita Valle [employer] Work Phone: [facility] 06-02-2024 08:40-0500 Body mass index (BMI) [Ratio] 37.61 kg/m2 Donita Valle [employer] Work Phone: [facility] 06-02-2024 08:40-0500 Body temperature 96.4 [degF] Donita Valle [employer] Work Phone: [facility] 06-02-2024 08:40-0500 Body weight 102.51 kg Donita Valle [employer] Work Phone: [facility] 06-02-2024 08:40-0500 Diastolic blood pressure 78 mm[Hg] Donita Valle [employer] Work Phone: [facility] 06-02-2024 08:40-0500 Heart rate 77 /min Donita Valle [employer] Work Phone: [facility] 06-02-2024 08:40-0500 Respiratory rate 16 /min Donita Valle [employer] Work Phone: [facility] 06-02-2024 08:40-0500 SaO2% (BldA) [Mass fraction] 97 % Donita Valle [employer] Work Phone: [facility] 06-02-2024 08:40-0500 Systolic blood pressure 136 mm[Hg] Donita Valle [employer] Work Phone: [facility] 03-03-2024 09:36-0400 Body height 165.1 cm Donita Valle [employer] Work Phone: [facility] 03-03-2024 09:36-0400 Body mass index (BMI) [Ratio] 38.77 kg/m2 Donita Valle [employer] Work Phone: [facility] 03-03-2024 09:36-0400 Body temperature 98.4 [degF] Dnoita Valle [employer] Work Phone: [facility] 03-03-2024 09:36-0400 Body weight 105.69 kg Donita Valle [employer] Work Phone: [facility] 03-03-2024 09:36-0400 Diastolic blood pressure 74 mm[Hg] Donita Valle [employer] Work Phone: [facility] 03-03-2024 09:36-0400 Heart rate 70 /min Donita Escobedok [employer] Work Phone: [facility] Comment on above: 97% O2 03-03-2024 09:36-0400 Systolic blood pressure 144 mm[Hg] Donita Escobedok [employer] Work Phone: [facility] Encounters Encounter Date Encounter Type Care Provider Facility Start: 02-25-2025 ambulatory Coty Hopper Facility:[facility] Start: 11-20-2024 End: 11-20-2024 Refill Jeanninemarlon Aldana [employer] Work Phone: [facility] Comment on above: Type 2 diabetes odette itus with diabetic polyneuropathy, without long-term current use of insulin ([facility]); Seizure disorder ([facility]) Start: 11-19-2024 End: 11-19-2024 ambulatory JEANNINE ALDANA Facility:[facility] Start: 11-19-2024 End: 11-19-2024 Patient encounter procedure Coty Hopper [facility] Start: 10-03-2024 End: 10-03-2024 Telephone encounter Jeannine Aldana [employer] Work Phone: [facility] Start: 10-01-2024 End: 10-03-2024 Refill Ciaran Hardin MD Work Phone: [facility] Comment on above: Chronic pain syndrom e Start: 09-16-2024 End: 09-16-2024 Refill Jeannine Aldana [employer] Work Phone: [facility] Comment on above: Age-related osteopor osis without current pathological fracture ([facility]/HCC) Start: 09-02-2024 ambulatory Coty Hopper Facility:[facility] Start: 09-01-2024 End: 09-01-2024 ambulatory JEANNINE SANDRA Not Available Start: 08-28-2024 End: 08-28-2024 Refill Ciaran Hardin MD Work Phone: [facility] Comment on above: Chronic pain syndrom e Start: 07-23-2024 End: 07-24-2024 Refill Donita Valle [employer] Work Phone: [facility] Comment on above: Chronic pain syndrom e Start: 07-14-2024 End: 07-14-2024 Refill Donita Valle [employer] Work Phone: [facility] Comment on above: Type 2 diabetes odette itus with diabetic polyneuropathy, without long-term current use of insulin (CMS/HCC) Start: 06-23-2024 End: 06-23-2024 Refill Donita Valle [employer] Work Phone: [facility] Start: 06-23-2024 End: 06-24-2024 Refill Donita Valle [employer] Work Phone: [facility] Comment on above: Age-related osteopor osis without current pathological fracture (CMS/HCC) Start: 06-16-2024 End: 06-23-2024 Refill Catarina Parks MA [facility] Comment on above: Type 2 diabetes odette itus with diabetic polyneuropathy, without long-term current use of insulin (CMS/[facility]) (Primary Dx); Mixed hyperlipidemia (CMS/HCC) Start: 06-02-2024 End: 06-02-2024 Bamboo flowsheet Donita Valle [employer] Work Phone: [facility] Start: 06-02-2024 End: 06-02-2024 Bamboo flowsheet Donita Valle [employer] Work Phone: [facility] Start: 06-02-2024 End: 06-02-2024 Office outpatient visit 15 minutes Donita Valle [employer] Work Phone: [facility] Comment on above: Encounter for screen ing mammogram for malignant neoplasm of breast (Primary Dx); Type 2 diabetes mellitus with diabetic polyneuropathy, without long-term current use of insulin ([facility] Age-related osteoporosis without current pathological fracture ([facility]); Seizure disorder ([facility]); Essential hypertension ([facility]); Rhinitis, unspecified type; Chronic heart failure with preserved ejection fraction ([facility]); Chronic pain syndrome; Acute cough; Mixed hyperlipidemia ([facility]) Start: 06-02-2024 End: 06-02-2024 ambulatory DONITA VALLE Not Available Start: 05-26-2024 End: 05-26-2024 Refill Donita Valle [employer] Work Phone: [facility] Comment on above: Essential hypertensi on ([facility]) Start: 05-24-2024 End: 05-26-2024 Refill Donita Valle [employer] Work Phone: [facility] Comment on above: Chronic heart failur e with preserved ejection fraction ([facility]) Start: 05-14-2024 End: 05-14-2024 Refill Donita Valle [employer] Work Phone: [facility] Comment on above: Type 2 diabetes odette itus with diabetic polyneuropathy, without long-term current use of insulin ([facility]) Start: 04-18-2024 End: 04-18-2024 Clinisync Result Encounter Donita Valle [employer] Work Phone: [facility] Unsolicited Start: 04-18-2024 End: 04-18-2024 Clinisync Result Encounter Donita Valle [employer] Work Phone: [facility] Unsolicited Start: 04-15-2024 End: 04-15-2024 Refill Donita Valle [employer] Work Phone: [facility] Comment on above: Chronic pain syndrom e Start: 03-19-2024 End: 03-19-2024 Orders Only Donita Valle [employer] Work Phone: [facility] Comment on above: Anemia, unspecified type (Primary Dx) Start: 03-18-2024 End: 03-18-2024 Clinisync Result Encounter Donita Escobedok [employer] Work Phone: [facility] Unsolicited Start: 03-18-2024 End: 03-18-2024 Clinisync Result Encounter Donita Escobedok [employer] Work Phone: [facility] Unsolicited Start: 03-03-2024 End: 03-03-2024 Bamboo flowsheet Donita Oatestrick [employer] Work Phone: [facility] Start: 03-03-2024 End: 03-03-2024 Bamboo flowsheet Donita Oatestrick [employer] Work Phone: [facility] Start: 03-03-2024 End: 03-03-2024 ambulatory DONITA VALLE Not Available Start: 03-03-2024 End: 03-03-2024 Office outpatient visit 15 minutes Donita Escobedok [employer] Work Phone: [facility] Comment on above: Type 2 diabetes odette itus with diabetic polyneuropathy, without long-term current use of insulin (CMS/HCC) (Primary Dx); Essential hypertension (CMS/HCC); Mixed hyperlipidemia (CMS/HCC); Rhinitis, unspecified type Start: 02-21-2024 End: 02-22-2024 Reflety Hardin MD Work Phone: [facility] Comment on above: Chronic heart failur e with preserved ejection fraction (CMS/HCC) Start: 2024 End: 02-09-2024 Conner Mendez MD Work Phone: [facility] Comment on above: Age-related osteopor osis without current pathological fracture (CMS/HCC) Start: 12-03-2023 End: 12-03-2023 ambulatory SHAIKH ANDREA Not Available Start: 07-25-2023 Orders Only Shaikh Andrea SEVILLA Work Phone: [facility] Comment on above: Type 2 diabetes odette itus with diabetic polyneuropathy, without long-term current use of insulin (CMS/HCC) (Primary Dx) Start: 05-22-2023 Patient encounter procedure Shaikh Andrea SEVILLA Work Phone: [facility] Start: 02-21-2022 End: 02-22-2022 ambulatory SHAIKH Jared MENDEZ Facility:[facility] Start: 08-16-2021 End: 08-17-2021 ambulatory SHAIKH Jared MENDEZ Facility:[facility] Start: 08-26-2018 End: 08-27-2018 Patient encounter procedure DEFAULT PHYSICIAN Facility:[facility] Procedures Date Procedure Procedure Detail Performing Clinician Start: 04-18-2024 ALL CBC WITH AUTO DIFF Donita Valle [employer] Work Phone: Start: 03-18-2024 ALL CBC WITH AUTO DIFF Donita Valle [employer] Work Phone: Start: 10-16-2022 Colonoscopy Shaikh Lawson aguilar MD Work Phone: Appendectomy [facility] Breast structure (renny dy structure) [facility] Cataract (disorder) Coty [facility] Colonoscopy Coty Hopper Herniated structure (morphologic abnormality) [facility]y Hopper Hysterectomy Coty Hopper Plan of Treatment Date Care Activity Detail Author Start: 10-16-2032 Screening for malign ant neoplasm of colon [facility] Start: 06-02-2025 Pneumococcal Vaccine : 65+ Years (1 of 2 - PCV) Pneumococcal Vaccine: 65+ Years (1 of 2 - PCV) [facility] Comment on above: Postponed from 02/06 (Patient Refused) Postponed from 02/06 (Patient Refused) Start: 12-02-2024 Hemoglobin A1c measurement Diabetes: Hemoglobin A1C [facility] Start: 12-02-2024 Urine screening for protein Diabetes: Urine Protein Screening [facility] Start: 11-27-2024 End: 11-27-2024 Patient encounter procedure 11/27/2024 1:20 PM EDT Office Visit [facility] [address] [place] [address] Jeannine Aldana, LUIS ARMANDO [address] [place] [id number] [facility] Start: 09-01-2024 End: 09-01-2024 Patient encounter procedure 09/01/2024 1:40 PM EDT Office Visit [facility] [address] [place] [address] Jeannine Aldana, LUIS ARMANDO [address] [place] [id number] [facility] Start: 09-01-2024 End: 09-01-2024 Patient encounter procedure 09/01/2024 8:30 AM EDT Office Visit [facility] [address] [place] [address] Donita Valle NP [address] [place] [address] [facility] Start: 08-16-2024 Glaucoma screening Diabetes: R etinopathy Screening [facility] Start: 06-02-2024 End: 08-03-2024 Hemoglobin A1c/Hemoglobin.total in Blood Hemoglobin A1c Lab Routine Type 2 diabetes mellitus with diabetic polyneuropathy, without long-term current use of insulin ([facility]) Expected: 06/02/2024 (Approximate), Expires: 08/03/2024 [facility] Comment on above: Expected: 06/02/2024 (Approximate), Expires: 08/03/2024 Start: 06-02-2024 End: 08-03-2025 MG Breast - bilateral Screening Bilateral screening mammogram Imaging Routine Encounter for screening mammogram for malignant neoplasm of breast Expected: 06/02/2024, Expires: 08/03/2025 [facility] Work Phone: Comment on above: Expected: 06/02/2024 , Expires: 08/03/2025 Start: 06-02-2024 End: 06-02-2024 Patient encounter procedure 06/02/2024 8:30 AM EST Office Visit [facility] [address] [place] [address] Donita Valle, [employer] [address] [place] [address] [facility] Start: 05-22-2024 Medicare Annual Well ness (AWV) Medicare Annual Wellness (AWV) [facility] Start: 03-19-2024 End: 03-19-2025 CBC W Auto Differential panel - Blood CBC and differential Lab Routine Anemia, unspecified type Expected: 03/19/2024 (Approximate), Expires: 03/19/2025 [facility] Work Phone: Comment on above: Expected: 03/19/2024 (Approximate), Expires: 03/19/2025 Start: 03-19-2024 End: 03-19-2025 Cobalamin (Vitamin B12) [Mass/volume] in Serum or Plasma Vitamin B12 Lab Routine Anemia, unspecified type Expected: 03/19/2024 (Approximate), Expires: 03/19/2025 [facility] Comment on above: Expected: 03/19/2024 (Approximate), Expires: 03/19/2025 Start: 03-19-2024 End: 03-19-2025 Ferritin [Mass/volume] in Serum or Plasma Ferritin Lab Routine Anemia, unspecified type Expected: 03/19/2024 (Approximate), Expires: 03/19/2025 [facility] Comment on above: Expected: 03/19/2024 (Approximate), Expires: 03/19/2025 Start: 03-19-2024 End: 03-19-2025 Iron + transferrin + TIBC Iron + transferrin + TIBC Lab Routine Anemia, unspecified type Expected: 03/19/2024 (Approximate), Expires: 03/19/2025 [facility] Comment on above: Expected: 03/19/2024 (Approximate), Expires: 03/19/2025 Start: 03-19-2024 End: 03-19-2025 Measurement of occult blood in single stool specimen Occult blood x 1, stool Lab Routine Anemia, unspecified type Expected: 03/19/2024 (Approximate), Expires: 03/19/2025 [facility] Work Phone: Comment on above: Expected: 03/19/2024 (Approximate), Expires: 03/19/2025 Start: 03-04-2024 Hemoglobin A1c measurement Diabetes: Hemoglobin A1C [facility] Start: 03-03-2024 End: 03-03-2025 CBC W Auto Differential panel - Blood CBC and differential Lab Routine Type 2 diabetes mellitus with diabetic polyneuropathy, without long-term current use of insulin (CMS/HCC) Essential hypertension (CMS/HCC) Expected: 03/03/2024 (Approximate), Expires: 03/03/2025 [facility] Comment on above: Expected: 03/03/2024 (Approximate), Expires: 03/03/2025 Start: 03-03-2024 End: 03-03-2025 Comprehensive metabolic 2000 panel - Serum or Plasma Comprehensive metabolic panel Lab Routine Type 2 diabetes mellitus with diabetic polyneuropathy, without long-term current use of insulin (CMS/HCC) Essential hypertension (CMS/HCC) Expected: 03/03/2024 (Approximate), Expires: 03/03/2025 [facility] Comment on above: Expected: 03/03/2024 (Approximate), Expires: 03/03/2025 Start: 03-03-2024 End: 03-03-2025 Hemoglobin A1c/Hemoglobin.total in Blood Hemoglobin A1c Lab Routine Type 2 diabetes mellitus with diabetic polyneuropathy, without long-term current use of insulin (CMS/HCC) Essential hypertension (CMS/HCC) Expected: 03/03/2024 (Approximate), Expires: 03/03/2025 [facility] Comment on above: Expected: 03/03/2024 (Approximate), Expires: 03/03/2025 Start: 03-03-2024 End: 03-03-2024 Patient encounter procedure 03/03/2024 9:30 AM EDT Office Visit [facility] [address] [place] [id number] Donita Valle NP [address] [place] [id number] [facility] Start: 02-17-2024 Influenza vaccination Influenza Vacc ine (#1) [facility] Start: 12-16-2023 Influenza vaccination Influenza Vacc ine (#1) [facility] Comment on above: Postponed from 02/16 (Patient Refused) Start: 11-22-2023 End: 11-22-2023 Patient encounter procedure 11/22/2023 1:00 PM EDT [facility] [address] [place] [address] Shaikh Mendez MD [address] [place] [address] [facility] Start: 08-27-2023 End: 08-27-2023 Patient encounter procedure 08/27/2023 9:30 AM EDT Procedure Visit [facility] [address] [place] [id number] Joseph Mercer, DP [address] [place] [address] [facility] Start: 04-18-2023 Hemoglobin A1c measurement Diabetes: Hemoglobin A1C [facility] Start: 1990 Screening for malign ant neoplasm of breast Mammogram [facility] Start: 1969 Urine screening for protein Diabetes: Urine Protein Screening [facility] Start: 02-07-1956 Pneumococcal Vaccine : 65+ Years (1 - PCV) Pneumococcal Vaccine: 65+ Years (1 - PCV) [facility] Start: 02-07-1956 Pneumococcal Vaccine : 65+ Years (1 of 2 - PCV) Pneumococcal Vaccine: 65+ Years (1 of 2 - PCV) [facility] Start: 1950 Screening for malign ant neoplasm of colon [facility] Microalbumin/Creatin ine panel in random Urine Microalbumin / creatinine urine ratio Lab Routine Type 2 diabetes mellitus with diabetic polyneuropathy, without long-term current use of insulin (CMS/HCC) Essential hypertension (CMS/HCC) Ordered: 03/03/2024 [facility] Work Phone: Comment on above: Ordered: 03/03/2024 Payers Date Payer Category Payer Private Health Insurance [id number] 2021 Medicaid [employer] MED[employer]ARE A DVANTAGE [id number] 2021 Medicare [id number] 1959 Medicare [id number] 1950 Unknown [id number] 1950 Unknown [id number] 593 1950 Unknown [id number] 593 1950 Unknown [id number] 1259 1950 Unknown [id number] 1259 1950 Unknown [id number] 9 1950 Unknown [id number]. 1259 1950 Unknown [id number] 727 1950 Unknown [id number] 727 Unknown Social History Date Type Detail Facility Start: 05-22-2023 End: 12-03-2023 [facility] End: 06-18-1997 History of tobacco use Current smoker [facility] End: 06-18-1997 History of tobacco use Cigarette Smoker [facility] Start: 05-22-2023 End: 12-03-2023 Tobacco use and exposure Smokeless tobacco non-user [facility] Start: 07-06-2023 End: 09-01-2024 Alcohol intake Lifetime non-drinker (finding) [facility] Start: 05-22-2023 End: 03-03-2024 History of Social function [facility] Start: 05-22-2023 End: 03-03-2024 Humiliation, Afraid, Rape, and Kick questionnaire [HARK] [facility] Within the last year , have you been afraid of your partner or ex-partner? No [facility] Do you belong to any clubs or organizations such as anglican groups, unions, fraternal or athletic groups, or school groups? Yes [facility] Are you now , , , , never or living with a partner? [facility] Frequency of Alcohol Consumption Not on file [facility] How often do you hav e 6 or more drinks on 1 occasion? Never [facility] How hard is it for y ou to pay for the very basics like food, housing, medical care, and heating Somewhat hard [facility] Do you feel stress - tense, restless, nervous, or anxious, or unable to sleep at night because your mind is troubled all the time - these days [OSQ] Not at all [facility] (I/We) worried cecilio er (my/our) food would run out before (I/we) got money to buy more. Never true [facility] Start: 11-12-2022 Tobacco Comment Quit smoking 2 0 years ago [facility] Start: 03-17-2023 Alcohol Comment Caffeine intake: non e [facility] Start: 1950 Sex Assigned At Not on file [facility] History of tobacco use Passive smoker [facility] Sexual Orientation [facility] Sex Female (finding) [facility] Equipment Procedure Code Equipment Code Equipment Origin al Text Equipment Identifier Dates TEST ONCE DAILY [id number] Start: 12-31-2023 Clinical Notes 03-03-2024 to 11-19-2024 Telephone Encounter - Jeannine Aldana NP - 10/03/2024 7:32 AM EDTTelephone Encounter - Jeannine Aldana NP - 10/03/2024 7:32 AM EDTTelephone Encounter - Ciaran Hardin MD - 08/28/2024 4:57 PM EDT Note Date & Type Note Facility 11-19-2024 Hospital Discharg e instructions Patient Education 11/19/2024 14:30:51 Urinary Incontinence Urinary Incontinence Urinary incontinence refers to a condition in which a person is unable to control where and when to pass urine. A person with this condition will urinate involuntarily. This means that the person urinates when he or she does not mean to. What are the causes? This condition may be caused by: Medicines. Infections. Constipation. Overactive bladder muscles. Weak bladder muscles. Weak pelvic floor muscles. These muscles provide support for the bladder, intestine, and, in women, the uterus. Enlarged prostate in men. The prostate is a gland near the bladder. When it gets too big, it can pinch the urethra. With the urethra blocked, the bladder can weaken and lose the ability to empty properly. Surgery. Emotional factors, such as anxiety, stress, or post-traumatic stress disorder (PTSD). Spinal cord injury, nerve injury, or other neurological conditions. Pelvic organ prolapse. This happens in women when organs move out of place and into the vagina. This movement can prevent the bladder and urethra from working properly. What increases the risk? The following factors may make you more likely to develop this condition: Age. The older you are, the higher the risk. Obesity. Being physically inactive. and childbirth. Menopause. Diseases that affect the nerves or spinal cord. Long-term, or chronic, coughing. This can increase pressure on the bladder and pelvic floor muscles. What are the signs or symptoms? Symptoms may vary depending on the type of urinary incontinence you have. They include: A sudden urge to urinate, and passing urine involuntarily before you can get to a bathroom (urge incontinence). Suddenly passing urine when doing activities that force urine to pass, such as coughing, laughing, exercising, or sneezing (stress incontinence). Needing to urinate often but urinating only a small amount, or constantly dribbling urine (overflow incontinence). Urinating because you cannot get to the bathroom in time due to a physical disability, such as arthritis or injury, or due to a communication or thinking problem, such as Alzheimer's disease (functional incontinence). How is this diagnosed? This condition may be diagnosed based on: Your medical history. A physical exam. Tests, such as: ?Urine tests. ?X-rays of your kidney and bladder. ?Ultrasound. ?CT scan. ?Cystoscopy. In this procedure, a health care provider inserts a tube with a light and camera (cystoscope) through the urethra and into the bladder to check for problems. ?Urodynamic testing. These tests assess how well the bladder, urethra, and sphincter can store and release urine. There are different types of urodynamic tests, and they vary depending on what the test is measuring. To help diagnose your condition, your health care provider may recommend that you keep a log of when you urinate and how much you urinate. How is this treated? Treatment for this condition depends on the type of incontinence that you have and its cause. Treatment may include: Lifestyle changes, such as: ?Quitting smoking. ?Maintaining a healthy weight. ?Staying active. Try to get 150 minutes of moderate-intensity exercise every week. Ask your health care provider which activities are safe for you. ?Eating a healthy diet. ?Avoid high-fat foods, like fried foods. ?Avoid refined carbohydrates like white bread and white rice. ?Limit how much alcohol and caffeine you drink. ?Increase your fiber intake. Healthy sources of fiber include beans, whole grains, and fresh fruits and vegetables. Behavioral changes, such as: ?Pelvic floor muscle exercises. ?Bladder training, such as lengthening the amount of time between bathroom breaks, or using the bathroom at regular intervals. ?Using techniques to suppress bladder urges. This can include distraction techniques or controlled breathing exercises. Medicines, such as: ?Medicines to relax the bladder muscles and prevent bladder spasms. ?Medicines to help slow or prevent the growth of a man's prostate. ?Botox injections. These can help relax the bladder muscles. Treatments, such as: ?Using pulses of electricity to help change bladder reflexes (electrical nerve stimulation). ?For women, using a medical engineer to prevent urine leaks. This is a small, tampon-like, disposable device that is inserted into the urethra. ?Injecting collagen or carbon beads (bulking agents) into the urinary sphincter. These can help thicken tissue and close the bladder opening. ?Surgery. Follow these instructions at home: Lifestyle Limit alcohol and caffeine. These can fill your bladder quickly and irritate it. Keep yourself clean to help prevent odors and skin damage. Ask your health care provider about special skin creams and cleansers that can protect the skin from urine. Consider wearing pads or adult diapers. Make sure to change them regularly, and always change them right after experiencing incontinence. General instructions Take efbu-tlx-oritqxi and prescription medicines only as told by your health care provider. Use the bathroom about every 3 4 hours, even if you do not feel the need to urinate. Try to empty your bladder completely every time. After urinating, wait a minute. Then try to urinate again. Make sure you are in a relaxed position while urinating. If your incontinence is caused by nerve problems, keep a log of the medicines you take and the times you go to the bathroom. Keep all follow-up visits. This is important. Where to find more information [employer]estive [employer] Kidney Diseases: www.niddk.nih.gov [employer]: www.urologyhealth.org Contact a health care provider if: You have pain that gets worse. Your incontinence gets worse. Get help right away if: You have a fever or chills. You are unable to urinate. You have redness in your groin area or down your legs. Summary Urinary incontinence refers to a condition in which a person is unable to control where and when to pass urine. This condition may be caused by medicines, infection, weak bladder muscles, weak pelvic floor muscles, enlargement of the prostate (in men), or surgery. Factors such as older age, obesity, and childbirth, menopause, neurological diseases, and chronic coughing may increase your risk for developing this condition. Types of urinary incontinence include urge incontinence, stress incontinence, overflow incontinence, and functional incontinence. This condition is usually treated first with lifestyle and behavioral changes, such as quitting smoking, eating a healthier diet, and doing regular pelvic floor exercises. Other treatment options include medicines, bulking agents, medical devices, electrical nerve stimulation, or surgery. This information is not intended to replace advice given to you by your health care provider. Make sure you discuss any questions you have with your health care provider. Document Revised: 01/07/2021 Document Reviewed: 01/07/2021 [employer] Patient Education 2023 [employer]. 11/19/2024 14:30:50 Overactive Bladder, Adult Overactive Bladder, [...] You may also have very sensitive muscles that make your bladder squeeze too soon. This condition may also be caused by other factors, such as: Medical conditions: ?Urinary tract infection. ?Infection of nearby tissues. ?Prostate enlargement. ?Bladder stones, inflammation, or tumors. ?Diabetes. ?Muscle or nerve weakness, especially from these conditions: ?A spinal cord injury. ?Stroke. ?Multiple sclerosis. ?Parkinson's disease. Other causes: ?Surgery on the uterus or urethra. ?Drinking too much caffeine or alcohol. ?Certain medicines, especially those that eliminate extra fluid in the body (diuretics). ?Constipation. What increases the risk? You may be at greater risk for overactive bladder if you: Are an older adult. Smoke. Are going through menopause. Have prostate problems. Have a neurological disease, such as stroke, dementia, Parkinson's disease, or multiple sclerosis (MS). Eat or drink alcohol, spicy food, caffeine, and other things that irritate the bladder. Are overweight or obese. What are the signs or symptoms? Symptoms of this condition include a sudden, strong urge to urinate. Other symptoms include: Leaking urine. Urinating 8 or more times a day. Waking up to urinate 2 or more times overnight. How is this diagnosed? This condition may be diagnosed based on: Your symptoms and medical history. A physical exam. Blood or urine tests to check for possible causes, such as infection. You may also need to see a health care provider who specializes in urinary tract problems. This is called a urologist. How is this treated? Treatment for overactive bladder depends on the cause of your condition and whether it is mild or severe. Treatment may include: Bladder training, such as: ?Learning to control the urge to urinate by following a schedule to urinate at regular intervals. ?Doing Kegel exercises to strengthen the pelvic floor muscles that support your bladder. Special devices, such as: ?Biofeedback. This uses sensors to help you become aware of your body's signals. ?Electrical stimulation. This uses electrodes placed inside the body (implanted) or outside the body. These electrodes send gentle pulses of electricity to strengthen the nerves or muscles that control the bladder. ?Women may use a plastic device, called a pessary, that fits into the vagina and supports the bladder. Medicines, such as: ?Antibiotics to treat bladder infection. ?Antispasmodics to stop the bladder from releasing urine at the wrong time. ?Tricyclic antidepressants to relax bladder muscles. ?Injections of botulinum toxin type A directly into the bladder tissue to relax bladder muscles. Surgery, such as: ?A device may be implanted to help manage the nerve signals that control urination. ?An electrode may be implanted to stimulate electrical signals in the bladder. ?A procedure may be done to change the shape of the bladder. This is done only in very severe cases. Follow these instructions at home: Eating and drinking Make diet or lifestyle changes recommended by your health care provider. These may include: ?Drinking fluids throughout the day and not only with meals. ?Cutting down on caffeine or alcohol. ?Eating a healthy and balanced diet to prevent constipation. This may include: ?Choosing foods that are high in fiber, such as beans, whole grains, and fresh fruits and vegetables. ?Limiting foods that are high in fat and processed sugars, such as fried and sweet foods. Lifestyle Lose weight if needed. Do not use any products that contain nicotine or tobacco. These include cigarettes, chewing tobacco, and vaping devices, such as e-cigarettes. If you need help quitting, ask your health care provider. General instructions Take hdrk-jqk-fwgwolz and prescription medicines only as told by your health care provider. If you were prescribed an antibiotic medicine, take it as told by your health care provider. Do not stop taking the antibiotic even if you start to feel better. Use any implants or pessary as told by your health care provider. If needed, wear pads to absorb urine leakage. Keep a log to track how much and when you drink, and when you need to urinate. This will help your health care provider monitor your condition. Keep all follow-up visits. This is important. Contact a health care provider if: You have a fever or chills. Your symptoms do not get better with treatment. Your pain and discomfort get worse. You have more frequent urges to urinate. Get help right away if: You are not able to control your bladder. Summary Overactive bladder refers to a condition in which a person has a sudden and frequent need to urinate. Several conditions may lead to an overactive bladder. Treatment for overactive bladder depends on the cause and severity of your condition. Making lifestyle changes, doing Kegel exercises, keeping a log, and taking medicines can help with this condition. This information is not intended to replace advice given to you by your health care provider. Make sure you discuss any questions you have with your health care provider. Document Revised: 02/21/2021 Document Reviewed: 02/21/2021 [employer] Patient Education 2023 [employer]. Follow Up Care 11/07/2024 13:37:20 With:Coty Hopper PA-C, GERA Address: When:Within 3 Month(s) Comments:w/ ELIAS [facility] 11-19-2024 Note Patient Education Obstetrics and Gynecology Overactive Bladder, Adult Overactive bladder is a [...] You may also have very sensitive muscles that make your bladder squeeze too soon. This condition may also be caused by other factors, such as: ??? Medical conditions: ? Urinary tract infection. ? Infection of nearby tissues. ? Prostate enlargement. ? Bladder stones, inflammation, or tumors. ? Diabetes. ? Muscle or nerve weakness, especially from these conditions: ? A spinal cord injury. ? Stroke. ? Multiple sclerosis. ? Parkinson's disease. ??? Other causes: ? Surgery on the uterus or urethra. ? Drinking too much caffeine or alcohol. ? Certain medicines, especially those that eliminate extra fluid in the body (diuretics). ? Constipation. What increases the risk? You may [...] may include: ??? Bladder training, such as: ? Learning to control the urge to urinate by following a schedule to urinate at regular intervals. ? Doing Kegel exercises to strengthen the pelvic floor muscles that support your bladder. ??? Special devices, such as: ? Biofeedback. This uses sensors to help you become aware of your body's signals. ? Electrical stimulation. This uses electrodes placed inside the body (implanted) or outside the body. These electrodes send gentle pulses of electricity to strengthen the nerves or muscles that control the bladder. ? Women may use a plastic device, called a pessary, that fits into the vagina and supports the bladder. ??? Medicines, such as: ? Antibiotics to treat bladder infection. ? Antispasmodics to stop the bladder from releasing urine at the wrong time. ? Tricyclic antidepressants to relax bladder muscles. ? Injections of botulinum toxin type A directly into the bladder tissue to relax bladder muscles. ??? Surgery, such as: ? A device may be implanted to help manage the nerve signals that control urination. ? An electrode may be implanted to stimulate electrical signals in the bladder. ? A procedure may be done to change the shape of the bladder. This is done only in very severe cases. Follow these instructions at home: Eating and drinking ??? Make diet or lifestyle changes recommended by your health care provider. These may include: ? Drinking fluids throughout the day and not only with meals. ? Cutting down on caffeine or alcohol. ? Eating a healthy and balanced diet to prevent constipation. This may include: ? Choosing foods that are high in fiber, such as beans, whole grains, and fresh fruits and vegetables. ? Limiting foods that are high in fat and processed sugars, such as fried and sweet foods. Lifestyle ??? Lose weight if needed. ??? Do not use any products that contain nicotine or tobacco. These include cigarettes, chewing tobacco, and vaping devices, such as e-cigarettes. If you need help quitting, ask your health care provider. General instructions ??? Take tkok-vmq-uspmvlq and prescription medicines only as told by your health care provider. ??? If you were prescribed an antibiotic medicine, take it as told by your health care provider. Do not stop taking the antibiotic even if you start to feel better. ??? Use any implants or pessary as told by your health care provider. ??? If needed, wear pads to absorb urine leakage. ??? Keep a log to track how much and when you drink, and whe (more content not included)... [facility] 10[facility] Telephone encounter Note Pt will need her AWV rescheduled [place] [facility] 10-03-2024 Miscellaneous Notes Pt will need her AWV rescheduled [place] documented in this encounter [facility] 08-28-2024 Telephone encounter Note [facility] 08-28-2024 Miscellaneous Notes documented in this encounter [facility] 06-23-2024 Telephone encounter Note Pt called asking when her script for Jardiance would be called in? [facility] 06-23-2024 Miscellaneous Notes Pt called asking when her script for Jardiance would be called in? NERY:06/12/2024 NOV:09/01/2024 documented in this encounter [facility] 06-16-2024 Telephone encounter Note NERY:06/12/2024 NOV:09/01/2024 [facility] 06-02-2024 History of Presen t illness Narrative Associated Problem(s): Type 2 diabetes mellitus with diabetic polyneuropathy (CMS/HCC) Glipizide 45mg Jardiance 10mg Most recent labs: [...] persistent hypoglycemia/hyperglycemia on home glucose monitoring noted. Associated Problem(s): Essential hypertension (CMS/HCC) Currently taking Carvedilol 25mg Losartan 50mg Checks BP at home very infrequently; Denies orthostatic changes, dizziness, cough, shortness of breath, swelling in extremities. Continue current regimen. Given BP log, advised pt to record BP and bring log back with them to next visit. Associated Problem(s): Type 2 diabetes mellitus without complications (CMS/HCC) Glipizide 45mg Jardiance 10mg Most recent labs: [...] persistent hypoglycemia/hyperglycemia on home glucose monitoring noted. Associated Problem(s): Hyperlipidemia (CMS/HCC) Stopped taking Rosuvastatin 20mg. State she believes it is not good for her Discussed with pt the cardiovascular risks associated with unmanaged cholesterol, LDL, and triglycerides. Pt reports understanding and states she does not want to take statin. Images from the original note were not included. Subjective Patient ID: Jelani Ackerman is a 74 y.o. female who presents for Follow-up. HPI HTN: Currently taking Carvedilol 25mg Losartan 50mg Checks BP at home very infrequently; Denies orthostatic changes, dizziness, cough, shortness of breath, swelling in extremities. Continue current regimen. Given BP log, advised pt to record BP and bring log back with them to next visit. DMII: Glipizide 45mg Jardiance 10mg Most recent labs: [...] persistent hypoglycemia/hyperglycemia on home glucose monitoring noted. HLD: Stopped taking Rosuvastatin 20mg. State she believes it is not good for her Discussed with pt the cardiovascular risks associated with unmanaged cholesterol, LDL, and triglycerides. Pt reports understanding and states she does not want to take statin. Review of Systems Constitutional: Negative for activity change, appetite change, chills, diaphoresis, fatigue, fever and unexpected weight change. HENT: Negative for congestion, ear pain, rhinorrhea, sinus pressure, sinus pain, sneezing, sore throat, trouble swallowing and voice change. Eyes: Negative for visual disturbance. Respiratory: Positive for cough. Negative for chest tightness, shortness of breath and wheezing. Cardiovascular: Negative for chest pain, palpitations and leg swelling. Gastrointestinal: Negative for abdominal distention, abdominal pain, blood in stool, constipation, diarrhea and vomiting. Genitourinary: Negative for decreased urine volume, dysuria, flank pain, frequency, hematuria and urgency. Musculoskeletal: Negative for arthralgias, gait problem, joint swelling and myalgias. Skin: Negative for rash. Neurological: Negative for dizziness, tremors, syncope, weakness, light-headedness and headaches. Psychiatric/Behavioral: Negative for decreased concentration and suicidal ideas. The patient is not nervous/anxious. Hematological: Does not bruise/bleed easily. Endocrine: Negative for cold intolerance, heat intolerance, polydipsia, polyphagia and polyuria. Objective Physical Exam Vitals reviewed. Constitutional: Appearance: Normal appearance. HENT: Right Ear: Tympanic membrane normal. Left Ear: Tympanic membrane normal. Nose: Nose normal. Mouth/Throat: Mouth: Mucous membranes are moist. Pharynx: Oropharynx is clear. Eyes: Pupils: Pupils are equal, round, and reactive to light. Cardiovascular: Rate and Rhythm: Normal rate and regular rhythm. Pulses: Normal pulses. Heart sounds: Normal heart sounds. Pulmonary: Effort: Pulmonary effort is normal. Breath sounds: Normal breath sounds. Abdominal: General: Abdomen is flat. Bowel sounds are normal. Palpations: Abdomen is soft. Skin: Capillary Refill: Capillary refill takes less than 2 seconds. Neurological: Mental Status: She is alert and oriented to person, place, and time. Assessment/Plan Problem List Items Addressed This Visit Type 2 diabetes mellitus with diabetic polyneuropathy (CMS/HCC) Glipizide 45mg Jardiance 10mg Most recent labs: [...] persistent hypoglycemia/hyperglycemia on home glucose monitoring noted. Relevant Orders Hemoglobin A1c Essential hypertension (CMS/HCC) Currently taking Carvedilol 25mg Losartan 50mg Checks BP at home very infrequently; Denies orthostatic changes, dizziness, cough, shortness of breath, swelling in extremities. Continue current regimen. Given BP log, advised pt to record BP and bring log back with them to next visit. Relevant Medications carvedilol (Coreg) 25 MG tablet Hyperlipidemia (CMS/HCC) Stopped taking Rosuvastatin 20mg. State she believes it is not good for her Discussed with pt the cardiovascular risks associated with unmanaged cholesterol, LDL, and triglycerides. Pt reports understanding and states she does not want to take statin. Encounter for screening mammogram for malignant neoplasm of breast - Primary Relevant Orders Bilateral screening mammogram Age-related osteoporosis without current pathological fracture (CMS/HCC) Relevant Medications Calcium Carb-Cholecalciferol (OYSCO 500 + D) 500-5 MG-MCG tablet Chronic pain syndrome Relevant Medications gabapentin (Neurontin) 300 MG capsule Chronic heart failure with preserved ejection fraction (CMS/HCC) Relevant Medications furosemide (Lasix) 40 MG tablet Seizure disorder (CMS/HCC) Relevant Medications carBAMazepine (TEGretol) 200 MG tablet Rhinitis Relevant Medications fluticasone (Flonase Allergy Relief) 50 MCG/ACT nasal spray Other Visit Diagnoses Acute cough Relevant Medications guaiFENesin (Mucinex) 600 MG 12 hr tablet documented in this encounter [facility] 06-02-2024 Instructions Donita Valle NP - 06/02/2024 8:30 AM EST CDC (Center for Disease Control) NIH ([employer]) Pub Med Continue to rest, drink plenty of fluids, and eat a well-balance diet. Resume normal activity. AVOID anything strenuous until you are feeling better. Treatment: Nasal saline spray 2-3 times/dayCold and sinus medication - if you have high blood pressure issues use coricidin hbp Zyrtec allergy medication once daily. Flonase nasal spray 1-2 squirts in each nostril at night. Tylenol for fever and body aches. Mucinex for cough/congestion 1,200mg twice daily. Vitamins: Vitamin C 1,000mg per day. Vitamin D3 2,000 international unit(s) per day.Zinc 25mg per day. WORSENING SYMPTOMS, CHEST PAIN, OR SHORTNESS OF BREATH, GO TO THE NEAREST EMERGENCY DEPARTMENT. documented in this encounter [facility] 03-03-2024 History of Presen t illness Narrative Associated Problem(s): Hyperlipidemia (CMS/HCC) Currently taking Rosuvastatin 20mg Denies any myalgias. Continue current regimen. Associated Problem(s): Essential hypertension (CMS/HCC) Currently taking Carvedilol 25mg Losartan 50mg Checks BP at home very infrequently; Denies orthostatic changes, dizziness, cough, shortness of breath, swelling in extremities. Continue current regimen. Given BP log, advised pt to record BP and bring log back with them to next visit. Associated Problem(s): Type 2 diabetes mellitus with diabetic polyneuropathy (HCC) (CMS/HCC) Glipizide 45mg Metformin 500mg Once daily- is [...] persistent hypoglycemia/hyperglycemia on home glucose monitoring noted. Images from the original note were not included. Subjective Patient ID: Jelani Ackerman is a 74 y.o. female who presents for Follow-up. HPI HTN: Currently taking Carvedilol 25mg Losartan 50mg Checks BP at home very infrequently; Denies orthostatic changes, dizziness, cough, shortness of breath, swelling in extremities. Continue current regimen. Given BP log, advised pt to record BP and bring log back with them to next visit. DMII: Glipizide 45mg Metformin 500mg Once daily- is prescribed Bid; Pt is concerned about renal effects of Metformin. Will consider initiating Jardiance Most recent labs: hemoglobin A1C 7.1% Checks [...] persistent hypoglycemia/hyperglycemia on home glucose monitoring noted. Education: Check blood sugars daily, notify if <70 [...] diet low in carbohydrates, and simple sugars. HLD: Currently taking Rosuvastatin 20mg Denies any myalgias. Continue current regimen. Review of Systems Constitutional: Negative for activity change, appetite change, chills, diaphoresis, fatigue, fever and unexpected weight change. HENT: Positive for postnasal drip and rhinorrhea. Negative for congestion, ear pain, sinus pressure, sinus pain, sneezing, sore throat, trouble swallowing and voice change. Eyes: Negative for visual disturbance. Respiratory: Negative for cough, chest tightness, shortness of breath and wheezing. Cardiovascular: Negative for chest pain, palpitations and leg swelling. Gastrointestinal: Negative for abdominal distention, abdominal pain, blood in stool, constipation, diarrhea and vomiting. Genitourinary: Negative for decreased urine volume, dysuria, flank pain, frequency, hematuria and urgency. Musculoskeletal: Negative for arthralgias, gait problem, joint swelling and myalgias. Skin: Negative for rash. Neurological: Negative for dizziness, tremors, syncope, weakness, light-headedness and headaches. Psychiatric/Behavioral: Negative for decreased concentration and suicidal ideas. The patient is not nervous/anxious. Hematological: Does not bruise/bleed easily. Endocrine: Negative for cold intolerance, heat intolerance, polydipsia, polyphagia and polyuria. Objective Physical Exam Vitals reviewed. Constitutional: Appearance: Normal appearance. HENT: Head: Normocephalic and atraumatic. Right Ear: Tympanic membrane normal. Left Ear: Tympanic membrane normal. Nose: Rhinorrhea present. Mouth/Throat: Mouth: Mucous membranes are moist. Pharynx: Oropharynx is clear. Eyes: Pupils: Pupils are equal, round, and reactive to light. Cardiovascular: Rate and Rhythm: Normal rate and regular rhythm. Pulses: Normal pulses. Heart sounds: Normal heart sounds. Pulmonary: Effort: Pulmonary effort is normal. Breath sounds: Normal breath sounds. Abdominal: General: Abdomen is flat. Bowel sounds are normal. Palpations: Abdomen is soft. Musculoskeletal: General: Normal range of motion. Cervical back: Normal range of motion. Skin: General: Skin is warm and dry. Capillary Refill: Capillary refill takes less than 2 seconds. Neurological: General: No focal deficit present. Mental Status: She is alert and oriented to person, place, and time. Psychiatric: Mood and Affect: Mood normal. Behavior: Behavior normal. Assessment/Plan Problem List Items Addressed This Visit Type 2 diabetes mellitus with diabetic polyneuropathy (HCC) ([facility]/HCC) - Primary Glipizide 45mg Metformin 500mg Once daily- is [...] persistent hypoglycemia/hyperglycemia on home glucose monitoring noted. Relevant Orders Microalbumin / creatinine urine ratio Hemoglobin A1c Comprehensive metabolic panel CBC and differential Essential hypertension (CMS/HCC) Currently taking Carvedilol 25mg Losartan 50mg Checks BP at home very infrequently; Denies orthostatic changes, dizziness, cough, shortness of breath, swelling in extremities. Continue current regimen. Given BP log, advised pt to record BP and bring log back with them to next visit. Relevant Orders Microalbumin / creatinine urine ratio Hemoglobin A1c Comprehensive metabolic panel CBC and differential Hyperlipidemia ([facility]/HCC) Currently taking Rosuvastatin 20mg Denies any myalgias. Continue current regimen. Rhinitis Relevant Medications fluticasone (Flonase Allergy Relief) 50 MCG/ACT nasal spray cetirizine (ZyrTEC) 10 MG tablet documented in this encounter [facility] 03-03-2024 Instructions Donita Valle NP - 03/03/2024 9:30 AM EDT Your blood pressure is TOO HIGH in the office today. Check your blood pressure at home 3 times per week, preferably in the afternoon. Goal <130/90. Record results in blood pressure log. Bring back with you to your next visit. Education: Check blood sugars daily, notify if <70 [...] diet low in carbohydrates, and simple sugars. Call if you need anything! documented in this encounter [facility] Evaluation + Plan note Future Appointments Appointment Date:02/25/2025 02:30:00 PM Scheduled Provider:Coty Hopper PA-C Location:[facility] Appointment Type:URO Office Visit [facility] Evaluation note Diagnosis Type 2 diabetes mellitus with diabetic polyneuropathy, without long-term current use of insulin (CMS/HCC)- Primary [facility] Diagnosis Anemia, unspecified type- Primary [facility]* Diagnosis Anemia, unspecified type- Primary documented in this encounter [facility]* Diagnosis Type 2 diabetes mellitus with diabetic polyneuropathy, without long-term current use of insulin (CMS/HCC)- Primary Chronic diastolic congestive heart failure (CMS/HCC) Essential hypertension (CMS/HCC) Unspecified essential hypertension Mixed hyperlipidemia (CMS/HCC) Mixed hyperlipidemia Encounter for Medicare annual wellness exam Age-related osteoporosis without current pathological fracture (CMS/HCC) Chronic pain syndrome Screening mammogram for breast cancer Type 2 diabetes mellitus with diabetic polyneuropathy, without long-term current use of insulin (CMS/[facility])- Primary Mixed hyperlipidemia (CMS/HCC) Mixed hyperlipidemia Essential hypertension (CMS/HCC) Unspecified essential hypertension Chronic diastolic congestive heart failure (CMS/HCC) Chronic heart failure with preserved ejection fraction (CMS/HCC) Chronic pain syndrome Seizure disorder (CMS/HCC) Unspecified epilepsy without mention of intractable epilepsy Type 2 diabetes mellitus with diabetic polyneuropathy, without long-term current use of insulin (CMS/HCC)- Primary Essential hypertension (CMS/HCC) Unspecified essential hypertension Mixed hyperlipidemia (CMS/HCC) Mixed hyperlipidemia Rhinitis, unspecified type Chronic pain syndrome documented in this encounter [facility]* Diagnosis Type 2 diabetes mellitus with diabetic polyneuropathy, without long-term current use of insulin ([facility]/HCC)- Primary Chronic diastolic congestive heart failure (CMS/HCC) Essential hypertension (CMS/HCC) Unspecified essential hypertension Mixed hyperlipidemia (CMS/HCC) Mixed hyperlipidemia Encounter for Medicare annual wellness exam Age-related osteoporosis without current pathological fracture ([facility]/HCC) Chronic pain syndrome Screening mammogram for breast cancer Type 2 diabetes mellitus with diabetic polyneuropathy, without long-term current use of insulin ([facility])- Primary Mixed hyperlipidemia (CMS/HCC) Mixed hyperlipidemia Essential hypertension (CMS/HCC) Unspecified essential hypertension Chronic diastolic congestive heart failure (CMS/HCC) Chronic heart failure with preserved ejection fraction (CMS/HCC) Chronic pain syndrome Seizure disorder ([facility]/HCC) Unspecified epilepsy without mention of intractable epilepsy Type 2 diabetes mellitus with diabetic polyneuropathy, without long-term current use of insulin (CMS/HCC)- Primary Essential hypertension (CMS/HCC) Unspecified essential hypertension Mixed hyperlipidemia (CMS/HCC) Mixed hyperlipidemia Rhinitis, unspecified type Type 2 diabetes mellitus with diabetic polyneuropathy, without long-term current use of insulin ([facility]/HCC) documented in this encounter [facility]* Diagnosis Type 2 diabetes mellitus with diabetic polyneuropathy, without long-term current use of insulin ([facility]/HCC)- Primary Essential hypertension (CMS/HCC) Unspecified essential hypertension Mixed hyperlipidemia (CMS/HCC) Mixed hyperlipidemia Rhinitis, unspecified type documented in this encounter [facility]* Diagnosis Type 2 diabetes mellitus with diabetic polyneuropathy, without long-term current use of insulin (CMS/HCC)- Primary Chronic diastolic congestive heart failure (CMS/HCC) Essential hypertension (CMS/HCC) Unspecified essential hypertension Mixed hyperlipidemia (CMS/HCC) Mixed hyperlipidemia Encounter for Medicare annual wellness exam Age-related osteoporosis without current pathological fracture ([facility]) Chronic pain syndrome Screening mammogram for breast cancer Type 2 diabetes mellitus with diabetic polyneuropathy, without long-term current use of insulin ([facility]/HCC)- Primary Mixed hyperlipidemia (CMS/HCC) Mixed hyperlipidemia Essential hypertension (CMS/HCC) Unspecified essential hypertension Chronic diastolic congestive heart failure (CMS/HCC) Chronic heart failure with preserved ejection fraction (CMS/HCC) Chronic pain syndrome Seizure disorder ([facility]/HCC) Unspecified epilepsy without mention of intractable epilepsy Type 2 diabetes mellitus with diabetic polyneuropathy, without long-term current use of insulin ([facility])- Primary Essential hypertension (CMS/HCC) Unspecified essential hypertension Mixed hyperlipidemia (CMS/HCC) Mixed hyperlipidemia Rhinitis, unspecified type Chronic heart failure with preserved ejection fraction (CMS/HCC) documented in this encounter [facility]* Diagnosis Type 2 diabetes mellitus with diabetic polyneuropathy, without long-term current use of insulin ([facility])- Primary Chronic diastolic congestive heart failure (CMS/HCC) Essential hypertension (CMS/HCC) Unspecified essential hypertension Mixed hyperlipidemia ([facility]/HCC) Mixed hyperlipidemia Encounter for Medicare annual wellness exam Age-related osteoporosis without current pathological fracture ([facility]) Chronic pain syndrome Screening mammogram for breast cancer Type 2 diabetes mellitus with diabetic polyneuropathy, without long-term current use of insulin ([facility])- Primary Mixed hyperlipidemia (CMS/HCC) Mixed hyperlipidemia Essential hypertension (CMS/HCC) Unspecified essential hypertension Chronic diastolic congestive heart failure (CMS/HCC) Chronic heart failure with preserved ejection fraction ([facility]/HCC) Chronic pain syndrome Seizure disorder ([facility]/HCC) Unspecified epilepsy without mention of intractable epilepsy Type 2 diabetes mellitus with diabetic polyneuropathy, without long-term current use of insulin ([facility])- Primary Essential hypertension (CMS/HCC) Unspecified essential hypertension Mixed hyperlipidemia (CMS/HCC) Mixed hyperlipidemia Rhinitis, unspecified type Essential hypertension ([facility]/HCC) Unspecified essential hypertension [facility] Diagnosis Type 2 diabetes mellitus with diabetic polyneuropathy, without long-term current use of insulin (CMS/HCC)- Primary Chronic diastolic congestive heart failure (CMS/HCC) Essential hypertension (CMS/HCC) Unspecified essential hypertension Mixed hyperlipidemia ([facility]/HCC) Mixed hyperlipidemia Encounter for Medicare annual wellness exam Age-related osteoporosis without current pathological fracture ([facility]/HCC) Chronic pain syndrome Screening mammogram for breast cancer Type 2 diabetes mellitus with diabetic polyneuropathy, without long-term current use of insulin ([facility])- Primary Mixed hyperlipidemia (CMS/HCC) Mixed hyperlipidemia Essential hypertension (CMS/HCC) Unspecified essential hypertension Chronic diastolic congestive heart failure (CMS/HCC) Chronic heart failure with preserved ejection fraction ([facility]/HCC) Chronic pain syndrome Seizure disorder ([facility]) Unspecified epilepsy without mention of intractable epilepsy Type 2 diabetes mellitus with diabetic polyneuropathy, without long-term current use of insulin ([facility])- Primary Essential hypertension (CMS/HCC) Unspecified essential hypertension Mixed hyperlipidemia ([facility]/HCC) Mixed hyperlipidemia Rhinitis, unspecified type Encounter for screening mammogram for malignant neoplasm of breast- Primary Type 2 diabetes mellitus with diabetic polyneuropathy, without long-term current use of insulin ([facility]) Age-related osteoporosis without current pathological fracture ([facility]/HCC) Seizure disorder ([facility]) Unspecified epilepsy without mention of intractable epilepsy Essential hypertension ([facility]/HCC) Unspecified essential hypertension Rhinitis, unspecified type Chronic heart failure with preserved ejection fraction ([facility]) Chronic pain syndrome Acute cough Mixed hyperlipidemia ([facility]) Mixed hyperlipidemia [facility]* Diagnosis Age-related osteoporosis without current pathological fracture ([facility]/HCC) [facility]* Diagnosis Chronic heart failure with preserved ejection fraction ([facility]/HCC) [facility]* Diagnosis Type 2 diabetes mellitus with diabetic polyneuropathy, without long-term current use of insulin ([facility])- Primary Chronic diastolic congestive heart failure (CMS/HCC) Essential hypertension (CMS/HCC) Unspecified essential hypertension Mixed hyperlipidemia ([facility]/HCC) Mixed hyperlipidemia Encounter for Medicare annual wellness exam Age-related osteoporosis without current pathological fracture ([facility]/HCC) Chronic pain syndrome Screening mammogram for breast cancer Type 2 diabetes mellitus with diabetic polyneuropathy, without long-term current use of insulin (CMS/HCC)- Primary Mixed hyperlipidemia (CMS/HCC) Mixed hyperlipidemia Essential hypertension (CMS/HCC) Unspecified essential hypertension Chronic diastolic congestive heart failure (CMS/HCC) Chronic heart failure with preserved ejection fraction (CMS/HCC) Chronic pain syndrome Seizure disorder (CMS/HCC) Unspecified epilepsy without mention of intractable epilepsy Type 2 diabetes mellitus with diabetic polyneuropathy, without long-term current use of insulin (CMS/HCC)- Primary Essential hypertension (CMS/HCC) Unspecified essential hypertension Mixed hyperlipidemia (CMS/HCC) Mixed hyperlipidemia Rhinitis, unspecified type Encounter for screening mammogram for malignant neoplasm of breast- Primary Type 2 diabetes mellitus with diabetic polyneuropathy, without long-term current use of insulin (CMS/HCC) Age-related osteoporosis without current pathological fracture (CMS/HCC) Seizure disorder (CMS/HCC) Unspecified epilepsy without mention of intractable epilepsy Essential hypertension (CMS/HCC) Unspecified essential hypertension Rhinitis, unspecified type Chronic heart failure with preserved ejection fraction (CMS/HCC) Chronic pain syndrome Acute cough Mixed hyperlipidemia (CMS/HCC) Mixed hyperlipidemia Type 2 diabetes mellitus with diabetic polyneuropathy, without long-term current use of insulin (CMS/HCC)- Primary Mixed hyperlipidemia (CMS/HCC) Mixed hyperlipidemia documented in this encounter [facility]* Diagnosis Type 2 diabetes mellitus with diabetic polyneuropathy, without long-term current use of insulin (CMS/HCC)- Primary Chronic diastolic congestive heart failure (CMS/HCC) Essential hypertension (CMS/HCC) Unspecified essential hypertension Mixed hyperlipidemia (CMS/HCC) Mixed hyperlipidemia Encounter for Medicare annual wellness exam Age-related osteoporosis without current pathological fracture (CMS/HCC) Chronic pain syndrome Screening mammogram for breast cancer Type 2 diabetes mellitus with diabetic polyneuropathy, without long-term current use of insulin (CMS/HCC)- Primary Mixed hyperlipidemia (CMS/HCC) Mixed hyperlipidemia Essential hypertension (CMS/HCC) Unspecified essential hypertension Chronic diastolic congestive heart failure (CMS/HCC) Chronic heart failure with preserved ejection fraction (CMS/HCC) Chronic pain syndrome Seizure disorder (CMS/HCC) Unspecified epilepsy without mention of intractable epilepsy Type 2 diabetes mellitus with diabetic polyneuropathy, without long-term current use of insulin (CMS/HCC)- Primary Essential hypertension (CMS/HCC) Unspecified essential hypertension Mixed hyperlipidemia (CMS/HCC) Mixed hyperlipidemia Rhinitis, unspecified type Encounter for screening mammogram for malignant neoplasm of breast- Primary Type 2 diabetes mellitus with diabetic polyneuropathy, without long-term current use of insulin (CMS/HCC) Age-related osteoporosis without current pathological fracture (CMS/HCC) Seizure disorder (CMS/HCC) Unspecified epilepsy without mention of intractable epilepsy Essential hypertension (CMS/HCC) Unspecified essential hypertension Rhinitis, unspecified type Chronic heart failure with preserved ejection fraction (CMS/HCC) Chronic pain syndrome Acute cough Mixed hyperlipidemia (CMS/HCC) Mixed hyperlipidemia Age-related osteoporosis without current pathological fracture (CMS/HCC) documented in this encounter [facility]* Diagnosis Type 2 diabetes mellitus with diabetic polyneuropathy, without long-term current use of insulin (CMS/HCC)- Primary Chronic diastolic congestive heart failure (CMS/HCC) Essential hypertension (CMS/HCC) Unspecified essential hypertension Mixed hyperlipidemia (CMS/HCC) Mixed hyperlipidemia Encounter for Medicare annual wellness exam Age-related osteoporosis without current pathological fracture (CMS/HCC) Chronic pain syndrome Screening mammogram for breast cancer Type 2 diabetes mellitus with diabetic polyneuropathy, without long-term current use of insulin (CMS/HCC)- Primary Mixed hyperlipidemia (CMS/HCC) Mixed hyperlipidemia Essential hypertension (CMS/HCC) Unspecified essential hypertension Chronic diastolic congestive heart failure (CMS/HCC) Chronic heart failure with preserved ejection fraction (CMS/HCC) Chronic pain syndrome Seizure disorder (CMS/HCC) Unspecified epilepsy without mention of intractable epilepsy Type 2 diabetes mellitus with diabetic polyneuropathy, without long-term current use of insulin (CMS/HCC)- Primary Essential hypertension (CMS/HCC) Unspecified essential hypertension Mixed hyperlipidemia (CMS/HCC) Mixed hyperlipidemia Rhinitis, unspecified type Encounter for screening mammogram for malignant neoplasm of breast- Primary Type 2 diabetes mellitus with diabetic polyneuropathy, without long-term current use of insulin (CMS/HCC) Age-related osteoporosis without current pathological fracture (CMS/HCC) Seizure disorder (CMS/HCC) Unspecified epilepsy without mention of intractable epilepsy Essential hypertension (CMS/HCC) Unspecified essential hypertension Rhinitis, unspecified type Chronic heart failure with preserved ejection fraction (CMS/HCC) Chronic pain syndrome Acute cough Mixed hyperlipidemia (CMS/HCC) Mixed hyperlipidemia Type 2 diabetes mellitus with diabetic polyneuropathy, without long-term current use of insulin (CMS/HCC) documented in this encounter [facility] HealthcareEvaluation note* Diagnosis Type 2 diabetes mellitus with diabetic polyneuropathy, without long-term current use of insulin (CMS/HCC)- Primary Chronic diastolic congestive heart failure (CMS/HCC) Essential hypertension (CMS/HCC) Unspecified essential hypertension Mixed hyperlipidemia (CMS/HCC) Mixed hyperlipidemia Encounter for Medicare annual wellness exam Age-related osteoporosis without current pathological fracture (CMS/HCC) Chronic pain syndrome Screening mammogram for breast cancer Type 2 diabetes mellitus with diabetic polyneuropathy, without long-term current use of insulin (CMS/HCC)- Primary Mixed hyperlipidemia (CMS/HCC) Mixed hyperlipidemia Essential hypertension (CMS/HCC) Unspecified essential hypertension Chronic diastolic congestive heart failure (CMS/HCC) Chronic heart failure with preserved ejection fraction (CMS/HCC) Chronic pain syndrome Seizure disorder (CMS/HCC) Unspecified epilepsy without mention of intractable epilepsy Type 2 diabetes mellitus with diabetic polyneuropathy, without long-term current use of insulin (CMS/HCC)- Primary Essential hypertension (CMS/HCC) Unspecified essential hypertension Mixed hyperlipidemia (CMS/HCC) Mixed hyperlipidemia Rhinitis, unspecified type Encounter for screening mammogram for malignant neoplasm of breast- Primary Type 2 diabetes mellitus with diabetic polyneuropathy, without long-term current use of insulin ([facility]) Age-related osteoporosis without current pathological fracture (CMS/HCC) Seizure disorder (CMS/HCC) Unspecified epilepsy without mention of intractable epilepsy Essential hypertension (CMS/HCC) Unspecified essential hypertension Rhinitis, unspecified type Chronic heart failure with preserved ejection fraction (CMS/HCC) Chronic pain syndrome Acute cough Mixed hyperlipidemia (CMS/HCC) Mixed hyperlipidemia Chronic pain syndrome documented in this encounter [facility] HealthcareEvaluation note* Diagnosis Type 2 diabetes mellitus with diabetic polyneuropathy, without long-term current use of insulin (CMS/[facility])- Primary Chronic diastolic congestive heart failure (CMS/HCC) Essential hypertension (CMS/HCC) Unspecified essential hypertension Mixed hyperlipidemia (CMS/HCC) Mixed hyperlipidemia Encounter for Medicare annual wellness exam Age-related osteoporosis without current pathological fracture ([facility]/HCC) Chronic pain syndrome Screening mammogram for breast cancer Type 2 diabetes mellitus with diabetic polyneuropathy, without long-term current use of insulin (CMS/HCC)- Primary Mixed hyperlipidemia (CMS/HCC) Mixed hyperlipidemia Essential hypertension (CMS/HCC) Unspecified essential hypertension Chronic diastolic congestive heart failure (CMS/HCC) Chronic heart failure with preserved ejection fraction (CMS/HCC) Chronic pain syndrome Seizure disorder (CMS/HCC) Unspecified epilepsy without mention of intractable epilepsy Type 2 diabetes mellitus with diabetic polyneuropathy, without long-term current use of insulin (CMS/HCC)- Primary Essential hypertension (CMS/HCC) Unspecified essential hypertension Mixed hyperlipidemia (CMS/HCC) Mixed hyperlipidemia Rhinitis, unspecified type Encounter for screening mammogram for malignant neoplasm of breast- Primary Type 2 diabetes mellitus with diabetic polyneuropathy, without long-term current use of insulin (CMS/HCC) Age-related osteoporosis without current pathological fracture (CMS/HCC) Seizure disorder (CMS/HCC) Unspecified epilepsy without mention of intractable epilepsy Essential hypertension (CMS/HCC) Unspecified essential hypertension Rhinitis, unspecified type Chronic heart failure with preserved ejection fraction (CMS/HCC) Chronic pain syndrome Acute cough Mixed hyperlipidemia (CMS/HCC) Mixed hyperlipidemia Chronic pain syndrome documented in this encounter [facility] HealthcareEvaluation note* Diagnosis Type 2 diabetes mellitus with diabetic polyneuropathy, without long-term current use of insulin (CMS/HCC)- Primary Chronic diastolic congestive heart failure (CMS/HCC) Essential hypertension (CMS/HCC) Unspecified essential hypertension Mixed hyperlipidemia (CMS/HCC) Mixed hyperlipidemia Encounter for Medicare annual wellness exam Age-related osteoporosis without current pathological fracture ([facility]/HCC) Chronic pain syndrome Screening mammogram for breast cancer Type 2 diabetes mellitus with diabetic polyneuropathy, without long-term current use of insulin (CMS/HCC)- Primary Mixed hyperlipidemia (CMS/HCC) Mixed hyperlipidemia Essential hypertension (CMS/HCC) Unspecified essential hypertension Chronic diastolic congestive heart failure (CMS/HCC) Chronic heart failure with preserved ejection fraction (CMS/HCC) Chronic pain syndrome Seizure disorder (CMS/HCC) Unspecified epilepsy without mention of intractable epilepsy Type 2 diabetes mellitus with diabetic polyneuropathy, without long-term current use of insulin (CMS/HCC)- Primary Essential hypertension (CMS/HCC) Unspecified essential hypertension Mixed hyperlipidemia (CMS/HCC) Mixed hyperlipidemia Rhinitis, unspecified type Encounter for screening mammogram for malignant neoplasm of breast- Primary Type 2 diabetes mellitus with diabetic polyneuropathy, without long-term current use of insulin (CMS/HCC) Age-related osteoporosis without current pathological fracture (CMS/HCC) Seizure disorder (CMS/HCC) Unspecified epilepsy without mention of intractable epilepsy Essential hypertension (CMS/HCC) Unspecified essential hypertension Rhinitis, unspecified type Chronic heart failure with preserved ejection fraction (CMS/HCC) Chronic pain syndrome Acute cough Mixed hyperlipidemia (CMS/HCC) Mixed hyperlipidemia Type 2 diabetes mellitus without complication, without long-term current use of insulin- Primary Morbid (severe) obesity due to excess calories (CMS/HCC) Mixed hyperlipidemia (CMS/HCC) Mixed hyperlipidemia Body mass index (BMI) 37.0-37.9, adult Seizure disorder (CMS/HCC) Unspecified epilepsy without mention of intractable epilepsy Chronic pain syndrome Type 2 diabetes mellitus with diabetic polyneuropathy, without long-term current use of insulin (CMS/HCC) Chronic heart failure with preserved ejection fraction (CMS/HCC) Essential hypertension (CMS/HCC) Unspecified essential hypertension Anemia due to other cause, not classified Encounter for screening mammogram for malignant neoplasm of breast Age-related osteoporosis without current pathological fracture (CMS/HCC) Incontinence of urine in female Age-related osteoporosis without current pathological fracture (CMS/HCC) documented in this encounter [facility] HealthcareEvaluation note* Diagnosis Type 2 diabetes mellitus with diabetic polyneuropathy, without long-term current use of insulin (CMS/HCC)- Primary Chronic diastolic congestive heart failure (CMS/HCC) Essential hypertension (CMS/HCC) Unspecified essential hypertension Mixed hyperlipidemia (CMS/HCC) Mixed hyperlipidemia Encounter for Medicare annual wellness exam Age-related osteoporosis without current pathological fracture ([facility]/HCC) Chronic pain syndrome Screening mammogram for breast cancer Type 2 diabetes mellitus with diabetic polyneuropathy, without long-term current use of insulin (CMS/[facility])- Primary Mixed hyperlipidemia (CMS/HCC) Mixed hyperlipidemia Essential hypertension (CMS/HCC) Unspecified essential hypertension Chronic diastolic congestive heart failure (CMS/HCC) Chronic heart failure with preserved ejection fraction (CMS/HCC) Chronic pain syndrome Seizure disorder (CMS/HCC) Unspecified epilepsy without mention of intractable epilepsy Type 2 diabetes mellitus with diabetic polyneuropathy, without long-term current use of insulin (CMS/[facility])- Primary Essential hypertension (CMS/HCC) Unspecified essential hypertension Mixed hyperlipidemia (CMS/HCC) Mixed hyperlipidemia Rhinitis, unspecified type Encounter for screening mammogram for malignant neoplasm of breast- Primary Type 2 diabetes mellitus with diabetic polyneuropathy, without long-term current use of insulin (CMS/HCC) Age-related osteoporosis without current pathological fracture (CMS/HCC) Seizure disorder (CMS/HCC) Unspecified epilepsy without mention of intractable epilepsy Essential hypertension (CMS/HCC) Unspecified essential hypertension Rhinitis, unspecified type Chronic heart failure with preserved ejection fraction (CMS/HCC) Chronic pain syndrome Acute cough Mixed hyperlipidemia (CMS/HCC) Mixed hyperlipidemia Type 2 diabetes mellitus without complication, without long-term current use of insulin- Primary Morbid (severe) obesity due to excess calories (CMS/HCC) Mixed hyperlipidemia (CMS/HCC) Mixed hyperlipidemia Body mass index (BMI) 37.0-37.9, adult Seizure disorder (CMS/HCC) Unspecified epilepsy without mention of intractable epilepsy Chronic pain syndrome Type 2 diabetes mellitus with diabetic polyneuropathy, without long-term current use of insulin (CMS/HCC) Chronic heart failure with preserved ejection fraction (CMS/HCC) Essential hypertension (CMS/HCC) Unspecified essential hypertension Anemia due to other cause, not classified Encounter for screening mammogram for malignant neoplasm of breast Age-related osteoporosis without current pathological fracture (CMS/HCC) Incontinence of urine in female Chronic pain syndrome documented in this encounter [facility] HealthcareEvaluation note* Diagnosis Type 2 diabetes mellitus with diabetic polyneuropathy, without long-term current use of insulin (CMS/[facility])- Primary Chronic diastolic congestive heart failure (CMS/HCC) Essential hypertension (CMS/HCC) Unspecified essential hypertension Mixed hyperlipidemia (CMS/HCC) Mixed hyperlipidemia Encounter for Medicare annual wellness exam Age-related osteoporosis without current pathological fracture ([facility]) Chronic pain syndrome Screening mammogram for breast cancer Type 2 diabetes mellitus with diabetic polyneuropathy, without long-term current use of insulin ([facility])- Primary Mixed hyperlipidemia (CMS/HCC) Mixed hyperlipidemia Essential hypertension (CMS/HCC) Unspecified essential hypertension Chronic diastolic congestive heart failure (CMS/HCC) Chronic heart failure with preserved ejection fraction (CMS/HCC) Chronic pain syndrome Seizure disorder (CMS/HCC) Unspecified epilepsy without mention of intractable epilepsy Type 2 diabetes mellitus with diabetic polyneuropathy, without long-term current use of insulin ([facility])- Primary Essential hypertension (CMS/HCC) Unspecified essential hypertension Mixed hyperlipidemia (CMS/HCC) Mixed hyperlipidemia Rhinitis, unspecified type Encounter for screening mammogram for malignant neoplasm of breast- Primary Type 2 diabetes mellitus with diabetic polyneuropathy, without long-term current use of insulin (CMS/HCC) Age-related osteoporosis without current pathological fracture (CMS/HCC) Seizure disorder (CMS/HCC) Unspecified epilepsy without mention of intractable epilepsy Essential hypertension (CMS/HCC) Unspecified essential hypertension Rhinitis, unspecified type Chronic heart failure with preserved ejection fraction (CMS/HCC) Chronic pain syndrome Acute cough Mixed hyperlipidemia (CMS/HCC) Mixed hyperlipidemia Type 2 diabetes mellitus without complication, without long-term current use of insulin- Primary Morbid (severe) obesity due to excess calories (CMS/HCC) Mixed hyperlipidemia (CMS/HCC) Mixed hyperlipidemia Body mass index (BMI) 37.0-37.9, adult Seizure disorder (CMS/HCC) Unspecified epilepsy without mention of intractable epilepsy Chronic pain syndrome Type 2 diabetes mellitus with diabetic polyneuropathy, without long-term current use of insulin (CMS/HCC) Chronic heart failure with preserved ejection fraction (CMS/HCC) Essential hypertension (CMS/HCC) Unspecified essential hypertension Anemia due to other cause, not classified Encounter for screening mammogram for malignant neoplasm of breast Age-related osteoporosis without current pathological fracture (CMS/HCC) Incontinence of urine in female Type 2 diabetes mellitus with diabetic polyneuropathy, without long-term current use of insulin (CMS/HCC) Seizure disorder ([facility]) Unspecified epilepsy without mention of intractable epilepsy documented in this encounter [facility] Narrative No data available for this section [facility] progress note No data available for this section [facility] Summary Purpose Family History No Family History Records FoundNo Family History Records FoundNo Family History Records FoundNo Family History Records Found No data available for this section Advance Directives No Advanced Directives Records FoundNo Advanced Directives Records FoundNo Advanced Directives Records FoundNo Advanced Directives Records Found Additional Source Comments INFORMATION SOURCE (unrecogn ized section and content) DATE CREATED AUTHOR 08/27/2018 [facility] DATE CREATED AUTHOR AUTHOR'S ORGANIZ ATION 02/26/2022 [facility] DATE CREATED AUTHOR AUTHOR'S ORGANIZ ATION 09/03/2024 [facility] EPIC DATE CREATED AUTHOR AUTHOR'S ORGANIZ ATION 11/21/2024 [facility] Care Teams (unrecognized sec tion and content) Fish Flipper Relationship Specialty Start Date End Date Shaikh Mendez MD PCP - General Internal Medicine 01/22/23 Fish Flipper Relationship Specialty Start Date End Date Shaikh Mendez MD [address] [place] [address] PCP - [employer] 07/19/23 Ciaran Hardin MD [address] [place] [address] PCP - General Family Medicine 01/24/24 Donita Valle NP [address] [place] [address] Nurse Practitioner Family Medicine 01/24/24 Fish Flipper Relationship Specialty Start Date End Date TommiewShaikh aguilar MD [address] [place] [address] PCP - [employer] 07/19/23 Ciaran Hardin MD [address] [place] [address] PCP - General Family Medicine 01/24/24 Donita Valle NP [address] [place] [address] Nurse Practitioner Family Medicine 01/24/24 Fish Flipper Relationship Specialty Start Date End Date Shaikh Mendez MD [address] [place] [address] PCP - [employer] 07/19/23 Ciaran Hardin MD [address] [place] [address] PCP - General Family Medicine 01/24/24 Donita Valle NP [address] [place] [address] Nurse Practitioner Family Medicine 01/24/24 Fish Flipper Relationship Specialty Start Date End Date Shaikh Mendez MD [address] [place] [address] PCP - [employer] 07/19/23 Ciaran Hardin MD [address] [place] [address] PCP - General Family Medicine 01/24/24 Donita Valle NP [address] [place] [address] Nurse Practitioner Family Medicine 01/24/24 Fish Flipper Relationship Specialty Start Date End Date Shaikh Mendez MD [address] [place] [address] PCP - [employer] 07/19/23 Ciaran Hardin MD [address] [place] [address] PCP - General Family Medicine 01/24/24 Donita Valle NP [address] [place] [address] Nurse Practitioner Family Medicine 01/24/24 Fish Flipper Relationship Specialty Start Date End Date Shaikh Mendez MD [address] [place] [address] PCP - [employer] 07/19/23 Ciaran Hardin MD [address] [place] [address] PCP - General Family Medicine 01/24/24 Donita Valle NP [address] [place] [address] Nurse Practitioner Family Medicine 01/24/24 Fish Flipper Relationship Specialty Start Date End Date Shaikh Mendez MD [address] [place] [address] PCP - [employer] 07/19/23 Ciaran Hardin MD [address] [place] [address] PCP - General Family Medicine 01/24/24 Donita Valle NP [address] [place] [address] Nurse Practitioner Family Medicine 01/24/24 Fish Flipper Relationship Specialty Start Date End Date Shaikh Mendez MD [address] [place] [address] PCP - [employer] 07/19/23 Ciaran Hardin MD [address] [place] [address] PCP - General Family Medicine 01/24/24 Donita Valle NP [address] [place] [address] Nurse Practitioner Family Medicine 01/24/24 Fish Flipper Relationship Specialty Start Date End Date Shaikh Mendez MD [address] [place] [address] PCP - [employer] 07/19/23 Ciaran Hardin MD [address] [place] [address] PCP - General Family Medicine 01/24/24 Donita Valle NP [address] [place] [address] Nurse Practitioner Family Medicine 01/24/24 Fish Flipper Relationship Specialty Start Date End Date Shaikh Mendez MD [address] [place] [address] PCP - [employer] 07/19/23 Ciaran Hardin MD [address] [place] [address] PCP - General Family Medicine 01/24/24 Donita Valle NP [address] [place] [address] Nurse Practitioner Family Medicine 01/24/24 Fish Flipper Relationship Specialty Start Date End Date Shaikh Mendez MD [address] [place] [address] PCP - [employer] 07/19/23 Ciaran Hardin MD [address] [place] [address] PCP - General Family Medicine 01/24/24 Donita Valle NP [address] [place] [address] Nurse Practitioner Family Medicine 01/24/24 Fish Flipper Relationship Specialty Start Date End Date Shaikh Mendez MD [address] [place] [address] PCP - [employer] 07/19/23 Ciaran Hardin MD [address] [place] [address] PCP - General Family Medicine 01/24/24 Donita Valle NP [address] [place] [address] Nurse Practitioner Family Medicine 01/24/24 Fish Flipper Relationship Specialty Start Date End Date Shaikh Mendez MD [address] [place] [address] PCP - [employer] 07/19/23 Ciaran Hardin MD [address] [place] [address] PCP - General Family Medicine 01/24/24 Donita Valle NP [address] [place] [address] Nurse Practitioner Family Medicine 01/24/24 Fish Flipper Relationship Specialty Start Date End Date Shaikh Mendez MD [address] [place] [address] PCP - [employer] 07/19/23 Ciaran Hardin MD [address] [place] [address] PCP - General Family Medicine 01/24/24 Donita Valle NP [address] [place] [address] Nurse Practitioner Family Medicine 01/24/24 Fish Flipper Relationship Specialty Start Date End Date Shaikh Mendez MD [address] [place] [address] PCP - [employer] 07/19/23 Ciaran Hardin MD [address] [place] [address] PCP - General Family Medicine 01/24/24 Donita Valle NP [address] [place] [address] Nurse Practitioner Family Medicine 01/24/24 Fish Flipper Relationship Specialty Start Date End Date Shaikh Mendez MD [address] [place] [address] PCP - [employer] 07/19/23 Ciaran Hardin MD [address] [place] [address] PCP - General Family Medicine 01/24/24 Donita Valle NP [address] [place] [address] Nurse Practitioner Family Medicine 01/24/24 Fish Flipper Relationship Specialty Start Date End Date Shaikh Mendez MD [address] [place] [address] PCP - [employer] 07/19/23 Ciaran Hardin MD [address] [place] [address] PCP - General Family Medicine 01/24/24 Donita Valle NP [address] [place] [address] Nurse Practitioner Family Medicine 01/24/24 Fish Flipper Relationship Specialty Start Date End Date Ciaran Hardin MD [address] [place] [address] PCP - General Family Medicine 01/24/24 Donita Valle NP [address] [place] [address] Nurse Practitioner Family Medicine 01/24/24 Reason for Visit (unrecogniz ed section and content) Reason Onset Date Comments Med Refill 04/15/2024 Reason Onset Date Comments Med Refill 05/14/2024 Reason Comments Follow-up Reason Comments Med Refill Reason Onset Date Comments Med Refill 05/26/2024 Reason Onset Date Comments Med Refill 02/21/2024 Reason Onset Date Comments Med Refill 07/14/2024 Reason Onset Date Comments Med Refill 08/28/2024 Reason Onset Date Comments Med Refill 09/16/2024 Reason Onset Date Comments Med Refill 11/20/2024 FOR RECORDS PERTAINING TO PATIENTS WHO ARE OR HAVE BEEN ENROLLED IN A CHEMICAL DEPENDENCY/SUBSTANCEABUSE PROGRAM, SOME INFORMATION MAY BE OMITTED. This clinical summary was aggregated from multiple sources. Caution should be exercised in using it in the provision of clinical care. This summary normalizes information from multiple sources, and as a consequence, information in this document may materially change the coding, format and clinical context of patient data. In addition, data may be omitted in some cases. CLINICAL DECISIONS SHOULD BE BASED ON THE PRIMARY CLINICAL RECORDS. [employer] provides no warranty or guarantee of the accuracy or completeness of information in this document.
[2024-11-25 10:54] LABS: Basophils Absolute Auto 0.1 10^3/uL (0.0-0.1); Basophils Percent Auto 0.9 % (0.2-2.0); Eosinophils Absolute Auto 0.1 10^3/uL (0.0-0.7); Eosinophils Percent Auto 1.6 % (0.9-7.0); Hematocrit 32.8 % (36.0-48.0); Hemoglobin 10.7 g/dL (12.0-16.0); Immature Granulocytes Abs Auto 0.02 10^3/uL (0.00-0.03); Immature Granulocytes Pct Auto 0.3 % (0.0-0.5); Lymphocytes Absolute Auto 2.4 10^3/uL (1.2-3.8); Lymphocytes Percent Auto 31.8 % (20.5-60.0); Mean Corpuscular HGB Conc 32.6 g/dL (29.9-35.2); Mean Corpuscular Hemoglobin 27.4 pg (26.7-34.0); Mean Corpuscular Volume 84.1 fL (81.0-99.0); Mean Platelet Volume 9.3 fL (9.5-13.5); Monocytes Absolute Auto 0.6 10^3/uL (0.3-0.8); Monocytes Percent Auto 8.4 % (1.7-12.0); Neutrophils Absolute Auto 4.3 10^3/uL (1.4-6.5); Platelet Count 244 10^3/uL (150-450); Red Cell Distribution Width 15.1 % (11.0-15.0); White Blood Count 7.6 10^3/uL (4.0-11.0)
[2024-11-25 11:02] LABS: Alanine Aminotransferase 22 U/L (14-59); Albumin Globulin Ratio 0.9; Albumin Level 3.4 g/dL (3.4-5.0); Alkaline Phosphatase 85 U/L (46-116); Anion Gap 12.2; Aspartate Amino Transferase 16 U/L (15-37); Bilirubin Total 0.3 mg/dL (0.2-1.0); Calcium 9.7 mg/dL (8.5-10.1); Carbon Dioxide 29.7 mmol/L (21.0-32.0); Chloride 103 mmol/L (98-107); Chol HDL Ratio 2.1; Cholesterol 159 mg/dL (<=200); Estimated GFR (African America >60 (>=60 mL/min/1.73m^2); Estimated GFR (Non-African Ame >60 (>=60 mL/min/1.73m^2); Glucose 138 mg/dL (74-106); HDL Cholesterol 76 mg/dL (40-60); Potassium 3.9 mmol/L (3.5-5.1); Sodium 141 mmol/L (136-145); Total Protein 7.4 g/dL (6.4-8.2); Triglycerides 44 mg/dL (<=150); VLDL CHOLESTEROL 8.8 mg/dL
[2024-11-25 11:03] LABS: Creatinine Urine Random 146.86 mg/dL (20.00-300.00); Microalbumin Urine Random <1.3 mg/dL (<=30.0)
[2024-11-25 11:17] LABS: Percent Iron Saturation 25.6 %
[2024-11-25 11:30] LABS: Bilirubin Urine NEGATIVE (NEGATIVE); Blood Urine NEGATIVE (NEGATIVE); Clarity Urine CLEAR (CLEAR); Color Urine YELLOW (YELLOW); Glucose Urine UA NEGATIVE (NEGATIVE); Ketones Urine NEGATIVE (NEGATIVE); Leukocyte Esterase Urine NEGATIVE (NEGATIVE); Nitrite Urine POSITIVE (NEGATIVE); Protein Urine NEGATIVE (NEG/TRACE); Specific Gravity Urine 1.015 (1.005-1.025); Urobilinogen Urine 0.2 EU/dL (0.2-1.0)
[2024-11-25 11:34] LABS: Urine Microscopic Indicated YES
[2024-11-25 12:41] LABS: Bacteria Urine LARGE #/HPF (NONE SEEN); Crystals Seen? Seen #/HPF (None Seen); Mucus Urine NONE SEEN (NONE SEEN); RBC Urine 0-2 #/HPF (0-2); Squamous Epithelial Cell Urine MANY #/LPF (NONE/RARE); WBC Urine 0-2 #/HPF (NONE SEEN)
[2024-11-25 12:42] LABS: Calcium Oxalate Crystals Urine MODERATE; Cast Seen? NONE SEEN #/LPF (NONE SEEN)
[2024-11-26 05:09] LABS: Transferrin 186 mg/dL (192-364)
== END 2024-11-25 09:43 | disposition home or self-care (01) ==
LOC: LAB 09:47
PROVIDERS: PCP Nurse Practitioner; Visit Provider Nurse Practitioner
DX: E78.2 Mixed hyperlipidemia (principal); E11.9 Type 2 diabetes mellitus without complications; I10 Essential (primary) hypertension; D64.89 Other specified anemias
CPT/HCPCS: 36415; 80053; 80061; 81001; 82043; 82570; 82728; 83540; 83550; 84466; 85025

== ENCOUNTER 2025-04-14 09:28 | Outpatient (OUT) | payer MEDICARE, SELFPAY ==
--- OUTSIDE RECORDS SUMMARY | 2025-04-14 09:35 | XMS_ITS | Clinical Summary ---
Author Organization [facility] Address [address] [place] [address] Care Team Providers Care Retail Commission Sales Associate Name Role Phone Unavailable Primary Care Provider Unavailabl e Social History Tobacco UseTypesPacks/DayYears UsedDateSmoking Tobacco: Never Assessed CommentsUnknownSex and Gender InformationValueDate RecordedSex Assigned at Not on fileLegal CjtLnqjhu36/29/2022 9:42 PM EDTGender IdentityNot on fileSexual OrientationNot on file Last Filed Vital Signs Vital SignReadingTime TakenCommentsBlood Kkdygbtb582/7603 1:03 PM EDT Aozcg6813 1:02 PM EDTTemperature--Respiratory Rate--Oxygen Rvemmtgmrq52% 08/26/2018 1:02 PM EDTInhaled Oxygen Concentration--Fmoglk50.2 kg (212 lb) 08/26/2018 1:02 PM QTHOvjuqr200.1 cm (5' 5 )08/26/2018 1:02 PM EDTBody Mass Index35.2803 1:02 PM EDT Plan of Treatment Not on file
--- OUTSIDE RECORDS SUMMARY | 2025-04-14 09:35 | XMS_ITS | Clinical Summary ---
Author Organization [facility] Address [address] [place] [address] Care Team Providers Care Java Web User Interface Developer Name Role Phone Ciaran Hardin MD Primary Care Provider [phone] Donita Valle HEAT READER Unavailable [phone] Allergies Active AllergyReactionsCriticalityNoted DateCommentsAspirinNausea OnlyMedium 08/10/2022 Patient states baby aspirin does not bother her. Medications MedicationSigDispense QuantityRefillsLast FilledStart DateEnd DateStatus aspirin 81 MG EC tablet 1 (one) time each day at the same time.Active co-enzyme Q-10 30 MG capsule 1 (one) time each day at the same time.Active Multiple Vitamins-Minerals (Centrum Silver) chewable tablet as directed OrallyActive timolol (Betimol) 0.5 % ophthalmic solution 1 (one) time each day at the same timeActive cholecalciferol (Vitamin D-3) 25 MCG (1000 UT) capsule Take 2,000 Units by mouth in the morning.Active latanoprost (Xalatan) 0.005 % ophthalmic solution INSTILL 1 DROP INTO EACH EYE EVERY NIGHT AT ZSZLTBY80/27/2024Active Calcium Carb-Cholecalciferol (OYSCO 500 + D) 500-5 MG-MCG tablet Indications:Age-related osteoporosis without current pathological fractureTake 1 tablet by mouth in the morning and 1 tablet before bedtime. 180 tablet 4Active carvedilol (Coreg) 25 MG tablet Indications:Essential hypertensionTake 1 tablet (25 mg) by mouth in the morning and 1 tablet (25 mg) in the evening. Take with meals. 180 tablet 5Active losartan (Cozaar) 50 MG tablet Indications:Essential hypertensionTake 1 tablet (50 mg) by mouth in the morning and 1 tablet (50 mg) before bedtime. 180 tablet 5Active carBAMazepine (TEGretol) 200 MG tablet Indications:Seizure disorder (HCC)Take 1 tablet (200 mg) by mouth in the morning and 1 tablet (200 mg) before bedtime. 180 tablet 5Active trospium (Sanctura) 20 MG tablet 5Active timolol (Timoptic) 0.5 % ophthalmic solution INSTILL 1 DROP INTO BOTH EYES ONCE DAILY5Active glipiZIDE (Glucotrol) 5 MG tablet Indications:Type 2 diabetes mellitus with diabetic polyneuropathy, without long- term current use of insulin ([facility])Take 1 tablet (5 mg) by mouth Daily 90 tablet 5Active Blood Glucose Monitoring Suppl (Consilium Softwareuch Verio Reflect) w/Device kit Active glucose blood (Perfint HealthcareTouch Verio) test strip Indications:Type 2 diabetes mellitus without complication, without long-term current use of insulin ([facility])Once daily use. Use as instructed 100 strip 1105Active Blood Glucose Monitoring Suppl (Blood Glucose Monitor System) w/Device kit Indications:Type 2 diabetes mellitus without complication, without long-term current use of insulin ([facility])1 each Daily 1 (one) time each day 1 kit 506/6Active alendronate (Fosamax) 70 MG tablet Indications:Age-related osteoporosis without current pathological fractureTake 1 tablet (70 mg) by mouth every 7 (seven) days Take in the morning with a full glass of water,on an empty stomach, and do not take anything else by mouth or lie down for the next 30 min.TAKE 1 TABLET BY MOUTH 1 TIME A WEEK 12 tablet 5Active traMADol (Ultram) 50 MG tablet Take 50 mg by mouth Daily as needed for severe pain5Active rosuvastatin (Crestor) 20 MG tablet Indications:Mixed hyperlipidemiaTake 1 tablet (20 mg) by mouth at bedtime 90 tablet 5Active furosemide (Lasix) 40 MG tablet Indications:Chronic heart failure with preserved ejection fraction (HCC)Take 1 tablet (40 mg) by mouth Daily 90 tablet 5Active gabapentin (Neurontin) 300 MG capsule Indications:Chronic pain syndromeTake 1 capsule (300 mg) by mouth at bedtime 90 capsule 5Active amLODIPine (Norvasc) 5 MG tablet Indications:Essential hypertension,Chronic heart failure with preserved ejection fraction (HCC)Take 1 tablet (5 mg) by mouth Daily 90 tablet 5Active metFORMIN (Glucophage) 500 MG tablet Indications:Type 2 diabetes mellitus with diabetic polyneuropathy, without long- term current use of insulin (HCC)Take 1 tablet (500 mg) by mouth in the morning and 1 tablet (500 mg) before bedtime. 180 tablet 5Active Active Problems ProblemNoted DateDiagnosed DateIDA (iron deficiency anemia)11/27/2024 Assessment & Plan (01/12/2025 7:03 AM EDT): 11/25/24; H/H 10.7 and 32.8 with RBC 3.90 and iron 55 (05/11 85) H/H pretty stable dating back to 2022 Qday iron makes constipated Will resume at every other day Recheck labs in 8 weeks- (due in about 2 weeks or so) Assessment & Plan (11/27/2024 1:57 PM EDT): 11/25/24; H/H 10.7 and 32.8 with RBC 3.90 and iron 55 (05/11 85) H/H pretty stable dating back to 2022 Qday iron makes constipated Will resume at every other day Recheck labs in 8 weeks Acute cystitis without hllzzuqja95/12/2025 Assessment & Plan (11/27/2024 1:56 PM EDT): +nitrates Amox 500mg BID for 10 days Body mass index (BMI) 37.0-37.9, adult09/01/2024Morbid (severe) obesity due to excess sbnisukh20/17/2025 Assessment & Plan (01/12/2025 7:03 AM EDT): Discussed with patient their BMI (actual, verses recommended). We have also discussed lifestyle modifications: attempts to perform physical activity as chronic conditions allow, also to monitor dietary intake: increasing protein/fruits/veggies and lowering carb intake (unless contraindicated). Limit sodas, juices, and sugary drinks. Assessment & Plan (11/27/2024 6:41 AM EDT): Discussed with patient their BMI (actual, verses recommended). We have also discussed lifestyle modifications: attempts to perform physical activity as chronic conditions allow, also to monitor dietary intake: increasing protein/fruits/veggies and lowering carb intake (unless contraindicated). Limit sodas, juices, and sugary drinks. Assessment & Plan (09/01/2024 7:12 AM EDT): Discussed with patient their BMI (actual, verses recommended). We have also discussed lifestyle modifications: attempts to perform physical activity as chronic conditions allow, also to monitor dietary intake: increasing protein/fruits/veggies and lowering carb intake (unless contraindicated). Limit sodas, juices, and sugary drinks. Incontinence of urine in djfnlb6809/01/20248709Cstabynh61/16/2024Chronic heart failure with preserved ejection qhjugsrz30/17/2024 Assessment & Plan (01/12/2025 3:06 PM EDT): Current meds: b cora, losartan, lasix, amlodipine Assessment & Plan (11/27/2024 6:41 AM EDT): Current meds: b cora, losartan Assessment & Plan (09/01/2024 2:14 PM EDT): Current meds: b cora, losartan Assessment & Plan (12/03/2023 1:59 PM EDT): LE edema, worse than usual. No SOB, orthopnea/PND. Asked patient to use extra lasix as needed for LE edema Otherwise c/w lasix 40 mg daily. Seizure ymnivcyy60/17/2024 Assessment & Plan (11/27/2024 6:41 AM EDT): Currently taking tegretol as well gabapentin Less than 10 years Has had MRI and EEG Does not follow with neurology Assessment & Plan (09/01/2024 2:14 PM EDT): Currently taking tegretol as well gabapentin Less than 10 years Has had MRI and EEG Does not follow with neurology Assessment & Plan (12/03/2023 1:57 PM EDT): Seizure free for over 5 years minimum. On carbamazepine. Encounter for screening mammogram for malignant neoplasm of pzwjuq5305/22/2023 Assessment & Plan (01/12/2025 3:06 PM EDT): Has been ordered, has not scheduled Assessment & Plan (05/22/2023 3:02 PM EST): Last mammogram was in 2020. Reordered Age-related osteoporosis without current pathological obykgfip08/05/2023 Assessment & Plan (11/27/2024 6:41 AM EDT): Calcium/vit D Check DEXA Assessment & Plan (09/01/2024 7:16 AM EDT): Calcium/vit D Check DEXA Assessment & Plan (05/22/2023 3:01 PM EST): On Alendronate. Tolerating it. C/w same Chronic pain fcgjqyzc24/05/2023 Assessment & Plan (01/12/2025 7:06 AM EDT): Current meds: tramadol once a day OAR[place] reviewed This is for neuropathy Assessment & Plan (11/27/2024 6:41 AM EDT): Current meds: tramadol once a day [place] reviewed This is for neuropathy Assessment & Plan (09/01/2024 2:12 PM EDT): [...] abuse, overdose. Encounter for Medicare annual wellness exam05/22/2023 Assessment & Plan (11/27/2024 6:42 AM EDT): Reviewed Ht/Wt/BMI Recommend eye exam yearly Recommend dental exams twice a year Balance work/leisure activities Exercises is recommended most days of the week (appropriate as chronic conditions allow) Follow up yearly and prn Assessment & Plan (05/22/2023 3:03 PM EST): Patient here for medicare wellness. Recent COVID infection. Recovered and doing well now. Colonoscopy 2021- repeat in 5 years as polyps on exam Ordered mammogram - last one in 21 Refused Flu vaccine Recommended to take Pneumonia vaccine. Type 2 diabetes mellitus without eybihigyqfzlb71/16/2023 Assessment & Plan (01/12/2025 2:45 PM EDT): Check blood sugars daily, notify if <70 or >200. Take medications (pills or insulin) as directed. Monitor for s/s of hypoglycemia (sweaty, dizziness, nausea, vomiting, or shakiness). Watch for increase in thirst, urination, or appetite. Inspect feet frequently monitoring for open wounds , andalso recommend yearly eye exam. Pt should attempt to remain as physically active as chronic conditions allow, as well as trying to follow a diet low in carbohydrates, and simple sugars. Current meds: asa, arb, ASTUDILLO, metfromin A1c 7.2% 01/12/25, 7.3 09/01/24 Assessment & Plan (11/27/2024 6:42 AM EDT): Check blood sugars daily, notify if <70 or >200. Take medications (pills or insulin) as directed. Monitor for s/s of hypoglycemia (sweaty, dizziness, nausea, vomiting, or shakiness). Watch for increase in thirst, urination, or appetite. Inspect feet frequently monitoring for open wounds , andalso recommend yearly eye exam. Pt should attempt to remain as physically active as chronic conditions allow, as well as trying to follow a diet low in carbohydrates, and simple sugars. Current meds: asa, arb, ASTUDILLO, metfromin A1c 7.3 09/01/24 Assessment & Plan (09/01/2024 2:25 PM EDT): Check blood sugars daily, notify if <70 or >200. Take medications (pills or insulin) as directed. Monitor for s/s of hypoglycemia (sweaty, dizziness, nausea, vomiting, or shakiness). Watch for increase in thirst, urination, or appetite. Inspect feet frequently monitoring for open wounds , andalso recommend yearly eye exam. Pt should attempt [...] noted. Type 2 diabetes mellitus with diabetic poodvicebufgsz43/16/2023 Overview (03/03/2024): Jardiance 10mg samples given Lot# [id number] Exp: 07/13 x 3 Lot# [id number] Exp: 07/13 x 1 Will consider initiating Jardiance- advised pt not to initiate until after A1C results; Will call with results and direction. Assessment & Plan (01/12/2025 7:06 AM EDT): Control DM Freq inspection of feet, recommend proper fitting shoes Gabapentin, tramadol OARRS reviewed Assessment & Plan (11/27/2024 6:41 AM EDT): Control DM Freq inspection of feet, recommend proper fitting shoes Gabapentin, tramadol OARRS reviewed Assessment & Plan (09/01/2024 4:27 PM EDT): [...] home glucose monitoring noted. Check labs Essential iewviycpemcx02/07/2014 Assessment & Plan (01/12/2025 7:02 AM EDT): Please check blood pressure daily and record DASH diet Limit caffeine Take medication as directed Contact office if chest pain, pressure, dizziness, shortness of breath, swelling legs Recommend slow position changes Current meds: asa, b cora, arb,amlodipine Assessment & Plan (11/27/2024 1:56 PM EDT): Please check blood pressure daily and record DASH diet Limit caffeine Take medication as directed Contact office if chest pain, pressure, dizziness, shortness of breath, swelling legs Recommend slow position changes Current meds: asa, b cora, arb, Add amlodipine at 2.5mg daily Fu in 6 weeks Assessment & Plan (09/01/2024 7:11 AM EDT): [...] experiences orthostatic symptoms or persistently elevated BP. Vjscxwlmxwzpyl89/07/2014 Assessment & Plan (09/01/2024 4:44 PM EDT): [...] lowering drugs in the past. Resolved Problems ProblemNoted DateDiagnosed DateResolved DateOther specified hsaaacz0209/01/2024 5Chronic congestive heart foxzsvk46/ Assessment & Plan (12/03/2023 2:00 PM EDT): Doing well. LE worse than usual. Use lasix 40 q12 as needed for LE edema. Otherwise use lasix 40 mg daily. Assessment & Plan (05/22/2023 3:00 PM EST): Doing well. More or less Euvolemic. C/w Lasix for volume control. Encounters DateTypeDepartmentCare PkemXxqdcoqsfoq16/28/2025 2:20 PM EDTOffice Visit [facility] [address] [place] [address] Jeannine Aldana NP Essential hypertension (Primary Dx); Type 2 diabetes mellitus without complication, without long-term current use of insulin ([facility]); Morbid (severe) obesity due to excess calories ([facility]); Iron deficiency anemia, unspecified iron deficiency anemia type; Chronic pain syndrome; Type 2 diabetes mellitus with diabetic polyneuropathy, without long-term current use of insulin ([facility]); Encounter for screening mammogram for malignant neoplasm of breast; Mixed hyperlipidemia ; Chronic heart failure with preserved ejection fraction (HCC)5Bamboo flowsheet [facility] [address] [place] [id number] Jeannine Aldana NP from Last 3 Months Family History Medical HistoryRelationNameCommentsBone cancerFatherCancerFatherNo Known ProblemsMaternal GrandmotherHeart diseaseMotherHypertensionMotherStrokeMother DiabetesSiblingRelationNameStatusCommentsFatherDeceasedMaternal Grandmother MotherDeceasedSiblingAlive Social History Tobacco UseTypesPacks/DayYears UsedDateSmoking Tobacco: FormerCigarettesQuit: 1998Passive Smoke Exposure: PastSmokeless Tobacco: Never Tobacco Cessation:Counseling Given: Not Answered Comments:Quit smoking 20 years ago Alcohol UseStandard Drinks/WeekCommentsNever0 (1 standard drink = 0.6 oz pure alcohol)Caffeine intake: noneHumiliation, Afraid, Rape, and Kick questionnaire AnswerDate RecordedWithin the last year, have you been afraid of your partner or ex-partner?No05/22/2023Within the last year, have you been humiliated or emotionally abused in other ways by your partner or ex-partner?No05/22/2023 Within the last year, have you been kicked, hit, slapped, or otherwise physically hurt by your partner or ex-partner?No05/22/2023Within the last year, have you been raped or forced to have any kind of sexual activity by your part ner or ex-partner?No05/22/2023Social Connection and Isolation PanelAnswerDate RecordedIn a typical week, how many times do you talk on the phone with family, friends, or neighbors?More than three times a week05/22/2023How often do you get together with friends or relatives?More than three times a week05/22/2023How often do you attend oriental orthodox or latter-day services?More than 4 times per year 05/22/2023o you belong to any clubs or organizations such as oriental orthodox groups, unions, fraternal or athletic groups, or school groups?Yes05/22/2023How often do you attend meetings of the clubs or organizations you belong to?More than 4 times per year05/22/2023re you , , , , never , or living with a partner?Ubizqvqc64/05/2023UDIT-CAnswerDate Recorded Frequency of Alcohol ConsumptionNot on file05/22/2023Q2: How many drinks containing alcohol do you have on a typical day when you are drinking?Patient does not drink05/22/2023Q3: How often do you have six or more drinks on one occasion?Never05/22/2023Overall Financial Resource Strain (CARDIA)AnswerDate RecordedHow hard is it for you to pay for the very basics like food, housing, medical care, and heating?Somewhat hard05/22/2023HQ-2AnswerDate RecordedPatient Health Questionnaire-2 Jaqvg656Fin[facility] [place] of Occupational Health - Occupational Stress QuestionnaireAnswerDate RecordedDo you feel stress - tense, restless, nervous, or anxious, or unable to sleep at night because your mind is troubled all the time - these days?Not at all05/22/2023Exercise Vital SignAnswerDate RecordedOn average, how many days per week do you engage in moderate to strenuous exercise (like a brisk walk)?0 days05/22/2023On average, how many minutes do you engage in exercise at this level?0 min05/22/2023Hunger Vital SignAnswerDate RecordedWithin the past 12 months, you worried that your food would run out before you got the money to buymore.Never true05/22/2023 Within the past 12 months, the food you bought just didn't last and you didn't have money to get more.Never true05/22/2023RAPARE - TransportationAnswerDate RecordedIn the past 12 months, has lack of transportation kept you from medical appointments or from getting medications?No05/22/2023In the past 12 months, has lack of transportation kept you from meetings, work, or from getting things needed for daily living?No05/22/2023CommentsNoSex and Gender Information ValueDate RecordedSex Assigned at BirthNot on fileLegal KzlLzaujy64/15/2023 9:28 PM EDTGender IdentityNot on fileSexual OrientationNot on file Last Filed Vital Signs Vital SignReadingTime TakenCommentsBlood Sinkascs126/8007 2:27 PM EDT Xcrze2380 2:27 PM NFEVymjpvzuxfr99.9 ??C (98.5 ??F)01/12/2025 2:27 PM EDTRespiratory Aqya623001/12/2025 2:27 PM EDTOxygen Sgkrcuhhxg08%01/12/2025 2:27 PM EDTInhaled Oxygen Concentration--Pragul714 kg (230 lb 6.4 oz)01/12/2025 2:27 PM DUHIatztk728.1 cm (5' 5 )09/01/2024 1:48 PM EDTBody Mass Index38.34009/01/2024 1:48 PM EDT Plan of Treatment Health MaintenanceDue DateLast DoneCommentsCT Fujcaojsgqst1950FIT-DNA 1950FIT1950FOBT1950 8359Jhuychqvdtrkn1950Pneumococcal Vaccine: 65+ Years (1 of 1 - PCV)06/02/2025Postponed from 02/07/2000 (Patient Refused)Izqurwwrihf75/01/203305/06/2022, 10/16/2022olorectal Cancer Screening 10/16/2032Influenza VaccineDiscontinued Procedures Procedure NamePriorityDate/TimeAssociated DiagnosisCommentsPOCT GLYCOSYLATED HEMOGLOBIN (HGB A1C)Sjuoyjj7301/12/2025 2:44 PM EDT Type 2 diabetes mellitus without complication, without long-term current use of insulin (HCC) Iron deficiency anemia, unspecified iron deficiency anemia type from Last 3 Months Results * (ABNORMAL) POCT glycosylated hemoglobin (Hb A1C) docked device (01/12/2025 2:44 PM EDT)ComponentValueRef RangeTest MethodAnalysis TimePerformed At Pathologist SignatureHemoglobin A1C7.2Specimen (Source)Anatomical Location / LateralityCollection Method / VolumeCollection TimeReceived TimeBloodVenous blood specimen / Wkffqwg0801/12/2025 2:44 PM EDT Narrative Authorizing ProviderResult TypeResult StatusLisa [facility] NPPOINT OF CARE TEST ENTER/EDIT ORDERABLESFinal Result from Last 3 Months Insurance Care Teams Team MemberRelationshipSpecialtyStart DateEnd Date Ciaran Hardin MD PCP - GeneralFanely Medicine01/24/24 Donita Valle NP Nurse Practitionermily Medicine01/24/24
--- OUTSIDE RECORDS SUMMARY | 2025-04-14 09:35 | XMS_ITS | Clinical Summary ---
Author Organization Collisionable tem Address [facility] [place]-[id number] [address] [place] [address] Care Team Providers Care Wastewater Supervisor Name Role Phone Shaikh DI Mendez Primary Care Provider [phone] Allergies Active AllergyReactionsCriticalityNoted DateCommentsAspirinNauseaMedium 08/10/2022 Patient states baby aspirin does not bother her. Medications MedicationSigDispense QuantityRefillsLast FilledStart DateEnd DateStatus spironolactone (ALDACTONE) 25 mg tablet Indications:edema,unknownTake 25 mg by mouth daily Indications: Edema, unknown. Active carBAMazepine (TEGretol) 200 mg tablet Indications:unknownTake 1 tablet (200 mg total) by mouth in the morning and 1 tablet (200 mg total) before bedtime. Indications: unknown.Active amLODIPine (NORVASC) 10 mg tablet Indications:hypertensionTake 1 tablet (10 mg total) by mouth in the morning. Indications: high blood pressure.Active losartan (COZAAR) 50 mg tablet Indications:hypertensionTake 1 tablet (50 mg total) by mouth in the morning and 1 tablet (50 mg total) before bedtime. Indications: high blood pressure.Active metFORMIN (GLUCOPHAGE) 500 mg tablet Indications:type 2 diabetes mellitusTake 1 tablet (500 mg total) by mouth daily with breakfast Indications: type 2 diabetes mellitus.Active insulin NPH and regular human (NovoLIN 70-30) 100 unit/mL (70-30) injection Indications:type 2 diabetes mellitusInject 7 Units under the skin 2 (two) times a day before meals Indications: TYPE 2 DIABETES MELLITUS.Active atorvastatin (LIPITOR) 40 mg tablet Indications:hypercholesterolemiaTake 1 tablet (40 mg total) by mouth in the morning. Indications: high cholesterol.Active traMADol ER (ULTRAM-ER) 200 MG 24 hr tablet Take 50 mg by mouth nightly.Active carvedilol (COREG) 12.5 mg tablet Indications:hypertensionTake 1 tablet (12.5 mg total) by mouth in the morning and 1 tablet (12.5 mg total) in the evening. Take with meals. Indications: high blood pressure.Active alendronate (FOSAMAX) 35 mg tablet Indications:unknownTake 1 tablet (35 mg total) by mouth every 7 days Indications: unknown. Take in the morning with a full glass of water, on an empty stomach, and do not take anything else by mouth or lie down for thenext 30 min.Active timolol (BETIMOL) 0.5 % ophthalmic solution Indications:unknownAdminister 1 drop to both eyes in the morning. Indications: unknown.Active IRON POLYSACCHARIDE COMPLEX (FERREX 150 ORAL) Indications:unknownTake 1 tablet by mouth every other day Indications: unknown. Active cholecalciferol, vitamin D3, 25 mcg (1,000 unit) capsule Indications:unknownTake 2 capsules (2,000 Units total) by mouth in the morning. Indications: unknown.Active FOLIC ACID/MULTIVIT-MIN/LUTEIN (CENTRUM SILVER ORAL) Take 1 tablet by mouth daily.Active aspirin 81 mg Indications:myocardial reinfarction preventionTake 1 tablet (81 mg total) by mouth in the morning. Indications: myocardial reinfarction prevention.Active cinnamon bark (CINNAMON ORAL) Take 2 capsules by mouth in the morning.Active acetaminophen (TYLENOL EXTRA STRENGTH) 500 mg tablet Take 1 tablet (500 mg total) by mouth every 6 (six) hours as needed.Active furosemide (LASIX) 40 mg tablet Take 1 tablet (40 mg total) by mouth daily.05/15/2022ctive gabapentin (NEURONTIN) 300 mg capsule Take 1 capsule (300 mg total) by mouth every 12 (twelve) hours.07/13/2022ctive CALCIUM 500 WITH D 500 mg-10 mcg (400 unit) per tablet Take 1 tablet by mouth in the morning and 1 tablet before bedtime.08/03/2022 Active Active Problems ProblemNoted DateDiagnosed DateAdenomatous polyp of transverse colon07/01/2018 Diverticulosis large intestine w/o perforation or abscess w/o cjrabpfu33/14/2019 Severe obesity (BMI 35.0-39.9) with eozmevypspi67/10/2019Encounter for colonoscopy due to history of adenomatous colonic tmbmix3006/06/2018Steroid- induced rxljkrorcssvx06/09/2016Vision dktdhfl7104/21/2016Essential hypertension 04/21/2016Insulin dependent diabetes ynbjzsqa10/04/2016Vision loss of right eye 04/21/2016 Immunizations ImmunizationAdministration DatesNext DueCOVID-19, mRNA, LNP-S, PF, 100mcg/0.5mL Dose09/17/2020,08/20/2020 Family History Medical HistoryRelationNameCommentsNo Known ProblemsBrother 1No Known Problems Brother 2CancerBrother 3CancerFatherStrokeMotherBreast cancerSisterRelationName StatusCommentsBrother 1AliveBrother 2AliveBrother 3Deceased (Age 59)Father (Age 81)MotherDeceased (Age 82)SisterDeceased (Age 50) Social History Tobacco UseTypesPacks/DayYears UsedDateSmoking Tobacco: FormerCigarettes0.56 Smokeless Tobacco: Never Tobacco Cessation:Counseling Given: Not Answered Alcohol UseStandard Drinks/WeekCommentsNo0 (1 standard drink = 0.6 oz pure alcohol)AUDIT-CAnswerDate RecordedFrequency of Alcohol ConsumptionNever 06/06/2018Average Number of DrinksNot on file06/06/2018Frequency of Binge DrinkingNot on file06/06/2018ChildcareAnswerDate RecordedChildcareUnknown 11/27/2018EmploymentAnswerDate YlwovtatJnhxliicfuSvsmidd46/12/2019Hunger ScreeningAnswerDate RecordedWithin the past 12 months we worried whether our food would run out before we got money to buy more.Never True08/10/2022Within the past 12 months the food we bought just didn't last and we didn't have money to get more.Never True3Purpose - LifeAnswerDate RecordedPurpose and direction in ukwqCckxxea46/11/2021CommentsNoSex and Gender Information ValueDate RecordedSex Assigned at BirthNot on fileLegal KjzCxozdb56/06/2015 11:40 AM EDTGender IdentityNot on fileSexual OrientationNot on file Last Filed Vital Signs Vital SignReadingTime TakenCommentsBlood Vvbtquvw456/8005 11:05 AM EDT Ozpda203910/16/2022 11:05 AM QJNCseejsthmec47.8 ??C (98.2 ??F)10/16/2022 8:39 AM EDTRespiratory Golc439510/16/2022 11:05 AM EDTOxygen Kmfhzccgkr08%10/16/2022 11:05 AM EDTInhaled Oxygen Concentration--Rfqyij46.8 kg (220 lb)10/16/2022 8:39 AM EDT Qpbxez762.1 cm (5' 5 )10/16/2022 8:39 AM EDTBody Mass Index36.61010/16/2022 8:39 AM EDT Plan of Treatment Health MaintenanceDue DateLast DoneCommentsDepression Uvdpyfvyi29/22/1962Tobacco Vpadlrgks99/22/1962DTaP,Tdap and Td Vaccines (1 - Tdap)1969Zoster (Shingles) Vaccine (1 of 2)02/07/2000Fall Risk Zbjzsbkuc74/22/2015COVID-19 Vaccine ( season)/, 05/17/2021, 09/17/2020, Additional history existsInfluenza Mgnolpx52/01/0849Nfsssepzjzz04/01/2028 10/16/2022, 10/16/2022, 12/08/2016 Medical Devices Not on file Procedures Procedure NamePriorityDate/TimeAssociated UxemswwdaVuovskfcAFGRZOHQFEF22/01/2023 10:13 AM EDT from Last 3 Months or Most Recently Relevant to Health Maintenance Results * Colonoscopy (10/16/2022 10:13 AM EDT)Specimen (Source)Anatomical Location / LateralityCollection Method / VolumeCollection TimeReceived Time10/16/2022 10:13 AM EDT Narrative PM CARDIOVASCULAR - 10/16/2022 10:51 AM EDT [facility] Patient Name: Sonja Avendaño ?? Procedure Date No Time: 10/16/2022 ?? CSN : [id number] Date of : 1950 Admit Type: Outpatient Age: 72 Room: [facility] OR Gender: Female Note Status: Finalized Attending MD: Philippe Oscar DO, Procedure: ? Colonoscopy Indications: ? Screening for colorectal malignant neoplasm, High risk ? colon cancer surveillance: Personal history of colonic ? polyps, Family history of colon cancer Providers: ? Philippe Oscar DO Referring MD: ?Philippe Oscar DO Medicines: ? Propofol per Anesthesia Complications: ? No immediate complications. Procedure: ? After I obtained informed consent, the scope was ? passed under direct vision. Throughout the procedure, ? the patient's blood pressure, pulse, and oxygen ? saturations were monitored continuously. The [facility] ? PCF-H190DL # [id number] PEDIATRIC COLONOSCOPE was ? introduced through the anus and advanced to the cecum, ? identified by appendiceal orifice and ileocecal valve. ? The colonoscopy was performed with moderate difficulty ? due to restricted mobility of the colon. Successful ? completion of the procedure was aided by applying ? abdominal pressure. The patient tolerated the ? procedure well. The quality of the bowel preparation ? was adequate to identify polyps greater than 5 mm in ? size. Findings: ? The perianal and digital rectal examinations were normal. ? A few small-mouthed diverticula were found in the sigmoid colon. ? Three sessile polyps were found in the distal rectum, mid sigmoid colon ? and distal ascending colon. The polyps were 4 to 5 mm in size. These ? polyps were removed with a hot snare. Resection and retrieval were ? complete. ? The exam was otherwise without abnormality on direct and retroflexion ? views. Estimated Blood Loss: ??Estimated blood loss: none. Impression: ?- Diverticulosis in the sigmoid colon. ? - Three 4 to 5 mm polyps in the distal rectum, in the ? mid sigmoid colon and in the distal ascending colon, ? removed with a hot snare. Resected and retrieved. ? - The examination was otherwise normal on direct and ? retroflexion views. Recommendation: ?- Discharge patient to home. ? - Patient has a contact number available for ? emergencies. The signs and symptoms of potential ? delayed complications were discussed with the patient. ? Return to normal activities tomorrow. Written ? discharge instructions were provided to the patient. ? - High fiber diet for the rest of the patient's life. ? - Repeat colonoscopy in 5 years for surveillance based ? on pathology results. ? - Return to my office PRN. Procedure Code(s): ? --- Professional --- ? 93530, Colonoscopy, flexible; with removal of ? tumor(s), polyp(s), or other lesion(s) by snare ? technique Diagnosis Code(s): ? --- Professional --- ? Z12.11, Encounter for screening for malignant neoplasm of colon ? Z86.010, Personal history of colonic polyps ? D12.8, Benign neoplasm of rectum ? D12.5, Benign neoplasm of sigmoid colon ? D12.2, Benign neoplasm of ascending colon ? Z80.0, Family history of malignant neoplasm of digestive organs ? K57.30, Diverticulosis of large intestine without perforation or abscess ? without bleeding CPT copyright 2021 [employer]. All rights reserved. The codes documented in this report are preliminary and upon rubber heel and sole press tender review may be revised to meet current compliance requirements. DO Philippe Mendes DO 10/16/2022 10:50:41 AM Number of Addenda: 0 Note Initiated On: 10/16/2022 10:13 AM Procedure Note Philippe Oscar DO - 10/16/2022 [facility] Patient Name: Sonja Avendaño Procedure Date No Time: 10/16/2022 CSN : [id number] Date of : 1950 Admit Type: Outpatient Age: 72 Room: [place] [address] Gender: Female Note Status: Finalized Attending MD: [...] pulse, and oxygen saturations were monitored continuously. [facility]-H[facility] # [id number] PEDIATRIC COLONOSCOPE was introduced through the anus [...] office PRN. Procedure Code(s): --- Professional --- 58284, Colonoscopy, flexible; with removal of tumor(s), polyp(s), [...] perforation orabscess without bleeding CPT copyright 2021 [employer]. All rights reserved. The codes documented in this report are preliminary and upon rubber heel and sole press tender reviewmay be revised to meet current compliance requirements. DO Philippe Mendes DO 10/16/2022 10:50:41 AM Number of Addenda: 0 Note Initiated On: 10/16/2022 10:13 AM Authorizing ProviderResult TypeResult StatusMicpepe BLANKENSHIPI PROCEDURE ORDERABLESFinal ResultPerforming OrganizationAddressCity/State/ZIP CodePhone Number PM CARDIOVASCULAR from Last 3 Months or Most Recently Relevant to Health Maintenance Insurance Care Teams Team MemberRelationshipSpecialtyStart DateEnd Date TommiewShaikh aguilar MD PCP - GeneralInternal Medicine08/10/22
[2025-04-14 11:29] LABS: Hematocrit 32.2 % (36.0-48.0); Hemoglobin 10.4 g/dL (12.0-16.0); Immature Granulocytes Abs Auto 0.02 10^3/uL (0.00-0.03); Immature Granulocytes Pct Auto 0.2 % (0.0-0.5); Lymphocytes Absolute Auto 2.6 10^3/uL (1.2-3.8); Mean Corpuscular HGB Conc 32.3 g/dL (29.9-35.2); Mean Corpuscular Hemoglobin 27.2 pg (26.7-34.0); Mean Corpuscular Volume 84.1 fL (81.0-99.0); Platelet Count 237 10^3/uL (150-450); Red Blood Count 3.83 10^6/uL (4.20-5.40); White Blood Count 8.9 10^3/uL (4.0-11.0)
[2025-04-14 12:51] LABS: Iron 39.0 ug/dL (50.0-170.0); Percent Iron Saturation 18.9 %; Total Iron Binding Capacity 206.0 ug/dL (250.0-450.0)
[2025-04-14 13:12] LABS: Ferritin 79.0 ng/mL (8.0-252.0)
[2025-04-15 08:08] LABS: Transferrin 181 mg/dL (192-364)
== END 2025-04-14 09:29 | disposition home or self-care (01) ==
LOC: LAB 09:33
PROVIDERS: PCP Nurse Practitioner; Visit Provider Nurse Practitioner
DX: D50.9 Iron deficiency anemia, unspecified (principal)
CPT/HCPCS: 36415; 82728; 83540; 83550; 84466; 85025